=== PATIENT | male | born 1970 | race Caucasian/White ===

== ENCOUNTER 2020-05-10 18:21 | Outpatient (REF) | payer MEDICAID, SELFPAY ==
--- NOTE | 2020-05-10 | XR_ITS ---
EXAMINATION: XR KNEE, LEFT CLINICAL INFORMATION: Contusion of knee COMPARISON: None TECHNIQUE: Four views of the left knee. FINDINGS: No fracture or subluxation. Moderate medial compartment joint space narrowing. Tricompartmental marginal osteophytes are noted. Bipartite patella. No joint effusion. Prominent anterior soft tissue swelling. IMPRESSION: Prominent soft tissue swelling anteriorly. No acute osseous abnormality. Degenerative changes which are greatest at the medial compartment.
== END 2020-05-10 18:22 | disposition home or self-care (01) ==
LOC: HO.XRAY 18:21
PROVIDERS: PCP Internal Medicine; Visit Provider Emergency Medicine
DX: S80.02XA Contusion of left knee, initial encounter (principal)
CPT/HCPCS: 73564

== ENCOUNTER 2020-06-01 13:04 | Outpatient (REF) | payer MEDICAID, SELFPAY ==
--- NOTE | 2020-06-01 13:10 | XR_ITS ---
EXAMINATION: XR KNEE AP STANDING CLINICAL INFORMATION: Left knee pain COMPARISON: None TECHNIQUE: AP bilateral standing view of the knees was obtained. FINDINGS: Medial and lateral joint space compartments of the right knee are maintained with some mild marginal spurring about the medial joint space compartment. There is moderate narrowing of the medial joint space compartment of the left knee with marginal sclerosis and spurring. There is a bipartite patella present. No fracture or destructive bony lesion identified. XR/XR knee standing BI IMPRESSION: 1. No significant abnormality AP right knee. 2. Medial joint space compartment narrowing left knee. 3. Bipartite left patella.
== END 2020-06-01 13:05 | disposition home or self-care (01) ==
LOC: HO.HOSX 13:04
PROVIDERS: PCP Internal Medicine; Referring Provider Internal Medicine; Visit Provider Orthopaedic Surgery
DX: M17.12 Unilateral primary osteoarthritis, left knee (principal); M54.16 Radiculopathy, lumbar region
CPT/HCPCS: 20610; 73565; 99202; J1100

== ENCOUNTER 2020-07-14 08:24 | Outpatient (REF) | payer MEDICAID, SELFPAY | END 2020-07-14 08:25 | disposition home or self-care (01) | LOC: HO.LAB 08:24 | PROVIDERS: Visit Provider Internal Medicine | DX: Z20.828 Contact with and (suspected) exposure to other viral communicable diseases (principal) | CPT/HCPCS: C9803; U0003 ==

== ENCOUNTER → 2020-08-10 15:06 | Outpatient (BNVA) | payer MEDICAID, SELFPAY | PROVIDERS: PCP Internal Medicine; Visit Provider Anesthesiology | DX: M47.817 Spondylosis without myelopathy or radiculopathy, lumbosacral region (principal); M46.1 Sacroiliitis, not elsewhere classified; E66.01 Morbid (severe) obesity due to excess calories | CPT/HCPCS: 99202 ==

== ENCOUNTER 2020-08-29 07:38 | Outpatient (REF) | payer MEDICAID, SELFPAY ==
--- NOTE | 2020-08-29 07:59 | FL_ITS ---
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 TECHNIQUE: Fluoroscopy time: 0.6 minutes DAP: 12.9 Gycm2 Images: 6 Multiple intraoperative fluoroscopic images are submitted during multilevel injections of the lumbar spine. Correlation with operative report. Evaluation is limited secondary to fluoroscopic technique. IMPRESSION: Intra-operative fluoroscopic imaging provided by radiology multilevel injections of the lumbar spine. Please refer to operative note for further information.
== END 2020-08-29 07:39 | disposition home or self-care (01) ==
LOC: HO.RADIR 07:38
PROVIDERS: Visit Provider Anesthesiology
DX: M47.817 Spondylosis without myelopathy or radiculopathy, lumbosacral region (principal); M46.1 Sacroiliitis, not elsewhere classified; E66.01 Morbid (severe) obesity due to excess calories; E78.00 Pure hypercholesterolemia, unspecified
CPT/HCPCS: 64493; 64494; Q9967

== ENCOUNTER → 2020-09-04 09:20 | Outpatient (BNVA) | payer MEDICAID, SELFPAY | PROVIDERS: PCP Internal Medicine; Visit Provider Anesthesiology ==

== ENCOUNTER 2020-09-06 11:00 | Outpatient (RCR) | payer MEDICAID, SELFPAY | END 2020-10-26 12:23 | disposition other institution (70) | LOC: HO.PT 11:00 | PROVIDERS: PCP Internal Medicine; Visit Provider Internal Medicine | DX: M54.5 Low back pain (principal) | CPT/HCPCS: 97110; 97140; 97162; 97530 ==

== ENCOUNTER 2020-10-23 10:11 | Outpatient (REF) | payer MEDICAID, SELFPAY | END 2020-10-23 10:12 | disposition home or self-care (01) | LOC: HO.LAB 10:11 | PROVIDERS: Visit Provider Internal Medicine | DX: Z20.822 Contact with and (suspected) exposure to COVID-19 (principal) | CPT/HCPCS: 36415; C9803; U0003; U0005 ==

== ENCOUNTER 2020-12-04 15:36 | Outpatient (REF) | payer MEDICAID, SELFPAY | END 2020-12-04 15:37 | disposition home or self-care (01) | LOC: HO.LAB 15:36 | PROVIDERS: Visit Provider Internal Medicine | DX: Z20.822 Contact with and (suspected) exposure to COVID-19 (principal) | CPT/HCPCS: C9803; U0003; U0005 ==

== ENCOUNTER 2020-12-08 08:38 | Outpatient (REF) | payer MEDICAID, SELFPAY | END 2020-12-08 08:39 | disposition home or self-care (01) | LOC: HO.LAB 08:38 | PROVIDERS: Visit Provider Internal Medicine | DX: Z20.822 Contact with and (suspected) exposure to COVID-19 (principal) | CPT/HCPCS: C9803; U0003; U0005 ==

== ENCOUNTER → 2021-01-05 12:59 | Outpatient (BNVA) | payer MEDICAID, SELFPAY | PROVIDERS: PCP Internal Medicine; Referring Provider Internal Medicine; Visit Provider Nurse Practitioner Family | DX: Z01.818 Encounter for other preprocedural examination (principal); K59.00 Constipation, unspecified; K62.5 Hemorrhage of anus and rectum; K64.9 Unspecified hemorrhoids | CPT/HCPCS: 99202 ==

== ENCOUNTER → 2021-01-31 14:45 | Outpatient (BNVA) | payer MEDICAID, SELFPAY | PROVIDERS: Visit Provider Nurse Practitioner Family ==

== ENCOUNTER → 2021-02-22 08:47 | Outpatient (BNVA) | payer MEDICAID, SELFPAY | PROVIDERS: PCP Internal Medicine; Referring Provider Internal Medicine; Visit Provider Internal Medicine Cardiovascular Disease | DX: R06.01 Orthopnea (principal); R07.9 Chest pain, unspecified; R00.2 Palpitations; I42.9 Cardiomyopathy, unspecified; E11.9 Type 2 diabetes mellitus without complications; I10 Essential (primary) hypertension; E78.00 Pure hypercholesterolemia, unspecified; E66.01 Morbid (severe) obesity due to excess calories; Z68.36 Body mass index [BMI] 36.0-36.9, adult; Z79.899 Other long term (current) drug therapy | CPT/HCPCS: 93005; 99202 ==

== ENCOUNTER → 2021-03-29 10:08 | Outpatient (BNVA) | payer MEDICAID, SELFPAY | PROVIDERS: PCP Internal Medicine; Visit Provider Internal Medicine Pulmonary Disease | DX: G47.33 Obstructive sleep apnea (adult) (pediatric) (principal) | CPT/HCPCS: 99202 ==

== ENCOUNTER → 2021-04-05 08:36 | Outpatient (REF) | payer MEDICAID, SELFPAY ==
--- NOTE | 2021-04-05 08:42 | CA_ITS ---
Transthoracic Echocardiogram Patient (Last, First, Middle): Cole Hahn M Gender: Male Date of : 1970 Age: 50 Procedure Date: 04/05/2021 Procedure Type: Transthoracic Echocardiogram Location: OP Height: 182.88 cm Weight: 122.93 kg BSA: 2.42 m2 Heart Rate: bpm BP: 122 / 78 mmHg Spoke Maker: [email or web address] Referring MD: Drew Lindsey MD Symptoms: I42.9 - Cardiomyopathy, unspecified Conclusions: - Normal left ventricular size and systolic function. - Diastolic function is normal for age. - Normal right ventricular cavity size and systolic function. - No significant valvular or pericardial pathology. Findings Left Ventricle Normal left ventricular size and systolic function. There is moderately increased left ventricular wall thickness. The visually estimated ejection fraction is between 55-60%. There is no evidence of regional wall motion abnormalities. Diastolic function is normal for age. Right Ventricle Normal right ventricular cavity size and systolic function. Atria Both atria are normal in size. Aortic Valve Normal aortic valve structure and function. There is no aortic valve stenosis. There is no aortic valve regurgitation. Mitral Valve Normal mitral valve structure and function. There is no mitral valve regurgitation. There is no mitral valve stenosis. Pulmonic Valve The pulmonic valve is likely normal. Tricuspid Valve Normal tricuspid valve structure and function. There is trace tricuspid valve regurgitation. Normal right atrial pressure. There is no evidence of pulmonary hypertension. Great Vessels There is mild dilatation of the ascending aorta. The visualized portions of the pulmonary artery and branches are normal. Venous The inferior vena cava is normal in size and collapses greater than 50% with inspiration. Pericardium/Pleural There is no evidence of pericardial effusion. Prior Study Comparison No prior study available for comparison. Measurements 2D Linear Measurements IVSd: 1.35 0.6-0.9/0.6-1.0 cm LVIDd: 5.17 3.9-5.3/4.2-5.9 cm LVIDd Index: 2.14 2.4-3.2/2.2-3.1 cm/m2 LVIDs: 3.39 2.0-3.6 cm LVPWd: 1.41 0.7-1.1 cm Ao Root: 3.50 2.1-3.5 cm LA Diam: 3.90 2.7-3.8/3.0-4.0 cm LAIDs Index: 1.61 1.5-2.3 cm/m2 LV Mass: 374.91 67-162/88-224 g LV Mass Index: 154.92 43-95/49-115 g/m2 LVOT Diam: 2.40 3.0+(-)1.3 cm 2D Systolic Function EF 4C: 59.00 >55% EF 2C: 65.60 >55% EF BiP: 64.00 >55% Mitral Valve MV Pk E: 0.47 MV PK A: 0.62 MV Decel Time: 107.00 E/A: 0.80 E'Lateral: 6.85 E'Medial: 5.11 E/E' Med: 9.20 E/E' Lat: 6.90 PHT: 31.00 MVA PHT: 7.10 Decel Williamson: 4.42 Aortic Valve AoV Pk Eliazar: 1.49 AoV Pk Grad: 9.00 LVOT LVOT Pk Eliazar: 0.81 LVOT Mn Eliazar: 0.53 LVOT VTI: 0.15 LVOT Pk Grad: 3.00 LVOT Mn Grad: 1.00 LVOT Diam: 2.40 LVOT Area: 4.52 Diastolic Function MV Pk E: 0.47 MV Pk A: 0.62 E/A: 0.80 E'Medial: 5.11 E/E' Med: 9.20 E' Laterial: 6.85 E/E' Lat: 6.90 Right Ventricle TAPSE (mm): 2.14 Tricuspid Valve TR Pk Eliazar: 2.01 TR Pk Grad: 16.00 RA Press: 3.00 RVSP: 19.00 Great Vessels Aorta Ao Root-2D: 3.50 2.0-3.7 cm Ao Asc: 3.60 2.1-3.4 cm Updated in Other Vendor System with Status of Final Drew Lindsey MD electronically signed on 04/06/2021 8:40:11 PM with status of Final
--- NOTE | 2021-04-05 08:42 | CA_ITS ---
Acquisition Time: 2021-04-05 09:31:15 Total Exercise Time: 00:04:17 Test Indications: Dyspnea Medications: AMLODIPINE CITALOPRAM JARDIANCE LISINOPRIL METFORMIN Protocol: JULISSA Max HR: 153 BPM 90% of Pred: 170 BPM Max BP: 142/080 mmHG Max Work Load: 6.1 METS Exercise stress test with exercise 4 min 17 sec of Julissa protocol achieving 90% MPHR, and request to stop, with moderate shortness of breath and fatigue, no chest discomfort, with isolated PVC, with normotensive response to exercise, without EKG changes meeting criteria for ischemia. In recovery his breathing returned to baseline normal. Test reviewed with Dr Murcia. Referred By: Drew Lindsey Overread By: TALISHA FRITZ
== END ==
LOC: HO.CARD 08:36
PROVIDERS: Visit Provider Internal Medicine Cardiovascular Disease
DX: R07.9 Chest pain, unspecified (principal); I42.9 Cardiomyopathy, unspecified; R06.01 Orthopnea
CPT/HCPCS: 93017; 93306

== ENCOUNTER → 2021-04-18 12:01 | Outpatient (BNVA) | payer MEDICAID, SELFPAY | PROVIDERS: PCP Internal Medicine; Visit Provider Internal Medicine Cardiovascular Disease | DX: Z01.810 Encounter for preprocedural cardiovascular examination (principal); E66.01 Morbid (severe) obesity due to excess calories; I10 Essential (primary) hypertension; R07.9 Chest pain, unspecified | CPT/HCPCS: 99212 ==

== ENCOUNTER → 2021-05-02 09:46 | Outpatient (REF) | payer MEDICAID, SELFPAY ==
--- NOTE | ~2021-05-02 | US_ITS ---
EXAMINATION: US ABDOMEN COMPLETE CLINICAL INFORMATION: Abnormal LFTs. COMPARISON: None TECHNIQUE: Real-time imaging of the abdominal viscera. FINDINGS: PANCREAS: Normal. The visualized pancreatic head and body are normal in appearance. The remainder of the pancreas is obscured from visualization by the overlying bowel gas. ABDOMINAL AORTA: The proximal, mid, and distal segments are normal in caliber. INFERIOR VENA CAVA: Largely obscured by overlapping bowel gas. LIVER: The liver is normal in size. The liver contour is normal. There is diffuse increased liver parenchymal echotexture. Within the anterior segment of the right hepatic lobe, a 2.5 x 1.5 x 1.9 cm hypoechoic, partially obscured circumscribed mass is seen. This shows slight associated color Doppler flow. There is no intrahepatic biliary duct dilatation seen. GALLBLADDER: Normal. The gallbladder is physiologically distended without evidence of stones, sludge, polyps, wall thickening or pericholecystic fluid. COMMON BILE DUCT: Normal in caliber measuring 0.2 cm in diameter. RIGHT KIDNEY: Normal. No hydronephrosis. No renal calculi or focal parenchymal lesions. The kidney measures 12.6 cm in maximum dimension. LEFT KIDNEY: Normal. No hydronephrosis. No renal calculi or focal parenchymal lesions. The kidney measures 11.5 cm in maximum dimension. SPLEEN: Normal. The spleen measures 11.9 cm in maximum dimension. FREE FLUID: None. US/US abdomen complete IMPRESSION: 1. There is generalized increase in hepatic echotexture, consistent with fatty infiltration or hepatocellular disease. Please correlate clinically. No intrahepatic biliary dilatation is seen. 2. A 2.5 cm in maximal diameter hypoechoic mass is seen within the anterior segment of the right hepatic lobe. This is an indeterminate finding, and the possibility of neoplasm cannot be excluded with certainty on the basis of this ultrasound appearance. Recommend further evaluation with contrast-enhanced CT or MRI (liver mass protocol). 3. Technically limited ultrasound examination of the pancreatic tail and inferior vena cava. A preliminary report was provided by the [facility] on 05/03/2021.
== END ==
LOC: HO.SL 09:46
PROVIDERS: PCP Internal Medicine; Visit Provider Hospitalist
DX: G47.33 Obstructive sleep apnea (adult) (pediatric) (principal); R94.5 Abnormal results of liver function studies
CPT/HCPCS: 76700; 95806

== ENCOUNTER → 2021-05-17 11:31 | Outpatient (BNVA) | payer MEDICAID, SELFPAY | PROVIDERS: PCP Internal Medicine; Visit Provider Internal Medicine Pulmonary Disease | DX: Z01.811 Encounter for preprocedural respiratory examination (principal); G47.33 Obstructive sleep apnea (adult) (pediatric) | CPT/HCPCS: 99212 ==

== ENCOUNTER 2021-05-17 11:59 | Outpatient (REF) | payer MEDICAID, SELFPAY | END 2021-05-17 12:00 | disposition home or self-care (01) | LOC: HO.LAB 11:59 | PROVIDERS: PCP Internal Medicine; Visit Provider Internal Medicine | DX: Z20.822 Contact with and (suspected) exposure to COVID-19 (principal) | CPT/HCPCS: C9803; U0003; U0005 ==

== ENCOUNTER → 2021-06-01 09:20 | Outpatient (BNVA) | payer MEDICAID, SELFPAY | PROVIDERS: PCP Internal Medicine; Visit Provider Orthopaedic Surgery | DX: M17.12 Unilateral primary osteoarthritis, left knee (principal) | CPT/HCPCS: 20610; 99212; J1020 ==

== ENCOUNTER 2021-06-22 08:53 | Outpatient (REF) | payer MEDICAID, SELFPAY ==
--- NOTE | ~2021-06-22 | CT_ITS ---
EXAMINATION: CT CHEST WITHOUT CONTRAST CT ABDOMEN AND PELVIS WITHOUT AND WITH CONTRAST. CLINICAL INFORMATION: SOB and hypoxia. Hepatomegaly. COMPARISON: Chest x-ray 06/22/2021 TECHNIQUE: 5 mm thin axial and reformatted 3 mm thin sagittal and coronal images of chest were obtained. Subsequently axial 5 mm thin 85 mL nonionic contrast. DLP 397 mGy/cm. FINDINGS: Chest: There is moderate dense opacities seen in both upper lobes, lower lobes, right middle lobe and to a lesser extent in the lingula consistent with multilobar infiltrates. No large mass or nodule visualized. The thyroid lobes are symmetrical and normal. The central trachea and bronchi are widely patent. Heart size and the great vessels are normal caliber. No pericardial effusion seen. There are small shotty para-aortic lymph nodes. There is no pleural effusion, calcified plaques or thickening. Small shotty lymph nodes seen in the axilla. There is moderate ventral spondylosis mid and lower dorsal spine. No lytic or sclerotic process seen. Abdomen and pelvis: There are liver is normal size, contour and density. Liver measures 15 cm in craniocaudad length on sagittal image 116/7 No focal enhancing lesion or intrahepatic ductal dilatation seen. No bowel stones or wall thickening. Visualized spleen, pancreas and bilateral adrenal glands are unremarkable. Both kidneys are normal size, shape and position. There is no radiopaque renal calculi or hydronephrosis. There is no enhancing renal mass or cyst. No perinephric stranding seen. The abdominal aorta is normal caliber. There are small shotty lymph nodes in the celiac axis with the largest 1.2 cm lymph node noted on axial image 57/5. There is oral contrast opacifying small bowel loops and colon without any distention or mural thickening. No free air or free fluid. Imaging through the pelvis reveals unremarkable bladder. There is mild to moderate stool in the rectum and sigmoid colon. No free fluid or free air. No abnormal pelvic or inguinal lymph nodes. Bone windows reveal degenerative disc changes with vacuum disc phenomena L4-L5 and L5/S1 disc levels with ventral spondylosis. CT/CT abdomen pelvis wo/w con IMPRESSION: Multilobar infiltrates without pleural effusion. Reactive lymph nodes in the mediastinum. Borderline normal liver with no focal lesion seen. Small shotty lymph nodes in the celiac axis. Mild constipation.
[2021-06-22] MEDS: iohexoL 350 MG/ML 100 ML INFUS..BTL IV (09:54)
== END 2021-06-22 08:54 | disposition home or self-care (01) ==
LOC: HO.CT 08:53
PROVIDERS: PCP Internal Medicine; Visit Provider Internal Medicine
DX: R16.0 Hepatomegaly, not elsewhere classified (principal); R06.02 Shortness of breath; R09.02 Hypoxemia
CPT/HCPCS: 74178; Q9967

== ENCOUNTER 2021-06-22 09:59 | Inpatient (IN) | payer MEDICAID, SELFPAY ==
[2021-06-22] VITALS (9 sets, daily range): BP systolic 97–108; BP diastolic 51–67; PULSE 77–117; RESP 15–22; TEMP 37.1–38.2; O2SAT 86–96; BMI 30.8
--- NOTE | ~2021-06-22 | CT_ITS ---
EXAMINATION: CT CHEST WITHOUT CONTRAST CT ABDOMEN AND PELVIS WITHOUT AND WITH CONTRAST. CLINICAL INFORMATION: SOB and hypoxia. Hepatomegaly. COMPARISON: Chest x-ray 06/22/2021 TECHNIQUE: 5 mm thin axial and reformatted 3 mm thin sagittal and coronal images of chest were obtained. Subsequently axial 5 mm thin 85 mL nonionic contrast. DLP 397 mGy/cm. FINDINGS: Chest: There is moderate dense opacities seen in both upper lobes, lower lobes, right middle lobe and to a lesser extent in the lingula consistent with multilobar infiltrates. No large mass or nodule visualized. The thyroid lobes are symmetrical and normal. The central trachea and bronchi are widely patent. Heart size and the great vessels are normal caliber. No pericardial effusion seen. There are small shotty para-aortic lymph nodes. There is no pleural effusion, calcified plaques or thickening. Small shotty lymph nodes seen in the axilla. There is moderate ventral spondylosis mid and lower dorsal spine. No lytic or sclerotic process seen. Abdomen and pelvis: There are liver is normal size, contour and density. Liver measures 15 cm in craniocaudad length on sagittal image 116/7 No focal enhancing lesion or intrahepatic ductal dilatation seen. No bowel stones or wall thickening. Visualized spleen, pancreas and bilateral adrenal glands are unremarkable. Both kidneys are normal size, shape and position. There is no radiopaque renal calculi or hydronephrosis. There is no enhancing renal mass or cyst. No perinephric stranding seen. The abdominal aorta is normal caliber. There are small shotty lymph nodes in the celiac axis with the largest 1.2 cm lymph node noted on axial image 57/5. There is oral contrast opacifying small bowel loops and colon without any distention or mural thickening. No free air or free fluid. Imaging through the pelvis reveals unremarkable bladder. There is mild to moderate stool in the rectum and sigmoid colon. No free fluid or free air. No abnormal pelvic or inguinal lymph nodes. Bone windows reveal degenerative disc changes with vacuum disc phenomena L4-L5 and L5/S1 disc levels with ventral spondylosis. CT/CT chest wo con IMPRESSION: Multilobar infiltrates without pleural effusion. Reactive lymph nodes in the mediastinum. Borderline normal liver with no focal lesion seen. Small shotty lymph nodes in the celiac axis. Mild constipation.
--- NOTE | ~2021-06-22 | XR_ITS ---
EXAMINATION: XR CHEST CLINICAL INFORMATION: Abnormal LFTs. Subcapsular lesion right hepatic lobe on ultrasound 2.5 cm. COMPARISON: Ultrasound abdomen 05/02/2021. TECHNIQUE: Portable upright AP view of the chest was obtained. FINDINGS: There are small ill-defined airspace opacities periphery left upper zone and mid right base. There is a vague rounded opacity right suprahilar region measuring 2.6 cm in diameter. The heart is normal in size. The vascularity is normal. There is no effusion. The hilar and mediastinal contours are normal. There are degenerative changes thoracic spine. XR/XR chest 1V IMPRESSION: 1. Ill-defined airspace opacities left upper zone and right mid base. 2. Rounded opacity 2.6 cm right suprahilar region. 3. No effusion.
--- NOTE | 2021-06-22 10:01 | ED.URI ---
HPI - URI/Sore Throat General Chief Complaint: Upper Respiratory Symptoms Stated Complaint: flu like Time Seen by Provider: 06/22/21 10:01 Source: patient Mode of arrival: ambulatory Limitations: no limitations History of Present Illness HPI Narrative: 51 yo male past medical history significant for obesity, hypertension, diabetes, sleep apnea, chronic back pain presents to the ED with complaints of malaise, cough, body aches times 1 week. Patient tells me that the symptoms have been progressively worsening, he says his cough is generally dry but at times he has some sputum production, he tells me there is thick sputum. He states that when he walks he feels as though his entire body hurts, and at times become short of breath. Patient is not vaccinated against COVID-19. He denies recent sick contacts. He denies chest pain, headaches, dizziness, fevers, chills, nausea, vomiting, rhinorrhea, sinus pain. MD elicited complaint: cough Pertinent past history: other (LIANE) Onset (ago): week(s) (1) Consistency: constant Severity: severe Description of mucous: other (thick) Able to tolerate fluids by mouth: Yes Exacerbating factors: nothing Relieving factors: nothing Associated symptoms: myalgias, cough and shortness of breath Treatments prior to arrival: none Related Data Home Medications Medication Instructions Recorded Confirmed empagliflozin 10 mg tablet 10 mg PO DAILY 08/29/20 06/07/21 (Jardiance) lisinopril 30 mg tablet 30 mg PO DAILY 08/29/20 06/07/21 melatonin 5 mg tablet 10 mg PO BEDTIME PRN 08/29/20 06/07/21 citalopram 10 mg/5 mL oral solution 10 mg PO DAILY 01/31/21 04/18/21 Previous Rx's Medication Instructions Recorded docusate sodium 100 mg capsule 100 mg PO BEDTIME #30 cap 01/05/21 hydrocortisone 2.5 % topical cream 1 appl TN BID-QID PRN #30 g 01/05/21 with perineal applicator (Anusol-HC) amlodipine 10 mg tablet 10 mg PO DAILY #60 tab 02/22/21 bisacodyl 5 mg tablet,delayed 10 mg PO ONCE 1 Days #2 tab 05/29/21 release (Dulcolax (bisacodyl)) lorazepam 2 mg capsule,extended 2 mg PO ONCE #5 cap 06/07/21 release 24 hr Allergies Allergy/AdvReac Type Severity Reaction Status Date / Time No Known Allergies Allergy Verified 06/07/21 13:24 Review of Systems Review of Systems: Constitutional : No Weight loss, No Fever, No Chills, No Fatigue, + Malaise ENT/Mouth : No sore throat, No Rhinorrhea Eyes: No Eye Pain, No Swelling, No Redness Cardiovascular : No Chest Pain, No SOB, No Dyspnea on Exertion, No Orthopnea, No Edema, No Palpitations Respiratory : + Cough, + Sputum, No Wheezing Gastrointestinal : No Nausea, No Vomiting, No Diarrhea, No Constipation, No abdominal Pain, No Hematochezia, No Melena Genitourinary : No Dysuria, No Urinary Frequency, No Hematuria, Musculoskeletal : No joint pain, + Myalgias, No Joint Swelling Skin : No Skin Lesions, No rash Neuro : No Weakness, No Numbness, No Dizziness, No Headache All other systems reviewed and are negative Yes all other systems are reviewed and are negative [facility] Past Medical History Attestation statement: The following information was validated with the patient. Source: old records reviewed and nursing notes reviewed Medical History (Updated 06/22/21 @ 14:11 by Ye Manley MD) Arthritis Blind left eye Chronic back pain Diabetes High cholesterol HTN (hypertension) Left knee pain Lumbar back pain with radiculopathy affecting lower extremity Morbid obesity Osteoarthritis of left knee Sacroiliitis Sleep apnea Spondylosis of lumbosacral spine without myelopathy Surgical History History of hernia surgery History of testicular surgery S/P nasal surgery Family History Family History (Updated 06/07/21 @ 13:27 by Tamiko Alberto RN) Mother Intestinal cancer Brother Narcolepsy Social History Social History Alcohol intake: current Alcohol intake frequency: a few times a week Alcohol type: beer and hard liquor Patient Tobacco Use Status: Never used Tobacco Use of substances other than those prescribed or required for medical reasons: No Advance Directives: No Advance Directives Information Provided: No Current occupational status: unemployed Current occupation: left handed Physical Exam Vital Signs: Vital Signs: Last Vital Signs Temp 100.2 F 06/22/21 12:19 Pulse 90 06/22/21 13:02 Resp 20 06/22/21 13:02 BP 106/67 06/22/21 13:02 Pulse Ox 93 06/22/21 13:02 Body Mass Index 30.8 Patients vitals significant for fever and tachycardia. Appearance: Alert.? Oriented X3.? No acute distress.? Head: Normocephalic, atraumatic, no step-offs or deformities Eyes: Pupils equal, round and reactive to light.? ENT: Pharynx normal.? Neck: Normal inspection.? Neck supple.? CVS: Rapid heart rate and normal rhythm.? Pulses normal.? Respiratory: No respiratory distress.?+ diminished breath sounds bilaterally Abdomen: Soft and nontender.? Skin: Skin warm and dry.? Normal skin color.? Normal skin turgor.? Extremities: No lower extremity edema.? No calf ttp. 5/5 strength to bilateral upper and lower extremities Back: No midline tenderness, no C-spine tenderness, full range of motion, no CVA tenderness bilaterally Neuro: Oriented X 3.? No motor deficit.? No sensory deficit. Course Reevaluation(s) Reevaluation #1: No leukocytosis, a normocytic anemia is noted, lactic acid 1.4, no acute electrolyte abnormalities, transaminases noted to be elevated they were also elevated on , Trop 10.6 second trop ordered for 2:30. BNP WNL. D-dimer pending Time: 12:00 Reevaluation #2: D-dimer negative. No need to do a CTA at this time, perc score of 1 due to age. Unlikely that this is a pulmonary embolism. Patient is febrile, Tylenol will be given. He remains hypoxic saturating 90% on room air, now havign slightly labored breathing. He will be placed on 2 L via nasal cannula. An ambulatory O2 will also be done. Patient will likely be admitted due to hypoxia. Time: 12:42 Reevaluation #3: CXR-shows an ill-defined airspace opacities in the left upper zone and right middle base. Also shows a rounded opacity 2.6 cm in the right suprahilar region. No effusions noted or consolidations. Time: 12:53 Additional Reevaluation(s): Dry chest CT orderd Naima KELLY will be admitting this patient [facility] - URI/Sore Throat MDM Narrative Medical decision making narrative: 1001 51 yo male pmhx significant for obesity, HTN, DM, sleep apnea, chronic back pain presents to the ED w/ complaints of productive cough, SOB, malaise X1 week. Not vaccinated. No sick contacts Upon physical examination patient appears well, no acute distress. Vital signs significant for tachycardia and hypoxia, patient 91% on room air. No labored breathing no use of accessory muscles for breathing. S1-S2 appreciated with a rapid regular rhythm. Lung sounds diminished bilaterally. Abdomen soft nontender nondistended. 5/5 strength upper and lower extremities. Pupils equal round and reactive to light. No focal neuro deficits. Plan at this time is to obtain a COVID swab, and chest x-ray to rule out pneumonia. Medical Records Attestation: I reviewed the patient's medical records. Lab Data Attestation: I reviewed the patient's lab results. Result diagrams: 06/22/21 11:33 06/22/21 11:33 Labs: Lab Results 06/22/21 06/22/21 06/22/21 Range/Units 11:14 11:33 11:33 WBC 6.4 (4.8-10.8) X10*3/uL RBC 4.35 L (4.60-5.80) X10*6/uL Hgb 13.9 L (14.0-18.0) g/dl Hct 41.1 L (42.0-52.0) % MCV 94.5 (80.0-98.0) fL MCH 32.0 (27.0-33.0) pg MCHC 33.8 (31.0-36.0) g/dl RDW 12.0 (11.0-16.0) % Plt Count 200 (160-400) X10*3/uL MPV 11.3 (9.4-12.4) fL Immature Gran % (Auto) 0.5 H (0.0-0.4) % Neut % (Auto) 77.2 H (45-73) % Lymph % (Auto) 11.1 L (20-40) % [place] % (Auto) 11.0 (2-11) % Eos % (Auto) 0.0 (0-4) % Baso % (Auto) 0.2 (0-2) % Lymph # (Auto) 0.7 L (1.2-4.9) X10*3/uL [place] # (Auto) 0.7 (0.1-1.2) X10*3/uL Eos # (Auto) 0.0 (0.0-0.4) X10*3/uL Baso # (Auto) 0.0 (0.0-0.2) X10*3/uL Abs Immat Gran (auto) 0.03 (0.00-0.03) X10*3/uL Absolute Neuts (auto) 4.9 (2.0-8.3) x10*3/uL Absolute Nucleated RBC 0.000 (0.0-0.012) X10*3/uL Nucleated RBC % (auto) 0.0 (0.0-0.2) /100WBC D-Dimer High Sensitivty 161 NG/ML Sodium (135-145) mmol/L Potassium (3.3-5.1) mmol/L Chloride (96-108) mmol/L Carbon Dioxide (22-29) mmol/L Anion Gap (12-20) BUN (9-16) mg/dL Creatinine (0.5-1.4) mg/dL Estim Creat Clear Calc Estimated GFR Random Glucose (60-115) mg/dL Lactic Acid (0.5-2.0) mmol/L Calcium (8.4-10.2) mg/dL Magnesium (1.6-2.6) mg/dL Total Bilirubin (0.0-1.0) mg/dL AST (5-37) U/L ALT (0-40) U/L Alkaline Phosphatase (39-117) U/L Troponin I High Sens (<3.5-35.0) ng/L B-Natriuretic Peptide (<100) pg/mL Total Protein (6.5-8.0) g/dL Albumin (3.5-5.0) g/dL COVID-19 (ALLEN) Positive A (Negative) COVID-19 Clin Com See Note 06/22/21 06/22/21 06/22/21 Range/Units 11:33 11:33 11:35 WBC (4.8-10.8) X10*3/uL RBC (4.60-5.80) X10*6/uL Hgb (14.0-18.0) g/dl Hct (42.0-52.0) % MCV (80.0-98.0) fL MCH (27.0-33.0) pg MCHC (31.0-36.0) g/dl RDW (11.0-16.0) % Plt Count (160-400) X10*3/uL MPV (9.4-12.4) fL Immature Gran % (Auto) (0.0-0.4) % Neut % (Auto) (45-73) % Lymph % (Auto) (20-40) % [place] % (Auto) (2-11) % Eos % (Auto) (0-4) % Baso % (Auto) (0-2) % Lymph # (Auto) (1.2-4.9) X10*3/uL [place] # (Auto) (0.1-1.2) X10*3/uL Eos # (Auto) (0.0-0.4) X10*3/uL Baso # (Auto) (0.0-0.2) X10*3/uL Abs Immat Gran (auto) (0.00-0.03) X10*3/uL Absolute Neuts (auto) (2.0-8.3) x10*3/uL Absolute Nucleated RBC (0.0-0.012) X10*3/uL Nucleated RBC % (auto) (0.0-0.2) /100WBC D-Dimer High Sensitivty NG/ML Sodium 133 L (135-145) mmol/L Potassium 4.3 (3.3-5.1) mmol/L Chloride 98 (96-108) mmol/L Carbon Dioxide 22 (22-29) mmol/L Anion Gap 17 (12-20) BUN 13 (9-16) mg/dL Creatinine 1.16 (0.5-1.4) mg/dL Estim Creat Clear Calc 98.9 Estimated GFR > 60 Random Glucose 193 H (60-115) mg/dL Lactic Acid 1.4 (0.5-2.0) mmol/L Calcium 8.8 (8.4-10.2) mg/dL Magnesium 2.5 (1.6-2.6) mg/dL Total Bilirubin 0.7 (0.0-1.0) mg/dL AST 115 H (5-37) U/L ALT 72 H (0-40) U/L Alkaline Phosphatase 84 D (39-117) U/L Troponin I High Sens 10.6 (<3.5-35.0) ng/L B-Natriuretic Peptide 13 (<100) pg/mL Total Protein 7.5 (6.5-8.0) g/dL Albumin 4.0 (3.5-5.0) g/dL COVID-19 (ALLEN) (Negative) COVID-19 Clin Com Imaging Data Chest x-ray: Attestation: I personally reviewed and interpreted this imaging study as follows: Radiologist's impression: XR/XR chest 1V IMPRESSION: ? 1. Ill-defined airspace opacities left upper zone and right mid base. 2. Rounded opacity 2.6 cm right suprahilar region. 3. No effusion. ECG Data Attestation: I personally reviewed and interpreted this ECG as follows: ECG interpretation date: 06/22/21 ECG interpretation time: 11:10 Prior ECG tracings: available for review Interpretation: Ventricular rate of 104, TN normal, QRS normal, QT/QTC normal. EKG shows sinus tachycardia with right bundle branch block. No ST elevations or inversions. No acute ischemia. No previous EKGs to compare with. Critical Care Time Critical Care Time Critical Care Time: No Discharge Plan Discharge Clinical Impression: Hypoxia, COVID Patient Disposition: Admitted As Inpatient
--- NOTE | 2021-06-22 10:35 | ECG_ITS ---
Test Reason : FLU LIKE SYMP Blood Pressure : / mmHG Vent. Rate : 104 BPM Atrial Rate : 104 BPM P-R Int : 166 ms QRS Dur : 128 ms QT Int : 360 ms P-R-T Axes : 048 000 031 degrees QTc Int : 473 ms Sinus tachycardia Right bundle branch block Abnormal ECG No previous ECGs available Referred By: Ugo Dimas Electronically Signed By:KAMRAN CHI MD
[2021-06-22 11:45] LABS: MANUAL DIFF FLAG NO
[2021-06-22 11:48] LABS: Basophils Percent Auto 0.2 % (0-2); Hematocrit 41.1 % (42.0-52.0); Hemoglobin 13.9 g/dl (14.0-18.0); Imm Gran Abs Auto 0.03 X10*3/uL (0.00-0.03); Imm Gran Pct Auto 0.5 % (0.0-0.4); Lymphocytes Absolute Auto 0.7 X10*3/uL (1.2-4.9); Lymphocytes Percent Auto 11.1 % (20-40); Mean Corpuscular HGB Conc 33.8 g/dl (31.0-36.0); Mean Corpuscular Volume 94.5 fL (80.0-98.0); Mean Platelet Volume 11.3 fL (9.4-12.4); Monocytes Absolute Auto 0.7 X10*3/uL (0.1-1.2); Neutrophils Absolute Auto 4.9 x10*3/uL (2.0-8.3); Neutrophils Percent Auto 77.2 % (45-73); Platelet Count 200 X10*3/uL (160-400); Red Blood Count 4.35 X10*6/uL (4.60-5.80); White Blood Count 6.4 X10*3/uL (4.8-10.8)
[2021-06-22 11:58] LABS: COVID-19 Test Positive (Negative); IDNOW Serial# 9DD0AD1C
[2021-06-22 12:01] LABS: Lactic Acid 1.4 mmol/L (0.5-2.0)
[2021-06-22 12:05] LABS: D Dimer High Sensitivity 161 NG/ML
[2021-06-22 12:08] LABS: Alanine Aminotransferase 72 U/L (0-40); Alkaline Phosphatase 84 U/L (39-117); Anion Gap 17 (12-20); Aspartate Amino Transferase 115 U/L (5-37); Bilirubin Total 0.7 mg/dL (0.0-1.0); Blood Urea Nitrogen 13 mg/dL (9-16); Calcium 8.8 mg/dL (8.4-10.2); Carbon Dioxide 22 mmol/L (22-29); Chloride 98 mmol/L (96-108); Creatinine Clr Calc Pharmacy 98.9; Estimated Glomerular Filt Rate > 60; Glucose Random 193 mg/dL (60-115); Magnesium 2.5 mg/dL (1.6-2.6); Potassium 4.3 mmol/L (3.3-5.1); Sodium 133 mmol/L (135-145); Total Protein 7.5 g/dL (6.5-8.0)
[2021-06-22 12:09] LABS: B Type Natriuretic Peptide 13 pg/mL (<100); Troponin-I High Sensitivity 10.6 ng/L (<3.5-35.0)
[2021-06-22] MEDS: 0.9 % Sodium Chloride 1,000 ML 999 ML IV (12:14)
[2021-06-22] MEDS: Acetaminophen 325 MG TABLET 650 MG PO (12:59)
--- NOTE | 2021-06-22 13:01 | PC.NURSE ---
ambulatory sats maintained at 92% around the room, but hr increased to 107
--- NOTE | 2021-06-22 14:37 | P.HPHOSP_ITS ---
History of Present Illness Date of Service: 06/22/21 Chief Complaint: Shortness of breath 51-year-old male presented with shortness of breath. Patient states with left past 5 days he has been feeling unwell, he has been having shortness of breath, worse on exertion, associated with dry cough and loss of taste. He denies any sick contacts. He notes some chills and subjective fevers. He has not been vaccinated against COVID. In ED patient found to be hypoxic, 86% on room air, COVID positive. Review of Systems Review of Systems: Constitutional: fever, Chills Eyes: denies blurry vision ENT: denies sore throat CVS:chest pain with cough Respiratory: dyspnea GI: no abdominal pain : denies dysuria MSK: denies neck pain Skin: denies rash Neuro: denies specific motor weakness Psych: denies suicidal ideation Endocrine: denies heat/cold intolerance Hematologic: denies easy bleeding Allergy: denies hives [facility] Medical History (Updated 06/22/21 @ 14:40 by Ye Manley MD) Arthritis Blind left eye Chronic back pain Diabetes High cholesterol HTN (hypertension) Left knee pain Lumbar back pain with radiculopathy affecting lower extremity Morbid obesity Osteoarthritis of left knee Sacroiliitis Sleep apnea Family History Mother Intestinal cancer Brother Narcolepsy Surgical History History of hernia surgery History of testicular surgery S/P nasal surgery Social History Alcohol intake: current Alcohol intake frequency: a few times a week Alcohol type: beer and hard liquor Patient Tobacco Use Status: Never used Tobacco Use of substances other than those prescribed or required for medical reasons: No Advance Directives: No Advance Directives Information Provided: No Current occupational status: unemployed Current occupation: left handed Meds Allergies Allergy/AdvReac Type Severity Reaction Status Date / Time No Known Allergies Allergy Verified 06/07/21 13:24 Active Medications: Current Medications Pharmacy Consult (Consult Rx Perform Med Rec) 1 each MISCELLANE ONCE PRN PRN Reason: Consult order Home Medications Medication Instructions Recorded Confirmed Last Taken Type empagliflozin 10 mg tablet 10 mg PO DAILY 08/29/20 06/07/21 Unknown History (Jardiance) lisinopril 30 mg tablet 30 mg PO DAILY 08/29/20 06/07/21 Unknown History melatonin 5 mg tablet 10 mg PO BEDTIME PRN 08/29/20 06/07/21 Unknown History citalopram 10 mg/5 mL oral solution 10 mg PO DAILY 01/31/21 04/18/21 Unknown History Physical Exam Vital Signs and Narrative: Vital Signs: Last Vital Signs Temp 99.1 F 06/22/21 14:32 Pulse 88 06/22/21 14:32 Resp 20 06/22/21 14:32 BP 97/60 06/22/21 14:32 Pulse Ox 96 06/22/21 14:34 Body Mass Index 30.8 General: Fatigued-appearing, able to talk in short sentences HEENT: atraumatic Neck: normal to visual inspection CVS: S1, S2, RRR Resp: diminished, mild use of accessory muscles Chest: non tender GI: soft, non tender, non distended : no CVA tenderness Skin: no rashes Extremities: no edema Neuro: Oriented X3, grossly intact Psych: cooperative Results Labs CBC and Chem 7: 06/22/21 11:33 06/22/21 11:33 Labs: Laboratory Results - last 24 hr 06/22/21 06/22/21 06/22/21 11:14 11:33 11:33 MCV 94.5 MCH 32.0 MCHC 33.8 RDW 12.0 Plt Count 200 MPV 11.3 Immature Gran % (Auto) 0.5 H Neut % (Auto) 77.2 H Lymph % (Auto) 11.1 L [place] % (Auto) 11.0 Eos % (Auto) 0.0 Baso % (Auto) 0.2 Lymph # (Auto) 0.7 L [place] # (Auto) 0.7 Eos # (Auto) 0.0 Baso # (Auto) 0.0 Abs Immat Gran (auto) 0.03 Absolute Neuts (auto) 4.9 Absolute Nucleated RBC 0.000 Nucleated RBC % (auto) 0.0 D-Dimer High Sensitivty 161 Anion Gap Estim Creat Clear Calc Estimated GFR Random Glucose Lactic Acid Calcium Magnesium Total Bilirubin AST ALT Alkaline Phosphatase Troponin I High Sens B-Natriuretic Peptide Total Protein Albumin COVID-19 (ALLEN) Positive A COVID-19 Clin Com See Note 06/22/21 06/22/21 06/22/21 11:33 11:33 11:35 MCV MCH MCHC RDW Plt Count MPV Immature Gran % (Auto) Neut % (Auto) Lymph % (Auto) [place] % (Auto) Eos % (Auto) Baso % (Auto) Lymph # (Auto) [place] # (Auto) Eos # (Auto) Baso # (Auto) Abs Immat Gran (auto) Absolute Neuts (auto) Absolute Nucleated RBC Nucleated RBC % (auto) D-Dimer High Sensitivty Anion Gap 17 Estim Creat Clear Calc 98.9 Estimated GFR > 60 Random Glucose 193 H Lactic Acid 1.4 Calcium 8.8 Magnesium 2.5 Total Bilirubin 0.7 AST 115 H ALT 72 H Alkaline Phosphatase 84 D Troponin I High Sens 10.6 B-Natriuretic Peptide 13 Total Protein 7.5 Albumin 4.0 COVID-19 (ALLEN) COVID-19 Clin Com Imaging Radiologist's Impressions: Impressions Chest X-Ray 06/22/21 10:16 IMPRESSION: 1. Ill-defined airspace opacities left upper zone and right mid base. 2. Rounded opacity 2.6 cm right suprahilar region. 3. No effusion. Assessment and Plan (1) Acute respiratory failure with hypoxia: Status: Acute (2) COVID: Status: Acute 51-year-old male presented with shortness of breath, found to be hypoxic and positive COVID acute hypoxic respiratory failure secondary to COVID pneumonia in a high risk patient given morbid obesity, fatty liver, diabetes, sleep apnea, non vaccinated wean O2 as tolerated, goal saturation 90-93% Decadron diabetes insulin, follow-up point of cares fatty liver likely alcoholic and nonalcoholic fatty liver weight loss, encourage not use alcohol liver mass outpatient follow-up 2.6 cm right suprahilar rounded opacity outpatient follow-up LIANE/ morbid obesity patient does not use any devices hypertension amlodipine and lisinopril hypertriglyceridemia will start fenofibrate DVT prophylaxis -lovenox Quality Stroke Does the patient have a stroke diagnosis?: No VTE Prior VTE?: No VTE Risk Level:: Medical - moderate - high VTE Device Contraindication: Treatment Not Indicated VTE Drug Contraindication: N/A - Med Ordered
[2021-06-22 15:01] LABS: Troponin-I High Sensitivity 8.4 ng/L (<3.5-35.0)
--- NOTE | 2021-06-22 15:05 | PHA.MEDREC ---
MED REC COMPLETE, MEDS REVIEWED WITH [employer] Pharmacy Consult ? Medication Reconciliation Pharmacy has completed the medication reconciliation.
[2021-06-22] MEDS: dexAMETHasone sod phosphate 4 MG/ML VIAL 6 MG IVPUSH (15:41)
[2021-06-22] MEDS: 0.9 % Sodium Chloride Flush 3 ML SYRINGE IVFLUSH (15:42)
[2021-06-22] MEDS: Enoxaparin Sodium 40 MG/0.4 ML SYRINGE SUBCUT (15:42)
[2021-06-22 18:02] LABS: Glucose, Whole Blood 135 mg/dL (60-115)
[2021-06-22 20:57] LABS: Glucose, Whole Blood 215 mg/dL (60-115)
[2021-06-22] MEDS: Insulin Lispro 100 UNIT/ML 3 ML VIAL SUBCUT (21:42)
[2021-06-22] MEDS: Fenofibrate 160 MG TABLET PO (21:42)
[2021-06-23] VITALS (7 sets, daily range): BP systolic 104–138; BP diastolic 63–84; PULSE 71–101; RESP 18–20; TEMP 36.3–36.8; O2SAT 93–99; BMI 30.5
[2021-06-23 05:40] LABS: Hematocrit 41.5 % (42.0-52.0); Mean Corpuscular HGB Conc 33.7 g/dl (31.0-36.0); Mean Corpuscular Hemoglobin 32.1 pg (27.0-33.0); Mean Corpuscular Volume 95.2 fL (80.0-98.0); Platelet Count 179 X10*3/uL (160-400); Red Blood Count 4.36 X10*6/uL (4.60-5.80); Red Cell Distribution Width 11.9 % (11.0-16.0); White Blood Count 2.9 X10*3/uL (4.8-10.8)
[2021-06-23 05:53] LABS: Anion Gap 14 (12-20); Blood Urea Nitrogen 11 mg/dL (9-16); Calcium 8.6 mg/dL (8.4-10.2); Carbon Dioxide 25 mmol/L (22-29); Chloride 102 mmol/L (96-108); Creatinine Clr Calc Pharmacy 141.1; Estimated Glomerular Filt Rate > 60; Glucose Fasting 141 mg/dL (60-99); Lactate Dehydrogenase 220 U/L (118-273); Potassium 4.5 mmol/L (3.3-5.1); Sodium 136 mmol/L (135-145)
[2021-06-23 07:54] LABS: Glucose, Whole Blood 145 mg/dL (60-115)
[2021-06-23] MEDS: Escitalopram Oxalate 20 MG TABLET PO (08:27)
[2021-06-23] MEDS: dexAMETHasone sod phosphate 4 MG/ML VIAL 6 MG IVPUSH (08:27)
[2021-06-23] MEDS: 0.9 % Sodium Chloride Flush 3 ML SYRINGE IVFLUSH ×3 (08:28→20:32)
--- NOTE | 2021-06-23 10:45 | P.PNIM_ITS ---
Subjective Subjective Date of Service: 06/23/21 Interval History: cc: sob interval history: Cardiovascular Cardiovascular: Reports no additional cardiovascular complaints Respiratory Respiratory: Reports no additional respiratory complaints Physical Exam Vital Signs: Vital Signs: Last Vital Signs Temp 98.2 F 06/23/21 07:30 Pulse 71 06/23/21 07:30 Resp 18 06/23/21 07:30 BP 104/63 06/23/21 07:30 Pulse Ox 93 06/23/21 07:30 Body Mass Index 30.5 General: AO X 3, no acute distress Resp: diminished, no accessory muscles used CVS: S1,S2,RRR GI: soft, non tender, non distended Neuro: motor grossly intact, alert Psych: appropriate affect, appropriate insight Objective Data Active Medications Acetaminophen (Acetaminophen 325 Mg Tablet) 650 mg PO Q6H PRN PRN Reason: Pain, Mild (Pain Scale 1-3) Amlodipine Besylate (Amlodipine Besylate 10 Mg Tablet) 10 mg PO DAILY [facility]; Protocol Last Admin: 06/23/21 09:59 Dose: Not Given Documented by: DARLIN Non-Admin Reason: Decreased Blood Pressure Dexamethasone Sodium Phosphate (Dexamethasone Sod Phosphate 4 Mg/Ml Vial) 6 mg IVPUSH DAILY [facility] Last Admin: 06/23/21 08:27 Dose: 6 mg Documented by: DARLIN Dextrose (Dextrose 50 % 25 Gm/50 Ml Vial) 25 gm IVPUSH Q15M PRN; Protocol PRN Reason: per Hypoglycemia Standing Ord. Enoxaparin Sodium (Enoxaparin Sodium 40 Mg/0.4 Ml Syringe) 40 mg SUBCUT Q24H [facility] Last Admin: 06/22/21 15:42 Dose: 40 mg Documented by: SHAYY Escitalopram Oxalate (Escitalopram Oxalate 20 Mg Tablet) 20 mg PO DAILY [facility] Last Admin: 06/23/21 08:27 Dose: 20 mg Documented by: DARLIN Fenofibrate (Fenofibrate 160 Mg Tablet) 160 mg PO BEDTIME [facility] Last Admin: 06/22/21 21:42 Dose: 160 mg Documented by: HOLLY Glucose (Glucose Gel 15 Gm Gel..Gram.) 15 gm PO Q15M PRN; Protocol PRN Reason: per Hypoglycemia Standing Ord. Insulin Human Lispro (Insulin Lispro 100 Unit/Ml 3 Ml Vial) 0 unit SUBCUT QIDACHS [facility]; Protocol Last Admin: 06/23/21 08:31 Dose: Not Given Documented by: DARLIN Non-Admin Reason: No Insulin Coverage Lisinopril (Lisinopril 10 Mg Tablet) 30 mg PO DAILY [facility]; Protocol Last Admin: 06/23/21 09:59 Dose: Not Given Documented by: DARLIN Non-Admin Reason: Decreased Blood Pressure Pharmacy Consult (Consult Rx Perform Med Rec) 1 each MISCELLANE ONCE PRN PRN Reason: Consult order Sodium Chloride (0.9 % Sodium Chloride Flush 3 Ml Syringe) 3 ml IVFLUSH QSHIFT [facility] Last Admin: 06/23/21 08:28 Dose: 3 ml Documented by: DARLIN Labs CBC & Chem 7: 06/23/21 05:18 06/23/21 05:18 Labs: Laboratory Results - last 24 hr 06/22/21 06/22/21 06/22/21 11:14 11:33 11:33 MCV 94.5 MCH 32.0 MCHC 33.8 RDW 12.0 Plt Count 200 MPV 11.3 Immature Gran % (Auto) 0.5 H Neut % (Auto) 77.2 H Lymph % (Auto) 11.1 L [place] % (Auto) 11.0 Eos % (Auto) 0.0 Baso % (Auto) 0.2 Lymph # (Auto) 0.7 L [place] # (Auto) 0.7 Eos # (Auto) 0.0 Baso # (Auto) 0.0 Abs Immat Gran (auto) 0.03 Absolute Neuts (auto) 4.9 Absolute Nucleated RBC 0.000 Nucleated RBC % (auto) 0.0 D-Dimer High Sensitivty 161 Anion Gap Estim Creat Clear Calc Estimated GFR POC Glucose Random Glucose Fasting Glucose Lactic Acid Calcium Magnesium Total Bilirubin AST ALT Alkaline Phosphatase Lactate Dehydrogenase Troponin I High Sens C-Reactive Protein B-Natriuretic Peptide Total Protein Albumin COVID-19 (ALLEN) Positive A COVID-19 Clin Com See Note 06/22/21 06/22/21 06/22/21 11:33 11:33 11:35 MCV MCH MCHC RDW Plt Count MPV Immature Gran % (Auto) Neut % (Auto) Lymph % (Auto) [place] % (Auto) Eos % (Auto) Baso % (Auto) Lymph # (Auto) [place] # (Auto) Eos # (Auto) Baso # (Auto) Abs Immat Gran (auto) Absolute Neuts (auto) Absolute Nucleated RBC Nucleated RBC % (auto) D-Dimer High Sensitivty Anion Gap 17 Estim Creat Clear Calc 98.9 Estimated GFR > 60 POC Glucose Random Glucose 193 H Fasting Glucose Lactic Acid 1.4 Calcium 8.8 Magnesium 2.5 Total Bilirubin 0.7 AST 115 H ALT 72 H Alkaline Phosphatase 84 D Lactate Dehydrogenase Troponin I High Sens 10.6 C-Reactive Protein B-Natriuretic Peptide 13 Total Protein 7.5 Albumin 4.0 COVID-19 (ALELN) COVID-19 Clin Com 06/22/21 06/22/21 06/22/21 14:29 17:57 20:52 MCV MCH MCHC RDW Plt Count MPV Immature Gran % (Auto) Neut % (Auto) Lymph % (Auto) [place] % (Auto) Eos % (Auto) Baso % (Auto) Lymph # (Auto) [place] # (Auto) Eos # (Auto) Baso # (Auto) Abs Immat Gran (auto) Absolute Neuts (auto) Absolute Nucleated RBC Nucleated RBC % (auto) D-Dimer High Sensitivty Anion Gap Estim Creat Clear Calc Estimated GFR POC Glucose 135 H 215 H Random Glucose Fasting Glucose Lactic Acid Calcium Magnesium Total Bilirubin AST ALT Alkaline Phosphatase Lactate Dehydrogenase Troponin I High Sens 8.4 C-Reactive Protein B-Natriuretic Peptide Total Protein Albumin COVID-19 (ALLEN) COVID-19 [employer] Com 06/23/21 06/23/21 06/23/21 05:18 05:18 07:34 MCV 95.2 MCH 32.1 MCHC 33.7 RDW 11.9 Plt Count 179 MPV 11.0 Immature Gran % (Auto) Neut % (Auto) Lymph % (Auto) [place] % (Auto) Eos % (Auto) Baso % (Auto) Lymph # (Auto) [place] # (Auto) Eos # (Auto) Baso # (Auto) Abs Immat Gran (auto) Absolute Neuts (auto) Absolute Nucleated RBC 0.000 Nucleated RBC % (auto) 0.0 D-Dimer High Sensitivty Anion Gap 14 Estim Creat Clear Calc 141.1 Estimated GFR > 60 POC Glucose 145 H Random Glucose Fasting Glucose 141 H Lactic Acid Calcium 8.6 Magnesium Total Bilirubin AST ALT Alkaline Phosphatase Lactate Dehydrogenase 220 Troponin I High Sens C-Reactive Protein 3.50 H B-Natriuretic Peptide Total Protein Albumin COVID-19 (ALLEN) COVID-19 Clin Com Assessment and Plan (1) Acute respiratory failure with hypoxia: Status: Acute (2) COVID: Status: Acute Assessment and Plan: 51-year-old male presented with shortness of breath, found to be hypoxic and positive COVID ?acute hypoxic respiratory failure secondary to COVID pneumonia in a high risk patient given morbid obesity, fatty liver, diabetes, sleep apnea, non vaccinated ?wean O2 as tolerated, goal saturation? 90-93% ?Decadron day 2 ?diabetes ?insulin, follow-up point of cares ?fatty liver ?likely alcoholic and nonalcoholic fatty liver ?weight loss, encourage not use alcohol ?liver mass ?outpatient follow-up ?2.6 cm right suprahilar rounded opacity on cxr ?no suspicious mass seen on CT chest ?LIANE/?morbid obesity ?patient does not use any devices ?hypertension ?amlodipine and lisinopril ?hypertriglyceridemia ?started fenofibrate ?DVT prophylaxis -lovenox Quality Stroke Does the patient have a stroke diagnosis?: No VTE Prior VTE?: No VTE Risk Level:: Medical - moderate - high VTE Device Contraindication: Treatment Not Indicated VTE Drug Contraindication: N/A - Med Ordered
[2021-06-23 11:32] LABS: Glucose, Whole Blood 221 mg/dL (60-115)
[2021-06-23] MEDS: Insulin Lispro 100 UNIT/ML 3 ML VIAL SUBCUT ×3 (12:11→20:31)
[2021-06-23] MEDS: Enoxaparin Sodium 40 MG/0.4 ML SYRINGE SUBCUT (14:12)
--- NOTE | 2021-06-23 16:08 | MHC.CM.PN ---
Patient on enhanced precautions r/t Covid-19 infection. Interviewed patient over telephone using [employer]. Lives with his daughter, independent, and no services at home. Assisted patient in completing HCP, he chose his daughter, Amanda as HCP. Gave patient original and copies and placed a copy in the chart. Anticipate no needs on dc. Daughter to drive.
[2021-06-23 16:20] LABS: Glucose, Whole Blood 193 mg/dL (60-115)
[2021-06-23 19:45] LABS: Glucose, Whole Blood 225 mg/dL (60-115)
[2021-06-23] MEDS: Fenofibrate 160 MG TABLET PO (20:31)
[2021-06-23] MEDS: Insulin Glargine,Hum.rec.anlog 100 UNIT/ML 10 ML VIAL 22 UNIT SUBCUT (20:32)
--- NOTE | 2021-06-23 23:45 | PC.NURSE ---
Pt noted to have a 9 beat vtach, pt assessed and stable, asymptomatic. Will continue to monitor.
[2021-06-24 03:25] VITALS: BP 112/74; PULSE 64; RESP 20; TEMP 36.1; O2SAT 93
[2021-06-24 07:00] LABS: Hematocrit 43.8 % (42.0-52.0); Hemoglobin 14.6 g/dl (14.0-18.0); Mean Corpuscular HGB Conc 33.3 g/dl (31.0-36.0); Mean Corpuscular Hemoglobin 31.3 pg (27.0-33.0); Mean Platelet Volume 11.4 fL (9.4-12.4); Platelet Count 224 X10*3/uL (160-400); Red Blood Count 4.66 X10*6/uL (4.60-5.80); Red Cell Distribution Width 11.9 % (11.0-16.0); White Blood Count 6.5 X10*3/uL (4.8-10.8)
[2021-06-24 07:31] LABS: Anion Gap 15 (12-20); Blood Urea Nitrogen 11 mg/dL (9-16); C Reactive Protein 1.14 mg/dL (< or = 0.50); Carbon Dioxide 24 mmol/L (22-29); Chloride 101 mmol/L (96-108); Creatinine Clr Calc Pharmacy 152.4; Estimated Glomerular Filt Rate > 60; Glucose Fasting 193 mg/dL (60-99); Potassium 4.2 mmol/L (3.3-5.1); Sodium 136 mmol/L (135-145)
[2021-06-24 07:39] VITALS: BP 111/73; PULSE 63; RESP 20; TEMP 36.8; O2SAT 95
[2021-06-24 07:57] LABS: Glucose, Whole Blood 206 mg/dL (60-115)
[2021-06-24] MEDS: lisinopriL 10 MG TABLET 30 MG PO (08:32)
[2021-06-24] MEDS: Escitalopram Oxalate 20 MG TABLET PO (08:32)
[2021-06-24] MEDS: amLODIPine Besylate 10 MG TABLET PO (08:32)
[2021-06-24] MEDS: Atorvastatin Calcium 40 MG TABLET PO (08:33)
[2021-06-24] MEDS: dexAMETHasone sod phosphate 4 MG/ML VIAL 6 MG IVPUSH (08:33)
[2021-06-24] MEDS: Insulin Lispro 100 UNIT/ML 3 ML VIAL SUBCUT ×4 (08:33→21:49)
[2021-06-24] MEDS: 0.9 % Sodium Chloride Flush 3 ML SYRINGE IVFLUSH ×3 (08:33→21:50)
[2021-06-24] MEDS: Furosemide 20 MG TABLET PO (08:33)
--- NOTE | 2021-06-24 09:36 | HO.PM.IMPN ---
Subjective Subjective Date of Service: 06/24/21 Interval History: cc: sob interval history: some improvement Cardiovascular Cardiovascular: Reports no additional cardiovascular complaints Genitourinary Genitourinary: Reports no additional male genitourinary complaints Physical Exam Vital Signs: Vital Signs: Last Vital Signs Temp 98.3 F 06/24/21 07:39 Pulse 63 06/24/21 07:39 Resp 20 06/24/21 07:39 BP 111/73 06/24/21 07:39 Pulse Ox 95 06/24/21 07:39 Body Mass Index 30.5 General: AO X 3, no acute distress Resp:? diminished, no accessory muscles used CVS: S1,S2,RRR GI: soft, non tender, non distended Neuro:? motor grossly intact, alert Psych: appropriate affect, appropriate insight? Objective Data Active Medications Acetaminophen (Acetaminophen 325 Mg Tablet) 650 mg PO Q6H PRN PRN Reason: Pain, Mild (Pain Scale 1-3) Amlodipine Besylate (Amlodipine Besylate 10 Mg Tablet) 10 mg PO DAILY [facility]; Protocol Last Admin: 06/24/21 08:32 Dose: 10 mg Documented by: ENEDELIA Atorvastatin Calcium (Atorvastatin Calcium 40 Mg Tablet) 40 mg PO DAILY [facility] Last Admin: 06/24/21 08:33 Dose: 40 mg Documented by: ENEDELIA Dexamethasone Sodium Phosphate (Dexamethasone Sod Phosphate 4 Mg/Ml Vial) 6 mg IVPUSH DAILY [facility] Last Admin: 06/24/21 08:33 Dose: 6 mg Documented by: ENEDELIA Dextrose (Dextrose 50 % 25 Gm/50 Ml Vial) 25 gm IVPUSH Q15M PRN; Protocol PRN Reason: per Hypoglycemia Standing Ord. Enoxaparin Sodium (Enoxaparin Sodium 40 Mg/0.4 Ml Syringe) 40 mg SUBCUT Q24H [facility] Last Admin: 06/23/21 14:12 Dose: 40 mg Documented by: DARLIN Escitalopram Oxalate (Escitalopram Oxalate 20 Mg Tablet) 20 mg PO DAILY [facility] Last Admin: 06/24/21 08:32 Dose: 20 mg Documented by: ENEDELIA Fenofibrate (Fenofibrate 160 Mg Tablet) 160 mg PO BEDTIME [facility] Last Admin: 06/23/21 20:31 Dose: 160 mg Documented by: JL Furosemide (Furosemide 20 Mg Tablet) 20 mg PO DAILY [facility]; Protocol Last Admin: 06/24/21 08:33 Dose: 20 mg Documented by: ENEDELIA Glucose (Glucose Gel 15 Gm Gel..Gram.) 15 gm PO Q15M PRN; Protocol PRN Reason: per Hypoglycemia Standing Ord. Insulin Glargine (Insulin Glargine,Hum.Rec.Anlog 100 Unit/Ml 10 Ml Vial) 22 unit SUBCUT BEDTIME [facility] Last Admin: 06/23/21 20:32 Dose: 22 unit Documented by: JL Insulin Human Lispro (Insulin Lispro 100 Unit/Ml 3 Ml Vial) 0 unit SUBCUT QIDACHS [facility]; Protocol Last Admin: 06/24/21 08:33 Dose: 6 unit Documented by: ENEDELIA Lisinopril (Lisinopril 10 Mg Tablet) 30 mg PO DAILY [facility]; Protocol Last Admin: 06/24/21 08:32 Dose: 30 mg Documented by: ENEDELIA Pharmacy Consult (Consult Rx Perform Med Rec) 1 each MISCELLANE ONCE PRN PRN Reason: Consult order Sodium Chloride (0.9 % Sodium Chloride Flush 3 Ml Syringe) 3 ml IVFLUSH QSHIFT [facility] Last Admin: 06/24/21 08:33 Dose: 3 ml Documented by: ENEDELIA Labs CBC & Chem 7: 06/24/21 06:32 06/24/21 06:32 Labs: Laboratory Results - last 24 hr 06/23/21 06/23/21 06/23/21 11:12 16:12 19:39 MCV MCH MCHC RDW Plt Count MPV Absolute Nucleated RBC Nucleated RBC % (auto) Anion Gap Estim Creat Clear Calc Estimated GFR POC Glucose 221 H 193 H 225 H Fasting Glucose Calcium C-Reactive Protein 06/24/21 06/24/21 06/24/21 06:32 06:32 07:38 MCV 94.0 MCH 31.3 MCHC 33.3 RDW 11.9 Plt Count 224 D MPV 11.4 Absolute Nucleated RBC 0.000 Nucleated RBC % (auto) 0.0 Anion Gap 15 Estim Creat Clear Calc 152.4 Estimated GFR > 60 POC Glucose 206 H Fasting Glucose 193 H D Calcium 9.0 C-Reactive Protein 1.14 H Microbiology Microbiology Results: Microbiology 06/22/21 12:13 Blood Culture - Preliminary Blood - Venous No growth after 24 hours. 11/26/21 11:37 Blood Culture - Preliminary Blood - Venous No growth after 24 hours. Assessment and Plan (1) Acute respiratory failure with hypoxia: Status: Acute (2) COVID: Status: Acute Assessment and Plan: 51-year-old male presented with shortness of breath, found to be hypoxic and positive COVID ?acute hypoxic respiratory failure secondary to COVID pneumonia in a high risk patient given morbid obesity, fatty liver, diabetes, sleep apnea, non vaccinated ?wean O2 as tolerated, goal saturation? 90-93% ?Decadron day 3 monitor inflammatory markers, so far improving ?diabetes ?insulin, follow-up point of cares ?fatty liver ?likely alcoholic and nonalcoholic fatty liver ?weight loss, encourage not use alcohol ?liver mass ?outpatient follow-up ?2.6 cm right suprahilar rounded opacity on cxr ?no suspicious mass seen on CT chest ?LIANE/?morbid obesity ?patient does not use any devices ?hypertension ?amlodipine and lisinopril ?hypertriglyceridemia ?started fenofibrate ?DVT prophylaxis -lovenox Quality Stroke Does the patient have a stroke diagnosis?: No VTE Prior VTE?: No VTE Risk Level:: Medical - moderate - high VTE Device Contraindication: Treatment Not Indicated VTE Drug Contraindication: N/A - Med Ordered
[2021-06-24 11:33] VITALS: BP 104/67; PULSE 69; RESP 18; TEMP 36.6; O2SAT 94
[2021-06-24 11:52] LABS: Glucose, Whole Blood 244 mg/dL (60-115)
[2021-06-24 16:00] VITALS: BP 115/71; PULSE 66; RESP 19; TEMP 36.6; O2SAT 96
[2021-06-24 16:39] LABS: Glucose, Whole Blood 214 mg/dL (60-115)
[2021-06-24] MEDS: Enoxaparin Sodium 40 MG/0.4 ML SYRINGE SUBCUT (17:23)
[2021-06-24 19:33] VITALS: BP 107/80; PULSE 64; RESP 16; TEMP 36.6; O2SAT 96
[2021-06-24 20:37] LABS: Glucose, Whole Blood 236 mg/dL (60-115)
[2021-06-24] MEDS: Insulin Glargine,Hum.rec.anlog 100 UNIT/ML 10 ML VIAL 22 UNIT SUBCUT (21:48)
[2021-06-24] MEDS: Fenofibrate 160 MG TABLET PO (21:48)
[2021-06-25] VITALS: BP 106/70; PULSE 65; RESP 18; TEMP 36.4; O2SAT 96
[2021-06-25 03:24] VITALS: BP 118/74; PULSE 56; RESP 17; TEMP 36.4; O2SAT 94
[2021-06-25 06:08] LABS: Hematocrit 45.8 % (42.0-52.0); Hemoglobin 14.8 g/dl (14.0-18.0); Mean Corpuscular HGB Conc 32.3 g/dl (31.0-36.0); Mean Corpuscular Hemoglobin 30.3 pg (27.0-33.0); Mean Corpuscular Volume 93.7 fL (80.0-98.0); Mean Platelet Volume 11.3 fL (9.4-12.4); Platelet Count 243 X10*3/uL (160-400); Red Blood Count 4.89 X10*6/uL (4.60-5.80); Red Cell Distribution Width 11.7 % (11.0-16.0); White Blood Count 6.3 X10*3/uL (4.8-10.8)
[2021-06-25 06:19] LABS: D Dimer High Sensitivity < 150 NG/ML
[2021-06-25 06:39] LABS: Anion Gap 13 (12-20); Blood Urea Nitrogen 14 mg/dL (9-16); C Reactive Protein 0.48 mg/dL (< or = 0.50); Calcium 8.9 mg/dL (8.4-10.2); Carbon Dioxide 26 mmol/L (22-29); Chloride 101 mmol/L (96-108); Creatinine Clr Calc Pharmacy 152.4; Estimated Glomerular Filt Rate > 60; Glucose Fasting 146 mg/dL (60-99); Lactate Dehydrogenase 217 U/L (118-273); Potassium 4.1 mmol/L (3.3-5.1); Sodium 136 mmol/L (135-145)
[2021-06-25 07:29] VITALS: BP 125/72; PULSE 55; RESP 18; TEMP 36.9; O2SAT 95
[2021-06-25 07:56] LABS: Glucose, Whole Blood 140 mg/dL (60-115)
--- NOTE | 2021-06-25 10:06 | PM.DS ---
DS: Providers Provider Date of Service: 06/25/21 Date of admission: 06/22/21 14:35 Primary care physician: Karyn Myers MD DS: Diagnosis Discharge Diagnosis (1) Acute respiratory failure with hypoxia: Status: Acute (2) COVID: Status: Acute DS: Summary Hospital Course Hospital Course: Patient was admitted for acute hypoxic respiratory failure secondary to COVID. He was treated with dexamethasone and had noted improvement over the next few days with decrease in inflammatory markers and being able to be weaned off of oxygen. He was noted to have hypertriglyceridemia and was started on fenofibrate. He will continue dexamethasone for 7 more days as outpatient. He was noted to have a 2.6 cm right suprahilar rounded opacity on chest x-ray, however on CT chest this was not seen. He does have a known liver mass which is under investigation. Patient is feeling much better will be discharged home. He is instructed to keep isolation until at least 10 days from symptom onset and 24 hours fever free. Time Spent with Patient Time attestation: Total time spent providing and/or coordinating discharge services: Discharge coordination time: Greater than 30 minutes Quality: Stroke Does the patient have a stroke diagnosis?: No Physical Exam Vital Signs: Vital Signs: Last Vital Signs Temp 98.5 F 06/25/21 07:29 Pulse 55 06/25/21 07:29 Resp 18 06/25/21 07:29 BP 125/72 06/25/21 07:29 Pulse Ox 95 06/25/21 07:29 Body Mass Index 30.5 General: AO X 3, no acute distress Resp: CTA bilateral, no accessory muscles used CVS: S1,S2,RRR GI: soft, non tender, non distended Neuro: motor grossly intact, alert Psych: appropriate affect, appropriate insight DS: Data Data Completed and Pending Labs on day of discharge: Laboratory Results - last 24 hr 06/24/21 06/24/21 06/24/21 11:32 16:24 20:29 WBC RBC Hgb Hct MCV MCH MCHC RDW Plt Count MPV Absolute Nucleated RBC Nucleated RBC % (auto) D-Dimer High Sensitivty Sodium Potassium Chloride Carbon Dioxide Anion Gap BUN Creatinine Estim Creat Clear Calc Estimated GFR POC Glucose 244 H 214 H 236 H Fasting Glucose Calcium Lactate Dehydrogenase C-Reactive Protein 06/25/21 06/25/21 06/25/21 05:46 05:46 05:46 WBC 6.3 RBC 4.89 Hgb 14.8 Hct 45.8 MCV 93.7 MCH 30.3 MCHC 32.3 RDW 11.7 Plt Count 243 MPV 11.3 Absolute Nucleated RBC 0.000 Nucleated RBC % (auto) 0.0 D-Dimer High Sensitivty < 150 Sodium 136 Potassium 4.1 Chloride 101 Carbon Dioxide 26 Anion Gap 13 BUN 14 Creatinine 0.75 Estim Creat Clear Calc 152.4 Estimated GFR > 60 POC Glucose Fasting Glucose 146 H Calcium 8.9 Lactate Dehydrogenase 217 C-Reactive Protein 0.48 06/25/21 07:29 WBC RBC Hgb Hct MCV MCH MCHC RDW Plt Count MPV Absolute Nucleated RBC Nucleated RBC % (auto) D-Dimer High Sensitivty Sodium Potassium Chloride Carbon Dioxide Anion Gap BUN Creatinine Estim Creat Clear Calc Estimated GFR POC Glucose 140 H Fasting Glucose Calcium Lactate Dehydrogenase C-Reactive Protein Preliminary micro results at discharge 06/22/21 12:13 Blood Culture - Preliminary Blood - Venous No growth after 48 hours. 06/22/21 11:37 Blood Culture - Preliminary Blood - Venous No growth after 48 hours. Discharge Plan Discharge Patient Disposition: Home, Self-Care Discharge Diagnosis: covid Referrals: Karyn Myers MD [Primary Care Provider] - 1 Week Discharge Medications: New fenofibrate 160 mg Tablet 160 mg PO BEDTIME Qty: 30 RF: 0 dexamethasone 6 mg tablet 6 mg PO DAILY Qty: 7 RF: 0 Continued lorazepam 1 mg Tablet 1 mg PO BID PRN (Reason: Anxiety) RF: 0 escitalopram oxalate 20 mg Tablet 20 mg PO DAILY RF: 0 atorvastatin 40 mg Tablet 40 mg PO DAILY RF: 0 furosemide 20 mg Tablet 20 mg PO DAILY RF: 0 glipizide 5 mg Tablet 5 mg PO BIDAC RF: 0 Lantus Solostar U-100 Insulin 100 unit/mL (3 mL) Insulin Pen 22 unit SUBCUT BEDTIME RF: 0 psyllium husk [Reguloid (psyllium husk)] 0.4 gram Capsule 0.4 g PO DAILY RF: 0 lisinopril 30 mg tablet 30 mg PO DAILY RF: 0 melatonin 5 mg tablet 10 mg PO BEDTIME PRN (Reason: Insomnia) RF: 0 Jardiance 10 mg tablet 10 mg PO DAILY RF: 0 amlodipine 10 mg tablet 10 mg PO DAILY Qty: 60 RF: 3 Diet: advance to usual diet Activity on Discharge: As tolerated Stand Alone Forms: Patient Portal Discharge page Care Plan Goals: reocvery Health Concerns: covid Plan of Treatment: keep isolated atleast 10 days from symptom onset and 24hrs fever free Assessment: see above
[2021-06-25] MEDS: dexAMETHasone sod phosphate 4 MG/ML VIAL 6 MG IVPUSH (10:45)
[2021-06-25 10:46] VITALS: BP 125/72; PULSE 66
[2021-06-25] MEDS: 0.9 % Sodium Chloride Flush 3 ML SYRINGE IVFLUSH (10:46)
[2021-06-25] MEDS: amLODIPine Besylate 10 MG TABLET PO (10:46)
[2021-06-25] MEDS: Escitalopram Oxalate 20 MG TABLET PO (10:46)
[2021-06-25] MEDS: lisinopriL 10 MG TABLET 30 MG PO (10:46)
[2021-06-25] MEDS: Atorvastatin Calcium 40 MG TABLET PO (10:46)
[2021-06-25] MEDS: Furosemide 20 MG TABLET PO (10:47)
[2021-06-25 10:55] VITALS: O2SAT 91
[2021-06-25 10:59] VITALS: BP 129/77; PULSE 61; RESP 18; TEMP 36.4; O2SAT 93
[2021-06-25 11:20] LABS: Glucose, Whole Blood 239 mg/dL (60-115)
--- NOTE | 2021-06-25 11:27 | MHC.CM.PN ---
Patient has been medically cleared for dc to home today, no services.
[2021-06-25] MEDS: Insulin Lispro 100 UNIT/ML 3 ML VIAL SUBCUT (12:00)
== END 2021-06-25 16:55 | disposition home or self-care (01) | DRG 137 ==
LOC: HO.ED 13:04 → HO.EDOVER 14:56 → HO.IMC 22:54
PROVIDERS: Physician Assistant; Admitting Provider Internal Medicine; Emergency Provider Emergency Medicine; PCP Internal Medicine; Visit Provider Internal Medicine
DX: U07.1 COVID-19 (principal); J96.01 Acute respiratory failure with hypoxia; Z68.30 Body mass index [BMI] 30.0-30.9, adult; E66.01 Morbid (severe) obesity due to excess calories; E78.1 Pure hyperglyceridemia; K76.0 Fatty (change of) liver, not elsewhere classified; G47.33 Obstructive sleep apnea (adult) (pediatric); R91.1 Solitary pulmonary nodule; K76.9 Liver disease, unspecified; I10 Essential (primary) hypertension; E11.9 Type 2 diabetes mellitus without complications; G89.29 Other chronic pain; M54.9 Dorsalgia, unspecified; Z79.4 Long term (current) use of insulin; Z79.899 Other long term (current) drug therapy
CPT/HCPCS: 36415; 71045; 71250; 80048; 80053; 82947; 83605; 83615; 83735; 83880; 84484; 85025; 85027; 85379; 86140; 87040; 87635; 93005; 99285; J1100; J1650

== ENCOUNTER 2021-07-02 10:47 | Outpatient (REF) | payer MEDICAID, SELFPAY ==
[2021-07-02 11:56] LABS: COVID-19 Test Negative (Negative)
== END 2021-07-02 10:48 | disposition home or self-care (01) ==
LOC: HO.LAB 10:47
PROVIDERS: Visit Provider Internal Medicine
DX: Z20.822 Contact with and (suspected) exposure to COVID-19 (principal)
CPT/HCPCS: 36415; 87635; C9803

== ENCOUNTER 2021-07-25 09:53 | Outpatient (REF) | payer MEDICAID, SELFPAY ==
[2021-07-25 10:44] LABS: Hematocrit 44.9 % (42.0-52.0); Hemoglobin 14.9 g/dl (14.0-18.0); Mean Corpuscular HGB Conc 33.2 g/dl (31.0-36.0); Mean Corpuscular Hemoglobin 30.9 pg (27.0-33.0); Mean Corpuscular Volume 93.2 fL (80.0-98.0); Mean Platelet Volume 11.7 fL (9.4-12.4); Platelet Count 178 X10*3/uL (160-400); Red Blood Count 4.82 X10*6/uL (4.60-5.80); White Blood Count 6.1 X10*3/uL (4.8-10.8)
[2021-07-25 11:12] LABS: Alanine Aminotransferase 43 U/L (0-40); Albumin Level 4.2 g/dL (3.5-5.0); Alkaline Phosphatase 70 U/L (39-117); Anion Gap 11 (12-20); Aspartate Amino Transferase 39 U/L (5-37); Bilirubin Total 0.9 mg/dL (0.0-1.0); Blood Urea Nitrogen 8 mg/dL (9-16); Calcium 9.4 mg/dL (8.4-10.2); Carbon Dioxide 28 mmol/L (22-29); Chloride 102 mmol/L (96-108); Estimated Glomerular Filt Rate > 60; Glucose Random 176 mg/dL (60-115); Potassium 4.2 mmol/L (3.3-5.1); Sodium 137 mmol/L (135-145); Total Protein 7.4 g/dL (6.5-8.0)
== END 2021-07-25 09:54 | disposition home or self-care (01) ==
LOC: HO.LAB 09:53
PROVIDERS: PCP Internal Medicine; Visit Provider Nurse Practitioner Family
DX: Z12.11 Encounter for screening for malignant neoplasm of colon (principal)
CPT/HCPCS: 36415; 80053; 85027

== ENCOUNTER → 2021-07-26 10:46 | Day surgery (SDC) | payer MEDICAID, SELFPAY ==
--- NOTE | 2021-07-25 09:18 | HO.ANESPROP2 ---
HPI - Anesthesia Eval Consult details Narrative: 51yo M for Bilateral L3-L4-L5 Medial Branch Radiofrequency AB PMFSH Active Problems Active Problems: All Active Problems (Updated 06/22/21 @ 14:40 by Ye Manley MD) Acute respiratory failure with hypoxia (Acute) Diabetes (Acute) Liver mass (Acute) COVID (Acute) Essential hypertension (Acute) LIANE (obstructive sleep apnea) (Acute) Morbid obesity (Acute) Past Medical History Medical History Arthritis Blind left eye Chronic back pain Diabetes High cholesterol HTN (hypertension) Left knee pain Lumbar back pain with radiculopathy affecting lower extremity Morbid obesity Osteoarthritis of left knee Sacroiliitis Sleep apnea Family History Family History Mother Intestinal cancer Brother Narcolepsy Surgical History Surgical History History of hernia surgery History of testicular surgery S/P nasal surgery Social History Social History Household Members: Children Housing: Apartment Do you presently have visiting nurse or other home services: No Alcohol intake: current Alcohol intake frequency: a few times a week Alcohol type: beer and hard liquor Patient Tobacco Use Status: Never used Tobacco e-Cigarette/Vaping Use: Never Used Second Hand Smoke Exposure: No service: No Current occupational status: unemployed Current occupation: left handed Meds Allergies Allergy/AdvReac Type Severity Reaction Status Date / Time No Known Allergies Allergy Verified 06/07/21 13:24 Home Medications Medication Instructions Recorded Confirmed Last Taken Type empagliflozin 10 mg tablet 10 mg PO DAILY 08/29/20 06/22/21 Unknown History (Jardiance) lisinopril 30 mg tablet 30 mg PO DAILY 08/29/20 06/22/21 Unknown History melatonin 5 mg tablet 10 mg PO BEDTIME PRN 08/29/20 06/22/21 Unknown History atorvastatin 40 mg tablet 40 mg PO DAILY 06/22/21 06/22/21 Unknown History escitalopram oxalate 20 mg tablet 20 mg PO DAILY 06/22/21 06/22/21 06/22/21 History furosemide 20 mg tablet 20 mg PO DAILY 06/22/21 06/22/21 Unknown History glipizide 5 mg tablet 5 mg PO BIDAC 06/22/21 06/22/21 Unknown History insulin glargine 100 unit/mL (3 22 unit SUBCUT BEDTIME 06/22/21 06/22/21 06/21/21 History mL) subcutaneous pen (Lantus Solostar U-100 Insulin) lorazepam 1 mg tablet 1 mg PO BID PRN 06/22/21 06/22/21 Unknown History psyllium husk 0.4 gram capsule 0.4 g PO DAILY 06/22/21 06/22/21 Unknown History (Reguloid (psyllium husk)) Exam Exam Date and Time: July 25, 2021 0918 Pertinent Lab Results Pertinent Lab Results: Laboratory Tests 06/25/21 06/25/21 05:46 05:46 WBC 6.3 Hgb 14.8 Hct 45.8 Plt Count 243 Sodium 136 Potassium 4.1 Chloride 101 Carbon Dioxide 26 BUN 14 Creatinine 0.75 Assessment and Plan Assessment Anesthesia Assessment: Chart Reviewed
--- NOTE | 2021-07-26 11:54 | MHC.SHP ---
Pre-Procedural Eval Section A Date of Service: 07/26/21 The patient is an INPATIENT: No Changes since office visit: Yes Patient answered all questions The History & Physical has been completed within 30 days and I have reviewed it.: No Section B Chief Complaint: Spondylosis of Lumbosacral spine w/o myopathy Details of Present Illness: spondylosis lumbar spine without myelopathy and / or radiculopathy Relevant Family History (Specify if Yes): No Relevant Social History: None Present Medications: see Short Stay Collaborative assessment Medical History: No relevant PMH History of Previous Operations: No relevant previous surgery Allergies: Allergies Allergy/AdvReac Type Severity Reaction Status Date / Time No Known Allergies Allergy Verified 07/25/21 09:28 Review of Systems Sugical H&P ROS: Negative: Constitution, Cardiovascular, Respiratory, Neurological, Psychiatric, Hem-Onc, Allergic/Immunologic, Gastrointestinal, Genitourinary, Musculoskeletal, Integumentary, Endocrine and Eyes/Ears/Nose/Throat Exam Surgical H&P Exam: Normal: HEENT, Normal: Heart, Normal: Lungs, Normal: Extremities, Normal: Abdomen, Normal: Skin and Normal: Neurological Plan Diagnosis/Plan: Unchanged I have reviewed the history and physical and performed a pertinent physical examination on my patient. No changes have occurred unless specified.
[2021-07-26 12:06] VITALS: BMI 27.3
[2021-07-26 12:14] LABS: Glucose, Whole Blood 152 mg/dL (60-115)
[2021-07-26 12:29] VITALS: BP 120/78; PULSE 99; RESP 16; TEMP 36.9; O2SAT 96
[2021-07-26] MEDS: Lactated Ringers 1,000 ML 100 ML IVCONT (12:31)
--- NOTE | 2021-07-26 12:50 | MHC.SHP ---
Pre-Procedural Eval Section A Date of Service: 07/26/21 The patient is an INPATIENT: No Changes since office visit: Yes New Medical Problems The History & Physical has been completed within 30 days and I have reviewed it.: No Section B Chief Complaint: Spondylosis of Lumbosacral spine w/o myopathy Details of Present Illness: spondylosis of lumbar sacral spine without myelopathy or radiculopathy, Pararectal abscess Relevant Family History (Specify if Yes): No Relevant Social History: None Present Medications: None Medical History: Significant History ( morbid obesity diabetes) History of Previous Operations: Relevant previous surgery/procedure and date(s) ( after careful conversation with lithographic photographer the patient at tracted it my attention to the presence of para -rectal abscess. He reports that he had a surgery for this abscesses 1 year ago, he reports that from time to time he feels swelling in the projection of the para rectal area. Last sweling ) Allergies: Allergies Allergy/AdvReac Type Severity Reaction Status Date / Time No Known Allergies Allergy Verified 07/26/21 11:59 Review of Systems Sugical H&P ROS: Negative: Cardiovascular, Respiratory, Neurological, Psychiatric, Hem-Onc, Allergic/Immunologic, Genitourinary, Integumentary and Eyes/Ears/Nose/Throat and Yes, Specify: Constitution ( Morbid obesity), Gastrointestinal ( chronic para rectal abscess), Musculoskeletal ( spondylosis lumbar sacral spine) and Endocrine ( diabetes mellitus) Exam Surgical H&P Exam: Normal: HEENT, Normal: Heart, Normal: Lungs, Normal: Extremities, Normal: Skin and Normal: Neurological and Significant Findings: Abdomen ( on physical exam of para rectal area there is minimalswelling and skin induration.) Plan Diagnosis/Plan: Change ( In the presence of perirectal abscess) in the presence of curtis rectal abscess of unknown status and without input of the surgeon who is affiliated with [facility] I do not think that performing today's procedure is right thing to do for the patient. We discussed situation with the patient. Explained to him that I need information from [facility] about the status of his chronic para rectal abscess. we will reschedule procedure for the other day after information about perirectal abscess will be obtained.
== END ==
PROVIDERS: PCP Internal Medicine; Visit Provider Anesthesiology
DX: M47.817 Spondylosis without myelopathy or radiculopathy, lumbosacral region (principal); Z53.09 Procedure and treatment not carried out because of other contraindication; K60.3 Anal fistula; R21 Rash and other nonspecific skin eruption; E11.9 Type 2 diabetes mellitus without complications
CPT/HCPCS: 82947; J3300; Q9967

== ENCOUNTER 2021-07-31 08:51 | Outpatient (REF) | payer MEDICAID, SELFPAY ==
--- NOTE | ~2021-07-31 | CT_ITS ---
EXAMINATION: CT ABDOMEN AND PELVIS WITH CONTRAST CLINICAL INFORMATION: Liver lesion COMPARISON: Previous CT of the abdomen and pelvis May 2021 and abdominal ultrasound April 2021 TECHNIQUE: Multidetector volumetric images were obtained from the superior aspect of the liver through the pubic symphysis following administration 85 mL of Omnipaque 350 intravenous contrast. Sagittal and coronal reformatted images were obtained on the technologist's workstation. Oral contrast: Yes This CT examination was performed using dose optimization techniques as appropriate, variously including the following: *Automated exposure control *Adjustment of mA and/or kV according to patient size (this includes techniques or standardized protocols for targeted exams where dose is matched to indication/reason for exam; i.e. extremities or head) *Use of iterative reconstruction technique DLP: 857 mGy-cm FINDINGS: LUNG BASES: There is interval decrease in the bilateral lower lobe infiltrates compared to May 2021 exam. LIVER, GALLBLADDER, AND BILIARY TREE: There is a 2 cm enhancing lesion in the peripheral medial segment of the left lobe axial image 33 series 3. This is unchanged from previous exam May 2021. Liver is normal in size and contour. No other focal liver lesion is seen. The gallbladder is normal. There is no biliary duct dilatation. PANCREAS: Unremarkable. SPLEEN: The spleen is slightly enlarged and measures 14 cm in length. ADRENAL GLANDS: Unremarkable. KIDNEYS AND URETERS: The kidneys are normal in size, shape, and attenuation. No hydronephrosis, hydroureter, or calculi seen. No perinephric stranding. BLADDER: Unremarkable. GASTROINTESTINAL TRACT: The small and large bowel are unremarkable. The appendix is unremarkable. ABDOMINAL WALL: There is a small umbilical hernia containing fat. LYMPH NODES: There are small periportal and retroperitoneal lymph nodes. No enlarged lymph nodes are seen. There is no ascites. VASCULAR: Unremarkable. PELVIC VISCERA: Unremarkable. OSSEOUS STRUCTURES: There are degenerative changes of the spine. CT/CT abdomen pelvis w con IMPRESSION: Stable solitary liver lesion. Further characterization with liver MRI recommended. Slightly enlarged spleen. Interval decrease in bibasilar pulmonary infiltrates from May 2021 exam. Fleischner guidelines were followed.
[2021-07-31] MEDS: iohexoL 350 MG/ML 100 ML INFUS..BTL IV (11:22)
== END 2021-07-31 08:52 | disposition home or self-care (01) ==
LOC: HO.CT 08:51
PROVIDERS: Visit Provider Internal Medicine
DX: R16.0 Hepatomegaly, not elsewhere classified (principal)
CPT/HCPCS: 74177; Q9967

== ENCOUNTER → 2021-08-08 11:21 | Outpatient (BNVA) | payer MEDICAID, SELFPAY | PROVIDERS: PCP Internal Medicine; Visit Provider Internal Medicine Pulmonary Disease | DX: G47.33 Obstructive sleep apnea (adult) (pediatric) (principal); G47.34 Idiopathic sleep related nonobstructive alveolar hypoventilation | CPT/HCPCS: 99212 ==

== ENCOUNTER → 2021-08-20 15:59 | Outpatient (BNVA) | payer MEDICAID, SELFPAY | PROVIDERS: PCP Internal Medicine; Visit Provider Anesthesiology | DX: M47.817 Spondylosis without myelopathy or radiculopathy, lumbosacral region (principal); M46.1 Sacroiliitis, not elsewhere classified; E66.01 Morbid (severe) obesity due to excess calories | CPT/HCPCS: 99212 ==

== ENCOUNTER 2021-08-23 09:26 | Outpatient (REF) | payer MEDICAID, SELFPAY ==
[2021-08-23 11:36] LABS: Hemoglobin 14.8 g/dl (14.0-18.0); Mean Corpuscular HGB Conc 32.9 g/dl (31.0-36.0); Mean Corpuscular Volume 91.3 fL (80.0-98.0); Mean Platelet Volume 12.3 fL (9.4-12.4); Platelet Count 197 X10*3/uL (160-400); Red Blood Count 4.93 X10*6/uL (4.60-5.80); Red Cell Distribution Width 13.3 % (11.0-16.0); White Blood Count 5.8 X10*3/uL (4.8-10.8)
[2021-08-23 11:42] LABS: INTERNATIONAL NORM RATIO 1.1 (0.9-1.1); Prothrombin Time 12.2 SEC (9.9-13.0)
[2021-08-23 11:57] LABS: Anion Gap 16 (12-20); Blood Urea Nitrogen 13 mg/dL (9-16); Calcium 9.6 mg/dL (8.4-10.2); Carbon Dioxide 24 mmol/L (22-29); Chloride 102 mmol/L (96-108); Estimated Glomerular Filt Rate > 60; Glucose Random 200 mg/dL (60-115); Potassium 4.8 mmol/L (3.3-5.1); Sodium 137 mmol/L (135-145)
[2021-08-23 12:24] LABS: TSH reflex Free T4 1.52 uIU/mL (0.32-4.0)
== END 2021-08-23 09:27 | disposition home or self-care (01) ==
LOC: HO.LAB 09:26
PROVIDERS: PCP Internal Medicine; Referring Provider Internal Medicine; Visit Provider Internal Medicine Cardiovascular Disease
DX: R07.9 Chest pain, unspecified (principal); R00.0 Tachycardia, unspecified; I10 Essential (primary) hypertension; R94.39 Abnormal result of other cardiovascular function study
CPT/HCPCS: 36415; 80048; 84443; 85027; 85610; 93005; 99212

== ENCOUNTER 2021-08-28 09:02 | Day surgery (SDC) | payer MEDICAID, SELFPAY ==
--- NOTE | 2021-08-27 11:57 | P.CONAN_ITS ---
Documented by User: Hanny Kyle NP 08/27/21 12:07 HPI - Anesthesia Eval Consult details Narrative: 51yo M for Upper Endoscopy and Colonoscopy Recent Cardiology f/u after testing: He was sent for echocardiography which was unremarkable.? He also underwent stress testing where he developed shortness of breath and stopped after exercising for 4 minutes and 17 seconds achieving 6.1 metabolic equivalents on treadmill.? No ischemic changes were noticed.? His breathing improved in recovery. Pt being sent for diagnostic cath. Per T/C with NASRIN Garcia to proceed with GI tests prior to cath. [facility] Active Problems Active Problems: All Active Problems (Updated 08/23/21 @ 10:17 by Drew Lindsey MD) Sinus tachycardia (Acute) Equivocal stress test (Acute) Chest pain (Acute) Nocturnal hypoxemia (Acute) Acute respiratory failure with hypoxia (Acute) Diabetes (Acute) Liver mass (Acute) COVID (Acute) Essential hypertension (Acute) LIANE (obstructive sleep apnea) (Acute) Morbid obesity (Acute) Past Medical History Medical History Arthritis Blind left eye Chronic back pain Diabetes High cholesterol HTN (hypertension) Left knee pain Lumbar back pain with radiculopathy affecting lower extremity Morbid obesity Osteoarthritis of left knee Sacroiliitis Sleep apnea Family History Family History Mother Intestinal cancer Brother Narcolepsy Surgical History Surgical History History of hernia surgery History of testicular surgery S/P nasal surgery Social History Social History Household Members: Children Housing: Apartment Do you presently have visiting nurse or other home services: No Alcohol intake: current Alcohol intake frequency: a few times a month Alcohol type: beer and hard liquor Patient Tobacco Use Status: Never used Tobacco e-Cigarette/Vaping Use: Never Used Second Hand Smoke Exposure: No service: No Current occupational status: unemployed Current occupation: left handed Meds Allergies Allergy/AdvReac Type Severity Reaction Status Date / Time No Known Allergies Allergy Verified 08/23/21 09:51 Home Medications Medication Instructions Recorded Confirmed Last Taken Type lisinopril 30 30 mg PO DAILY 08/29/20 08/23/21 Unknown History mg tablet melatonin 5 mg 10 mg PO 08/29/20 08/23/21 Unknown History tablet BEDTIME PRN atorvastatin 40 40 mg PO DAILY 06/22/21 08/23/21 Unknown History mg tablet escitalopram 20 mg PO DAILY 06/22/21 08/23/21 06/22/21 History oxalate 20 mg tablet furosemide 20 20 mg PO DAILY 06/22/21 08/23/21 Unknown History mg tablet glipizide 5 mg 5 mg PO BIDAC 06/22/21 08/23/21 Unknown History tablet insulin 22 unit SUBCUT 06/22/21 08/23/21 07/25/21 20:00 History glargine 100 BEDTIME unit/mL (3 mL) 22 units subcutaneous pen (Lantus Solostar U-100 Insulin) lorazepam 1 mg 1 mg PO BID PRN 06/22/21 08/23/21 Unknown History tablet psyllium husk 0.4 g PO DAILY 06/22/21 08/23/21 Unknown History 0.4 gram capsule (Reguloid (psyllium husk)) empagliflozin 25 mg PO QAM 08/23/21 08/23/21 08/28/21 History 25 mg tablet (Jardiance) Exam Exam Date and Time: August 27, 2021 1157 Pertinent Lab Results Pertinent Lab Results: Laboratory Tests 08/23/21 08/23/21 10:52 10:52 WBC 5.8 Hgb 14.8 Hct 45.0 Plt Count 197 Sodium 137 Potassium 4.8 Chloride 102 Carbon Dioxide 24 BUN 13 D Creatinine 0.87 Narrative Narrative: EKG 07/2021 Sinus tachycardia 105 beats per minute, right bundle-branch block, normal axis, QT interval 481 milliseconds. ECHO 03/2021 Conclusions: - Normal left ventricular size and systolic function.? - Diastolic function is normal for age.? - Normal right ventricular cavity size and systolic function.? ? - No significant valvular or pericardial pathology.? ?? Exercise Stress 03/2021 Protocol: TEE ? Max HR: 153 BPM? 90% of? Pred: 170 BPM Max BP: 142/080 mmHG Max Work Load: 6.1 METS ? Exercise stress test with exercise 4 min 17 sec of Tee protocol? achieving 90% ?MPHR, and request to stop, with moderate shortness of breath and fatigue, no ?chest discomfort, with isolated PVC, with normotensive response to exercise, ?without EKG changes meeting criteria for ischemia. In recovery his breathing ?returned to baseline normal. Test reviewed with Dr Murcia. Assessment and Plan Assessment Anesthesia Assessment: Chart Reviewed Documented by User: Leroy Tarango MD 08/28/21 14:31 [facility] Past Medical History Medical History Arthritis Blind left eye Chronic back pain Diabetes High cholesterol HTN (hypertension) Left knee pain Lumbar back pain with radiculopathy affecting lower extremity Morbid obesity Osteoarthritis of left knee Sacroiliitis Sleep apnea Family History Family History Mother Intestinal cancer Brother Narcolepsy Family history of problems with anesthesia: No Surgical History Surgical History History of hernia surgery History of testicular surgery S/P nasal surgery History of Problems with Anesthesia: No Social History Social History Household Members: Children Housing: Apartment Do you presently have visiting nurse or other home services: No Alcohol intake: current Alcohol intake frequency: a few times a month Alcohol type: beer and hard liquor Patient Tobacco Use Status: Never used Tobacco e-Cigarette/Vaping Use: Never Used Second Hand Smoke Exposure: No service: No Current occupational status: unemployed Current occupation: left handed Meds Allergies Allergy/AdvReac Type Severity Reaction Status Date / Time No Known Allergies Allergy Verified 08/23/21 09:51 Home Medications Medication Instructions Recorded Confirmed Last Taken Type lisinopril 30 30 mg PO DAILY 08/29/20 08/23/21 Unknown History mg tablet melatonin 5 mg 10 mg PO 08/29/20 08/23/21 Unknown History tablet BEDTIME PRN atorvastatin 40 40 mg PO DAILY 06/22/21 08/23/21 Unknown History mg tablet escitalopram 20 mg PO DAILY 06/22/21 08/23/21 06/22/21 History oxalate 20 mg tablet furosemide 20 20 mg PO DAILY 06/22/21 08/23/21 Unknown History mg tablet glipizide 5 mg 5 mg PO BIDAC 06/22/21 08/23/21 Unknown History tablet insulin 22 unit SUBCUT 06/22/21 08/23/21 07/25/21 20:00 History glargine 100 BEDTIME unit/mL (3 mL) 22 units subcutaneous pen (Lantus Solostar U-100 Insulin) lorazepam 1 mg 1 mg PO BID PRN 06/22/21 08/23/21 Unknown History tablet psyllium husk 0.4 g PO DAILY 06/22/21 08/23/21 Unknown History 0.4 gram capsule (Reguloid (psyllium husk)) empagliflozin 25 mg PO QAM 08/23/21 08/23/21 08/28/21 History 25 mg tablet (Jardiance) Exam Airway Mallampati Class: III TM Dist: >3cm Neck ROM: Full Loose/Missing/Broken Teeth: Yes Assessment and Plan Assessment Anesthesia Assessment: Anesthesia Plan Discussed Final Anesthetic Review Family History of Problems with Anesthesia: No History of Problems with Anesthesia: No NPO: Yes ASA Class: III Final Preanesthetic Review: No Changes in Pt Med Stat, Meds/Allgs Chart Reviewed, Consent Obtained/Reviewed and Anes Risks/Benef Reviewed Patient Risk: Intermediate Procedure Risk: Low Anesthetic Plan Anesthetic Plan: MAC: Disposition: Standard PACU
[2021-08-28 09:52] VITALS: BP 138/89; PULSE 108; RESP 18; TEMP 36.1; O2SAT 98; BMI 36.6
[2021-08-28 09:56] LABS: Glucose, Whole Blood 151 mg/dL (60-115)
[2021-08-28] MEDS: Lactated Ringers 1,000 ML 100 ML IVCONT (10:08)
--- NOTE | 2021-08-28 10:38 | MHC.SHP ---
Pre-Procedural Eval Section A Date of Service: 08/28/21 Section B Chief Complaint: screening,rectal bleeding Details of Present Illness: hx of acid reflux Relevant Family History (Specify if Yes): No Relevant Social History: None Present Medications: see Short Stay Collaborative assessment Medical History: Significant History (Arthritis Blind left eye Chronic back pain Diabetes High cholesterol HTN (hypertension) Left knee pain Lumbar back pain with radiculopathy affecting lower extremity Morbid obesity Osteoarthritis of left knee Sacroiliitis Sleep apnea) History of Previous Operations: Relevant previous surgery/procedure and date(s) (History of hernia surgery History of testicular surgery S/P nasal surgery) Allergies: Allergies Allergy/AdvReac Type Severity Reaction Status Date / Time No Known Allergies Allergy Verified 08/23/21 09:51 Review of Systems Sugical H&P ROS: Negative: Constitution, Cardiovascular, Respiratory, Neurological, Psychiatric, Hem-Onc, Allergic/Immunologic, Gastrointestinal, Genitourinary, Musculoskeletal, Integumentary, Endocrine and Eyes/Ears/Nose/Throat Exam Surgical H&P Exam: Normal: HEENT, Normal: Heart, Normal: Lungs, Normal: Extremities, Normal: Abdomen, Normal: Skin and Normal: Neurological Plan Diagnosis/Plan: Unchanged I have reviewed the history and physical and performed a pertinent physical examination on my patient. No changes have occurred unless specified.
--- NOTE | 2021-08-28 10:41 | PM.OP ---
Brief Operative Note Date of Service: 08/28/21 Pre-op diagnosis: colon screening, acid reflux Post-op diagnosis: same Procedure: see op note Surgeon: Quentin Thurston MD Anesthesia: MAC Was an Photographic Hand Developer used for this Procedure?: No Estimated blood loss (mL): 0 Condition: stable Disposition: PACU
--- NOTE | 2021-08-28 10:41 | W.PM.OPN ---
Operative Note Operative Note Date of Service: 08/28/21 Narrative: Operative Information Procedure Description: EGD, Colonoscopy FLEXIBLE TRANSORAL UPPER GASTROINTESTINAL ENDOSCOPY AND COLONOSCOPY PROCEDURE NOTE UPPER ENDOSCOPY Consent: Indications for the procedure and potential complications of bleeding, perforation, reaction to medications and missed diagnosis were discussed with the patient and informed consent was obtained. Instrument: Olympus GIF H 190 J mid size upper endoscope Monitoring: Vital signs and clinical assessment, continuous EKG monitoring, Pulse oximetry, Carbon Dioxide monitoring and blood pressure monitoring were done throughout the procedure. Procedure: The patient was placed in the left lateral decubitis position and pre-procedure medications were administered and a bite block was placed. The endoscope was inserted into the mouth and advanced under direct vision to the third part of duodenum. A careful inspection was made as the upper endoscope was withdrawn including a retroflexed examination of the proximal stomach; Findings and interventions are described below. Findings: Larynx:normal Esophagus: GE junction at 44 cm, diaphragm hiatus at 44 cm, normal mucosa Stomach: PAtchy erythema and scarring of mucosa with erosion noted. Biopsies were obtained. Grade 2 flap valve on retroflexed examination of the cardia. Duodenum: Patchy erythema -bx taken Intervention: Biopsies as noted above COLONOSCOPY Instrument: Olympus variable stiffness adult scope 190L Colonoscopy Monitoring: Vital signs and clinical assessment, continuous EKG monitoring, Pulse oximetry, Carbon Dioxide monitoring and blood pressure monitoring were done throughout the procedure. Colon withdrawal time was 8 minutes. Procedure: The patient was placed in the left lateral decubitis position and pre-procedure medications were administered. After a digital rectal examination of the ano-rectum, the video colonoscope was inserted into the rectum and advanced through the colon to the cecum/TI. The colonoscope was slowly withdrawn in a retrograde panoramic fashion and the colon mucosa was carefully examined including a retroflexed view of the rectum. Findings and interventions are described below. Procedure Difficulty: easy Findings: Terminal Ileum-normal Cecum:normal Ascending Colon: normal Transverse Colon - mild diverticulosis Descending Colon:mild diverticulosis Sigmoid Colon: moderate diverticulosis with many small diverticula seen Rectum: Retroflexion with moderate sized internal hemorrhoids, grade II Anorectum - internal hemorrhoids seen at anal verge, midly inflammed Colon preparation: [place] Bowel Preparation Scale Right colon; 2 Transverse colon: 2 Left colon; 2 (0 = Unprepared colon segment with mucosa not seen due to solid stool that cannot be cleared. 1 = Portion of mucosa of the colon segment seen, but other areas of the colon segment not well seen due to staining, residual stool and/or opaque liquid. 2 = Minor amount of residual staining, small fragments of stool and/or opaque liquid, but mucosa of colon segment seen well. 3 = Entire mucosa of colon segment seen well with no residual staining, small fragments of stool or opaque liquid) Impression and Post Procedure Diagnosis: Endoscopy Findings: gastritis duodenitis Colonoscopy Findings: internal hemorrhoids diverticular disease Plan: Await Pathology results Repeat Colonoscopy in 10 years or earlier if clinically indicated High fiber diet leaflet avoid straining at stool, epsom salts and sitz bath, anusol supps or cream if h pylori pos then treat Above findings were reviewed with the patient and relevant handouts were provided if indicated.
[2021-08-28 11:24] VITALS: BP 93/50; PULSE 112; RESP 20; TEMP 36.4; O2SAT 95
[2021-08-28 11:40] VITALS: BP 115/75; PULSE 107; RESP 18; TEMP 36.2; O2SAT 94
== END 2021-08-28 12:19 ==
LOC: HO.SSS 09:03
PROVIDERS: PCP Internal Medicine; Visit Provider Internal Medicine Gastroenterology
PROC: (CPT 45378; principal; 2021-08-28 10:50)
DX: Z12.11 Encounter for screening for malignant neoplasm of colon (principal); Z80.0 Family history of malignant neoplasm of digestive organs; K57.30 Diverticulosis of large intestine without perforation or abscess without bleeding; K64.1 Second degree hemorrhoids; K59.00 Constipation, unspecified; K25.9 Gastric ulcer, unspecified as acute or chronic, without hemorrhage or perforation; K44.9 Diaphragmatic hernia without obstruction or gangrene; K21.9 Gastro-esophageal reflux disease without esophagitis; K29.50 Unspecified chronic gastritis without bleeding; B96.81 Helicobacter pylori [H. pylori] as the cause of diseases classified elsewhere; K29.80 Duodenitis without bleeding; I10 Essential (primary) hypertension; E11.9 Type 2 diabetes mellitus without complications; E78.00 Pure hypercholesterolemia, unspecified; H54.62 Unqualified visual loss, left eye, normal vision right eye; E66.01 Morbid (severe) obesity due to excess calories; Z68.36 Body mass index [BMI] 36.0-36.9, adult; Z82.49 Family history of ischemic heart disease and other diseases of the circulatory system
CPT/HCPCS: 45378; 43239; 82947; 88305; 88342; J2250

== ENCOUNTER → 2021-09-11 08:58 | Outpatient (BNVA) | payer MEDICAID, SELFPAY | PROVIDERS: PCP Internal Medicine; Referring Provider Internal Medicine; Visit Provider Nurse Practitioner Family | DX: K59.00 Constipation, unspecified (principal); K57.90 Diverticulosis of intestine, part unspecified, without perforation or abscess without bleeding; K64.8 Other hemorrhoids; A04.8 Other specified bacterial intestinal infections; Z98.890 Other specified postprocedural states | CPT/HCPCS: 99212 ==

== ENCOUNTER → 2021-09-13 09:48 | Outpatient (BNVA) | payer MEDICAID, SELFPAY | PROVIDERS: PCP Internal Medicine; Visit Provider Orthopaedic Surgery | DX: M17.12 Unilateral primary osteoarthritis, left knee (principal); M25.362 Other instability, left knee; E11.9 Type 2 diabetes mellitus without complications | CPT/HCPCS: 99212 ==

== ENCOUNTER 2021-10-05 11:22 | Day surgery (SDC) | payer MEDICAID, SELFPAY ==
[2021-10-01 11:00] VITALS: BMI 36.6
--- NOTE | ~2021-10-05 | FL_ITS ---
EXAMINATION: XR FLUOROSCOPY WITH IMAGES CLINICAL INFORMATION: Medial branch RFA lumbar, bilateral COMPARISON: CT abdomen 07/31/2021 TECHNIQUE: Fluoroscopy performed by Dr. Holger Downing. Fluoroscopy time: 0.8 minutes DAP: 17.2 Gycm2 Images: 3 FINDINGS: There are spinal needles/electrodes overlying the bilateral outer L3, L4, and L5 neural foramen. There are degenerative changes lower lumbar spine with disc narrowing and vertebral spurring L4-L5 and L5-S1. FL/FL guidance in OR IMPRESSION: Fluoroscopy for pain management procedures.
[2021-10-05 12:02] VITALS: BP 137/75; PULSE 93; RESP 18; TEMP 36.6; O2SAT 95
--- NOTE | 2021-10-05 12:18 | P.CONAN_ITS ---
HPI - Anesthesia Eval Consult details Narrative: Chronic Back Pain COUNT INCLUDES THE [facility] Active Problems Active Problems: All Active Problems (Updated 09/25/21 @ 13:11 by Maria Esther Smith MD) Essential hypertension (Acute) LIANE (obstructive sleep apnea) (Acute) Liver mass (Acute) COVID (Acute) Acute respiratory failure with hypoxia (Acute) Nocturnal hypoxemia (Acute) Chest pain (Acute) Equivocal stress test (Acute) Sinus tachycardia (Acute) Other instability, left knee (Acute) Diverticulosis (Acute) Osteoarthritis of left knee (Acute) Diabetes (Acute) Morbid obesity (Acute) Past Medical History Medical History Arthritis Blind left eye Chronic back pain Diabetes Diverticulosis High cholesterol HTN (hypertension) Left knee pain Lumbar back pain with radiculopathy affecting lower extremity Morbid obesity Osteoarthritis of left knee Sacroiliitis Sleep apnea Family History Family History Mother Intestinal cancer Brother Narcolepsy Family history of problems with anesthesia: No Surgical History Surgical History History of esophagogastroduodenoscopy (EGD) History of hernia surgery History of testicular surgery Hx of colonoscopy S/P nasal surgery History of Problems with Anesthesia: No Social History Social History Household Members: Children Housing: Apartment Do you presently have visiting nurse or other home services: No Alcohol intake: current Alcohol intake frequency: a few times a month Alcohol type: beer and hard liquor Patient Tobacco Use Status: Never used Tobacco e-Cigarette/Vaping Use: Never Used Second Hand Smoke Exposure: No Are you DNR?: No Advance Directives: No Advance Directives Information Provided: Yes Recently lost weight without trying: No service: No Current occupational status: unemployed Current occupation: left handed Meds Allergies Allergy/AdvReac Type Severity Reaction Status Date / Time No Known Allergies Allergy Verified 09/11/21 09:23 Active Medications: Current Medications Lactated Ringer's (Lr) 1,000 mls @ 50 mls/hr IVCONT .Q20H [facility] Home Medications Medication Instructions Recorded Confirmed Last Taken Type lisinopril 30 mg tablet 30 mg PO DAILY 08/29/20 10/01/21 Unknown History melatonin 5 mg tablet 10 mg PO BEDTIME PRN 08/29/20 10/01/21 Unknown History atorvastatin 40 mg tablet 40 mg PO DAILY 06/22/21 10/01/21 Unknown History escitalopram oxalate 20 mg tablet 20 mg PO DAILY 06/22/21 10/01/21 06/22/21 History furosemide 20 mg tablet 20 mg PO DAILY 06/22/21 10/01/21 Unknown History glipizide 5 mg tablet 5 mg PO BIDAC 06/22/21 10/01/21 Unknown History insulin glargine 100 unit/mL (3 22 unit SUBCUT BEDTIME 06/22/21 10/01/21 07/25/21 20:00 History mL) subcutaneous pen (Lantus 22 units Solostar U-100 Insulin) lorazepam 1 mg tablet 1 mg PO BID PRN 06/22/21 10/01/21 Unknown History empagliflozin 25 mg tablet 25 mg PO QAM 08/23/21 10/01/21 08/28/21 History (Jardiance) tizanidine 4 mg tablet 4 mg PO Q8H PRN 09/11/21 09/25/21 Unknown History Exam Exam Date and Time: October 05, 2021 1218 Height,Weight and Vital Signs: Height 6 ft Weight 122.47 kg Last Vital Signs Temp 97.9 F 10/05/21 12:02 Pulse 93 10/05/21 12:02 Resp 18 10/05/21 12:02 BP 137/75 10/05/21 12:02 Pulse Ox 95 10/05/21 12:02 Airway Mallampati Class: III TM Dist: >3cm Neck ROM: Full Loose/Missing/Broken Teeth: Yes (few back teeth loose) Heart: rrr+[id number] Lungs: cta b/l Assessment and Plan Assessment Anesthesia Assessment: Anesthesia Plan Discussed and Chart Reviewed Final Anesthetic Review Family History of Problems with Anesthesia: No History of Problems with Anesthesia: No NPO: Yes ASA Class: III Final Preanesthetic Review: No Changes in Pt Med Stat, Meds/Allgs Chart Reviewe d, Consent Obtained/Reviewed and Anes Risks/Benef Reviewed Patient Risk: Intermediate Procedure Risk: Low Assessment/Block/Sedation in SS: Assess/Block/Sedation-SS Anesthetic Plan Anesthetic Plan: MAC: and Agree w/ Assess. and Plan Disposition: Standard PACU
[2021-10-05] MEDS: Lactated Ringers 1,000 ML 50 ML IVCONT (12:19)
[2021-10-05 12:31] LABS: Glucose, Whole Blood 215 mg/dL (60-115)
--- NOTE | 2021-10-05 12:53 | MHC.SHP ---
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 Details of Present Illness: as above Relevant Family History (Specify if Yes): No Relevant Social History: None Present Medications: see Short Stay Collaborative assessment Medical History: No relevant PMH History of Previous Operations: No relevant previous surgery Allergies: Allergies Allergy/AdvReac Type Severity Reaction Status Date / Time No Known Allergies Allergy Verified 10/05/21 12:29 Review of Systems Sugical H&P ROS: Negative: Cardiovascular, Respiratory, Neurological, Psychiatric, Hem-Onc, Allergic/Immunologic, Gastrointestinal, Genitourinary, Musculoskeletal, Integumentary, Endocrine and Eyes/Ears/Nose/Throat and Yes, Specify: Constitution (morbid obesity) Exam Surgical H&P Exam: Normal: HEENT, Normal: Heart, Normal: Lungs, Normal: Extremities, Normal: Abdomen, Normal: Skin and Normal: Neurological Plan Diagnosis/Plan: Unchanged I have reviewed the history and physical and performed a pertinent physical examination on my patient. No changes have occurred unless specified.
--- NOTE | 2021-10-05 12:55 | P.BOP_ITS ---
Brief Operative Note Date of Service: 10/05/21 Pre-op diagnosis: spondylosis lumbar spine Post-op diagnosis: same Procedure: RFA L3- L4- DRL5 bilateal medial branches Implants: none Surgeon: Holger Downing MD Anesthesia: MAC Was an [facility] used for this Procedure?: No Estimated blood loss (mL): 3 Pathology: none sent Condition: stable Disposition: PACU
--- NOTE | 2021-10-05 12:55 | W.PM.OPN ---
Operative Note Operative Note Date of Service: 10/05/21 Narrative: Informed consent was explained to the patient. All questions were explained and answered. The patient was taken inside the operating room where he was positioned prone on the operating table. [employer] monitors were applied. Patient was deeply sedated. Time-out was performed delineating correct site, side, the nature of the procedure, patient's allergy, preoperative antibiotic if needed. All operating room staff was participating in OR time-out procedure. The lower back was prepped with ChloraPrep and draped with sterile towels. Sterilely draped C-arm was brought over the operating field and sq picture of L4-and L5 vertebra and S1 AREA were delineated on the screen. Point of interest were delineated as connection of superior articular process of L4 and L5 vertebra bilaterally with corresponding transverse processes as well as connection of the sacral alae bilaterally with superior articular process of S1. The projection of the point of interest to the skin were injected with the small amount of local anesthetic lidocaine 2% 1-1.5 cc. After that 22 gauge 100 mm RFA canulas were driven to the point of interest in oblique fashion. After needles gently contacted the bone the motor tests were performed and no motor response was detected in the patients feet lower legs or thighs. After that at the point of interests thecanulas was injected with small amount of bupivacaine 0.5%-1cc mixed with very small trace amount of Kenalog. 90 seconds after the injection the energy application was performed at 89 degrees Centigrade for 90 second. After first energy application the canullas were rotated 180 degress and energy application was repeated at the same setting. Upon completion of the injections canylas were removed and sterile dressings were applied, The patient was awaken and taken outside of the operating room to recovery room where he recovered uneventfully.
[2021-10-05 13:50] VITALS: BP 127/60; PULSE 108; RESP 12; TEMP 36.5; O2SAT 96
[2021-10-05 14:05] VITALS: BP 150/88; PULSE 109; RESP 18; TEMP 36.4; O2SAT 96
== END 2021-10-05 14:46 | disposition home or self-care (01) ==
PROVIDERS: PCP Internal Medicine; Visit Provider Anesthesiology
PROC: (CPT 64635; principal; 2021-10-05 12:40)
DX: M47.817 Spondylosis without myelopathy or radiculopathy, lumbosacral region (principal); M46.1 Sacroiliitis, not elsewhere classified; E66.01 Morbid (severe) obesity due to excess calories; M17.12 Unilateral primary osteoarthritis, left knee; G47.33 Obstructive sleep apnea (adult) (pediatric); I10 Essential (primary) hypertension; E10.9 Type 1 diabetes mellitus without complications; Z79.4 Long term (current) use of insulin; Z79.899 Other long term (current) drug therapy
CPT/HCPCS: 64635; 64636 ×2; 82947; J2250; J2370; J3010; J3300

== ENCOUNTER → 2021-10-24 11:08 | Outpatient (BNVA) | payer MEDICAID, SELFPAY | PROVIDERS: PCP Internal Medicine; Referring Provider Internal Medicine; Visit Provider Nurse Practitioner Family | DX: K21.9 Gastro-esophageal reflux disease without esophagitis (principal); K59.01 Slow transit constipation; K64.8 Other hemorrhoids | CPT/HCPCS: 99212 ==

== ENCOUNTER → 2021-10-29 08:52 | Outpatient (BNVA) | payer MEDICAID, SELFPAY | PROVIDERS: PCP Internal Medicine; Visit Provider Orthopaedic Surgery | DX: M17.12 Unilateral primary osteoarthritis, left knee (principal); E11.9 Type 2 diabetes mellitus without complications | CPT/HCPCS: 20610; 99212; J1100 ==

== ENCOUNTER 2021-11-02 09:04 | Inpatient (IN) | payer MEDICAID, SELFPAY ==
--- NOTE | ~2021-11-02 | US_ITS ---
EXAMINATION: US ABDOMEN LIMITED CLINICAL INFORMATION: Upper abdominal pain. COMPARISON: Prior ultrasound April 2021 TECHNIQUE: Real-time imaging of the right upper quadrant abdominal viscera. FINDINGS: PANCREAS: The visualized portion of the pancreas head and body are normal, portion of the pancreatic body and tail, not visualized are obscured by bowel gas. LIVER: Redemonstration of ill-defined hypodense structure in the liver 2.4 x 1.8 x 2.5 cm has not significantly changed from prior exam. Macro steatosis GALLBLADDER: Normal. The gallbladder is physiologically distended without evidence of stones, sludge, polyps, wall thickening or pericholecystic fluid. COMMON BILE DUCT: Normal in caliber measuring 0.4 cm in diameter. RIGHT KIDNEY: Normal. No hydronephrosis. No renal calculi or focal parenchymal lesions. The kidney measures 12.2 cm in maximum dimension. FREE FLUID: None. US/US abdomen limited IMPRESSION: *Redemonstration of hypodense focal lesion in the liver right lobe 2.4 cm unchanged from prior ultrasound of April 2021, this is indeterminant, consider correlation with follow-up MRI liver protocol for further investigation to rule out neoplasm. *Increased echogenicity of the liver parenchyma, this can be seen in the setting of hepatic steatosis or liver parenchymal disease. *No ultrasound explanation for patient's pain symptoms, no evidence of gallbladder disease or gallstones.
--- NOTE | ~2021-11-02 | CT_ITS ---
EXAMINATION: CT ABDOMEN AND PELVIS WITH CONTRAST CLINICAL INFORMATION: Epigastric pain, elevated lipase COMPARISON: CT abdomen pelvis 07/31/2021, 08/22/2020 TECHNIQUE: Multidetector volumetric images were obtained from the superior aspect of the liver through the pubic symphysis following administration 85 mL of Omnipaque 350 intravenous contrast. Sagittal and coronal reformatted images were obtained on the technologist's workstation. Oral contrast: No This CT examination was performed using dose optimization techniques as appropriate, variously including the following: *Automated exposure control *Adjustment of mA and/or kV according to patient size (this includes techniques or standardized protocols for targeted exams where dose is matched to indication/reason for exam; i.e. extremities or head) *Use of iterative reconstruction technique DLP: Thousand 21 mGy-cm FINDINGS: LUNG BASES: Unremarkable. ABDOMINAL AND PELVIC WALL: Unremarkable. LIVER AND BILIARY TREE: Hypoattenuating hepatic parenchyma suggesting hepatic steatosis. A 1.9 cm in indeterminate hypervascular liver lesion in hepatic segment 4B, similar to prior previously 2.1 cm. GALLBLADDER: Unremarkable. PANCREAS: There is peripancreatic inflammatory changes surrounding the pancreatic head. Pancreas is relatively atrophic. Pancreas is homogeneously enhancing. No organized fluid collection. SPLEEN: Unremarkable. ADRENAL GLANDS: Unremarkable. KIDNEYS AND URETERS: Unremarkable. GASTROINTESTINAL TRACT: Unremarkable. Normal appendix. VASCULAR: Unremarkable. LYMPH NODES/PERITONEUM: Few small peripancreatic nodes likely reactive. FREE FLUID: None. BLADDER: Unremarkable. PELVIC VISCERA: Unremarkable. OSSEOUS STRUCTURES: Unremarkable. CT/CT abdomen pelvis w con IMPRESSION: Peripancreatic inflammatory fat stranding concerning the pancreatic head compatible with interstitial pancreatitis. Increase is homogeneously enhancing without evidence of necrosis. No organized fluid collection. A 1.9 cm indeterminate hypervascular liver lesion in hepatic segment 4B similar to prior. Again recommend definitive characterization with MR abdomen liver protocol with contrast if one has not already been obtained. Hepatic steatosis.
--- NOTE | ~2021-11-02 | XR_ITS ---
EXAMINATION: XR CHEST CLINICAL INFORMATION: Chest pain. COMPARISON: 06/22/2021 chest radiograph. TECHNIQUE: 2 views of the chest were obtained. FINDINGS: The lungs are clear. There are no pleural effusions. The heart and mediastinal structures are unremarkable. XR/XR chest 2V IMPRESSION: No acute cardiopulmonary process. Interval improvement in previously seen nodular infiltrates favoring a previous infectious/inflammatory process.
[2021-11-02 09:10] VITALS: BP 159/100; PULSE 128; RESP 16; TEMP 35.8; O2SAT 97; BMI 36.7
--- NOTE | 2021-11-02 09:14 | ECG_ITS ---
Test Reason : cp Blood Pressure : / mmHG Vent. 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
[2021-11-02 09:27] LABS: MANUAL DIFF FLAG NO
[2021-11-02 09:29] LABS: Basophils Absolute Auto 0.1 X10*3/uL (0.0-0.2); Basophils Percent Auto 0.8 % (0-2); Eosinophils Absolute Auto 0.2 X10*3/uL (0.0-0.4); Eosinophils Percent Auto 1.5 % (0-4); Hematocrit 47.2 % (42.0-52.0); Hemoglobin 16.5 g/dl (14.0-18.0); Imm Gran Abs Auto 0.03 X10*3/uL (0.00-0.03); Imm Gran Pct Auto 0.3 % (0.0-0.4); Lymphocytes Absolute Auto 2.8 X10*3/uL (1.2-4.9); Lymphocytes Percent Auto 28.2 % (20-40); Mean Corpuscular Volume 88.6 fL (80.0-98.0); Mean Platelet Volume 10.7 fL (9.4-12.4); Monocytes Absolute Auto 0.9 X10*3/uL (0.1-1.2); Monocytes Percent Auto 9.3 % (2-11); Neutrophils Percent Auto 59.9 % (45-73); Platelet Count 221 X10*3/uL (160-400); Red Blood Count 5.33 X10*6/uL (4.60-5.80); Red Cell Distribution Width 13.1 % (11.0-16.0); White Blood Count 10.1 X10*3/uL (4.8-10.8)
[2021-11-02 09:53] LABS: Anion Gap 19 (12-20); Blood Urea Nitrogen 15 mg/dL (9-16); Calcium 9.2 mg/dL (8.4-10.2); Carbon Dioxide 24 mmol/L (22-29); Chloride 92 mmol/L (96-108); Creatinine Clr Calc Pharmacy 119.5; Estimated Glomerular Filt Rate > 60; Glucose Random 221 mg/dL (60-115); Potassium 3.6 mmol/L (3.3-5.1); Sodium 131 mmol/L (135-145)
[2021-11-02 12:46] VITALS: BP 130/93; PULSE 127; RESP 18; O2SAT 99
--- NOTE | 2021-11-02 12:48 | ED.ABDPAIN ---
HPI - Abdominal Pain General Chief Complaint: Abdominal Pain Stated Complaint: abd pain, chest pain Time Seen by Provider: 11/02/21 12:44 Source: patient and secondary school principal Mode of arrival: ambulatory Limitations: language barrier History of Present Illness HPI narrative: 51 yo male with history of arthritis, diabetes, high cholesterol, hypertension, H pylori status post treatment, fatty liver, h/o liver mass with reportedly negative biopsy with reports of upper abdominal pain since Friday. However, on review of chart patient complained of this pain during GI visit 10/24 and was treated for additional five days for h.pylori d/t previous noncompliance. Patient reports associated nausea with no vomiting. No urinary symptoms, diarrhea, constipation. Patient tells me that he does feel some pressure and bloating in his upper abdomen but denies any chest pain, shortness of breath, diaphoresis Related Data Home Medications Medication Instructions Recorded Confirmed melatonin 5 mg tablet 10 mg PO BEDTIME PRN 08/29/20 11/02/21 atorvastatin 40 mg tablet 40 mg PO DAILY 06/22/21 11/02/21 escitalopram oxalate 20 mg tablet 20 mg PO DAILY 06/22/21 11/02/21 glipizide 5 mg tablet 5 mg PO BIDAC 06/22/21 11/02/21 insulin glargine 100 unit/mL (3 22 unit SUBCUT BEDTIME 06/22/21 11/02/21 mL) subcutaneous pen (Lantus Solostar U-100 Insulin) empagliflozin 25 mg tablet 25 mg PO DAILY 08/23/21 11/02/21 (Jardiance) multivitamin 1 tab PO DAILY 10/24/21 11/02/21 buspirone 5 mg tablet 5 mg PO DAILY 11/02/21 11/02/21 docusate sodium 100 mg capsule 100 mg PO DAILY PRN 11/02/21 11/02/21 lisinopril 30 mg tablet 1 tab PO DAILY 11/02/21 11/02/21 lorazepam 2 mg tablet 2 mg PO BID PRN 11/02/21 11/02/21 metronidazole 500 mg tablet 500 mg PO BID 11/02/21 11/02/21 omeprazole 20 mg capsule,delayed 20 mg PO BID 11/02/21 11/02/21 release tetracycline 500 mg capsule 500 mg PO Q12H 11/02/21 11/02/21 Previous Rx's Medication Instructions Recorded amlodipine 10 mg tablet 10 mg PO DAILY #60 tab 02/22/21 baclofen 20 mg tablet 20 mg PO TID 30 Days #90 tab 08/20/21 metoprolol succinate 25 mg 25 mg PO DAILY #60 tab 08/23/21 tablet,extended release 24 hr ibuprofen 600 mg tablet 600 mg PO Q8H PRN #90 tab 10/29/21 Allergies Allergy/AdvReac Type Severity Reaction Status Date / Time No Known Allergies Allergy Verified 10/24/21 11:12 Review of Systems Review of Systems Yes all other systems are reviewed and are negative Constitutional: Reports no additional constitutional complaints, Denies body ache(s), Denies chills, Denies fever(s), Denies headache(s) and Denies weakness Eyes: Reports no additional eye complaints and Denies change in vision Reports system reviewed and no additional complaints, except as documented, Denies dizziness, Denies headache(s), Denies nasal congestion, Denies nasal discharge and Denies neck pain Cardiovascular: Reports no additional cardiovascular complaints, Denies chest pain, Denies leg edema and Denies dyspnea Respiratory: Reports no additional respiratory complaints, Denies cough and Denies dyspnea Gastrointestinal: Reports no additional gastrointestinal complaints, Reports abdominal pain, Denies melena, Denies hematochezia, Denies constipation, Denies diarrhea, Reports nausea and Denies vomiting Genitourinary: Denies urinary incontinence Musculoskeletal: Reports no additional musculoskeletal complaints, Denies back pain, Denies arthralgias, Denies joint swelling, Denies neck pain, Denies numbness and Denies tingling Skin/Breast: Reports system reviewed and no additional complaints, except as docu and Denies rash Reports system reviewed and no additional complaints, except as documented, Denies dizziness, Denies headache(s), Denies numbness, Denies tingling and Denies weakness [facility], [facility] Past Medical History Attestation statement: The following information was validated with the patient. Source: old records reviewed and nursing notes reviewed Medical History Arthritis Blind left eye Chronic back pain Diabetes Diverticulosis High cholesterol HTN (hypertension) Left knee pain Lumbar back pain with radiculopathy affecting lower extremity Morbid obesity Osteoarthritis of left knee Sacroiliitis Sleep apnea Surgical History History of esophagogastroduodenoscopy (EGD) History of hernia surgery History of testicular surgery Hx of colonoscopy S/P nasal surgery Family History Family History Mother Intestinal cancer Brother Narcolepsy Social History Social History Household Members: Children Housing: Apartment Do you presently have visiting nurse or other home services: No Alcohol intake: current Alcohol intake frequency: a few times a month Alcohol type: beer and hard liquor Patient Tobacco Use Status: Never used Tobacco e-Cigarette/Vaping Use: Never Used Second Hand Smoke Exposure: No Advance Directives: No Advance Directives Information Provided: No service: No Current occupational status: unemployed Current occupation: left handed Physical Exam ED Vital Signs: Vital Signs - 24 hr 11/02/21 09:10 11/02/21 12:46 11/02/21 14:30 Temperature 96.4 F L Pulse Rate 128 H 127 H 110 H Respiratory Rate 16 18 18 Blood Pressure 159/100 H 130/93 H 146/86 H Pulse Oximetry 97 99 96 11/02/21 15:09 11/02/21 18:35 Temperature 97.9 F Pulse Rate 104 H 100 Respiratory Rate 18 18 Blood Pressure 133/85 136/93 H Pulse Oximetry 96 99 BMI result Body Mass Index 36.7 Const General: cooperative, healthy appearing and comfortable Orientation/consciousness: patient oriented x3 Limitations: no limitations HENMT Head: Yes normal to inspection Ears: hearing grossly normal bilaterally and TM's normal bilaterally General nose exam: Normal external nose present Face and sinus: Yes normal facial exam Mouth: Normal oral and palatal mucosa present Teeth and gingiva: dentition normal Throat: Yes posterior oropharynx normal, Yes tonsils normal and Yes uvula midline Eyes General: appearance normal, both eyes and all related structures Pupils: Equal, round and reactive pupils present Neck Neck: Yes normal visual inspection, Yes full ROM, Yes no lymphadenopathy and Yes no meningeal signs Chest Chest palpation & inspection: normal inspection of the chest Resp Effort & Inspection: normal respiratory effort Cardio Rate: tachycardic Rhythm: regular rhythm Peripheral pulses: Peripheral pulses 2+ throughout GI Inspection: Yes normal to inspection Palpation (GI): Soft to palpation and Tenderness to palpation present (GI) (Epigastric, right upper and left upper quadrant) General: Yes no CVA tenderness Back/Spine/Pelvis Back: no CVA tenderness Thoracic/Lumbar Spine: thoracic and lumbar spine normal to inspection Skin General skin exam: no rashes or lesions noted Neuro General: patient oriented x3, moves all extremities and no meningeal signs Cranial nerves: Yes Equal, round and reactive pupils present Cognition (Neuro): normal cognition Gait exam (Neuro): Normal gait present Motor exam (neuro): 5/5 motor strength present throughout Sensory Exam: Normal double simultaneous stimulation for sensation Extrem General: Yes normal to inspection, Yes no pedal edema and Yes no calf tenderness Course Course Course Narrative: 1245-This is rapid medical exam. 51 yo male here with abdominal pain x several days worsened last night with nausea. TTP upper abdomen. Will check labs,EKG, CXR, abdominal US. Deferred additional HPI, ROS and PE to primary provider. _drinks alcohol 4-5 x weekly (3 vodkas) Reevaluation(s) Reevaluation #1: How labs show elevated LFTs and elevated lipase. Abdominal ultrasound shows a liver lesion which is unchanged from previous ultrasound. Due to continued epigastric pain will check CT to rule out pancreatitis. Time: 15:30 Reevaluation #2: CT shows acute pancreatitis. Patient has required multiple rounds of IV pain medication for pain control. Will admit to medicine Time: 19:00 MDM - Abdominal Pain MDM Narrative Medical decision making narrative: ACS, pancreatitis, cholecystitis, gastritis, gerd Medical Records Attestation: I reviewed the patient's medical records. Lab Data Attestation: I reviewed the patient's lab results. Result diagrams: 11/02/21 09:22 11/02/21 09:22 Labs: Lab Results 11/02/21 11/02/21 11/02/21 Range/Units 09:22 09:22 09:22 WBC 10.1 (4.8-10.8) X10*3/uL RBC 5.33 (4.60-5.80) X10*6/uL Hgb 16.5 (14.0-18.0) g/dl Hct 47.2 (42.0-52.0) % MCV 88.6 (80.0-98.0) fL MCH 31.0 (27.0-33.0) pg MCHC 35.0 (31.0-36.0) g/dl RDW 13.1 (11.0-16.0) % Plt Count 221 (160-400) X10*3/uL MPV 10.7 (9.4-12.4) fL Immature Gran % (Auto) 0.3 (0.0-0.4) % Neut % (Auto) 59.9 (45-73) % Lymph % (Auto) 28.2 (20-40) % [place] % (Auto) 9.3 (2-11) % Eos % (Auto) 1.5 (0-4) % Baso % (Auto) 0.8 (0-2) % Lymph # (Auto) 2.8 (1.2-4.9) X10*3/uL [place] # (Auto) 0.9 (0.1-1.2) X10*3/uL Eos # (Auto) 0.2 (0.0-0.4) X10*3/uL Baso # (Auto) 0.1 (0.0-0.2) X10*3/uL Abs Immat Gran (auto) 0.03 (0.00-0.03) X10*3/uL Absolute Neuts (auto) 6.0 (2.0-8.3) x10*3/uL Absolute Nucleated RBC 0.000 (0.0-0.012) X10*3/uL Nucleated RBC % (auto) 0.0 (0.0-0.2) /100WBC PT (9.9-13.0) SEC INR (0.9-1.1) Sodium 131 L (135-145) mmol/L Potassium 3.6 D (3.3-5.1) mmol/L Chloride 92 L (96-108) mmol/L Carbon Dioxide 24 (22-29) mmol/L Anion Gap 19 (12-20) BUN 15 (9-16) mg/dL Creatinine 0.99 (0.5-1.4) mg/dL Estim Creat Clear Calc 119.5 Estimated GFR > 60 Random Glucose 221 H (60-115) mg/dL Calcium 9.2 (8.4-10.2) mg/dL Magnesium 1.8 (1.6-2.6) mg/dL Total Bilirubin 1.3 H (0.0-1.0) mg/dL Direct Bilirubin 0.6 H (0.0-0.5) mg/dL AST 127 H (5-37) U/L ALT 111 H (0-40) U/L Alkaline Phosphatase 150 H D (39-117) U/L Troponin I High Sens 11.0 (<3.5-35.0) ng/L Total Protein 7.5 (6.5-8.0) g/dL Albumin 4.2 (3.5-5.0) g/dL Triglycerides 704 mg/dL Lipase 116 H (8-78) U/L COVID-19 (ALLEN) (Negative) COVID-19 Clin Com 11/02/21 11/02/21 11/02/21 Range/Units 13:45 13:45 13:45 WBC (4.8-10.8) X10*3/uL RBC (4.60-5.80) X10*6/uL Hgb (14.0-18.0) g/dl Hct (42.0-52.0) % MCV (80.0-98.0) fL MCH (27.0-33.0) pg MCHC (31.0-36.0) g/dl RDW (11.0-16.0) % Plt Count (160-400) X10*3/uL MPV (9.4-12.4) fL Immature Gran % (Auto) (0.0-0.4) % Neut % (Auto) (45-73) % Lymph % (Auto) (20-40) % [place] % (Auto) (2-11) % Eos % (Auto) (0-4) % Baso % (Auto) (0-2) % Lymph # (Auto) (1.2-4.9) X10*3/uL [place] # (Auto) (0.1-1.2) X10*3/uL Eos # (Auto) (0.0-0.4) X10*3/uL Baso # (Auto) (0.0-0.2) X10*3/uL Abs Immat Gran (auto) (0.00-0.03) X10*3/uL Absolute Neuts (auto) (2.0-8.3) x10*3/uL Absolute Nucleated RBC (0.0-0.012) X10*3/uL Nucleated RBC % (auto) (0.0-0.2) /100WBC PT 14.3 H (9.9-13.0) SEC INR 1.3 H (0.9-1.1) Sodium (135-145) mmol/L Potassium (3.3-5.1) mmol/L Chloride (96-108) mmol/L Carbon Dioxide (22-29) mmol/L Anion Gap (12-20) BUN (9-16) mg/dL Creatinine (0.5-1.4) mg/dL Estim Creat Clear Calc Estimated GFR Random Glucose (60-115) mg/dL Calcium (8.4-10.2) mg/dL Magnesium (1.6-2.6) mg/dL Total Bilirubin (0.0-1.0) mg/dL Direct Bilirubin (0.0-0.5) mg/dL AST (5-37) U/L ALT (0-40) U/L Alkaline Phosphatase (39-117) U/L Troponin I High Sens 11.2 (<3.5-35.0) ng/L Total Protein (6.5-8.0) g/dL Albumin (3.5-5.0) g/dL Triglycerides mg/dL Lipase (8-78) U/L COVID-19 (ALLEN) Negative (Negative) COVID-19 Clin Com See Note Imaging Data Chest x-ray: Attestation: I personally reviewed and interpreted this imaging study as follows: Radiologist's impression: EXAMINATION: XR CHEST CLINICAL INFORMATION: Chest pain. COMPARISON: 06/22/2021 chest radiograph. TECHNIQUE: 2 views of the chest were obtained. FINDINGS: The lungs are clear. There are no pleural effusions. The heart and mediastinal structures are unremarkable. XR/XR chest 2V IMPRESSION: No acute cardiopulmonary process. Interval improvement in previously seen nodular infiltrates favoring a previous infectious/inflammatory process. US - abdomen: Attestation: I personally reviewed and interpreted this imaging study as follows: Radiologist's impression: IMPRESSION: *Redemonstration of hypodense focal lesion in the liver right lobe 2.4 cm unchanged from prior ultrasound of April 2021, this is indeterminant, consider correlation with follow-up MRI liver protocol for further investigation to rule out neoplasm. ? *Increased echogenicity of the liver parenchyma, this can be seen in the setting of hepatic steatosis or liver parenchymal disease. ? *No ultrasound explanation for patient's pain symptoms, no evidence of gallbladder disease or gallstones. CT scan - abdomen: Attestation: I personally reviewed and interpreted this imaging study as follows: Radiologist's impression: CT/CT abdomen pelvis w con IMPRESSION: ? Peripancreatic inflammatory fat stranding concerning the pancreatic head compatible with interstitial pancreatitis. Increase is homogeneously enhancing without evidence of necrosis. No organized fluid collection. ? A 1.9 cm indeterminate hypervascular liver lesion in hepatic segment 4B similar to prior. Again recommend definitive characterization with MR abdomen liver protocol with contrast if one has not already been obtained. ? Hepatic steatosis. ECG Data Attestation: I personally reviewed and interpreted this ECG as follows: ECG interpretation date: 11/02/21 ECG interpretation time: 09:10 Interpretation: Sinus tachycardia with a rate of 121, normal [place], normal QRS, normal QT Discharge Plan Discharge Clinical Impression: Pancreatitis, Elevated liver enzymes Patient Disposition: Admitted As Inpatient
[2021-11-02 13:10] LABS: Alanine Aminotransferase 111 U/L (0-40); Albumin Level 4.2 g/dL (3.5-5.0); Alkaline Phosphatase 150 U/L (39-117); Aspartate Amino Transferase 127 U/L (5-37); Bilirubin Direct 0.6 mg/dL (0.0-0.5); Bilirubin Total 1.3 mg/dL (0.0-1.0); Lipase 116 U/L (8-78); Magnesium 1.8 mg/dL (1.6-2.6); Total Protein 7.5 g/dL (6.5-8.0)
[2021-11-02] MEDS: 0.9 % Sodium Chloride 1,000 ML 999 ML IV (13:49)
[2021-11-02] MEDS: ondansetron HCL 4 MG/2 ML VIAL IVPUSH (13:51)
[2021-11-02] MEDS: Morphine Sulfate 4 MG/ML CARTRIDGE IVPUSH ×2 (13:51→20:12)
[2021-11-02 13:57] LABS: INTERNATIONAL NORM RATIO 1.3 (0.9-1.1); Prothrombin Time 14.3 SEC (9.9-13.0)
[2021-11-02 14:05] LABS: COVID-19 Test Negative (Negative)
[2021-11-02 14:15] LABS: Troponin-I High Sensitivity 11.2 ng/L (<3.5-35.0)
--- NOTE | 2021-11-02 14:29 | PHA.MEDREC ---
Pharmacy Consult ? Medication Reconciliation Pharmacy has completed the medication reconciliation. Pt had a black book with list of medications, however there was a discrepancy about which dose of Jardiance he is taking- his personal list said 10mg but most recent pharmacy claim is for 25mg from September. He had prescriptions for tetracycline 500mg BID, metronidazole 500mg BID, and omeprazole 20mg BID on his person, but not in recent claim history. Pt stated he got them from his GI doctor to help get his stomach right. Darby Torres, VanessaD
[2021-11-02 14:30] VITALS: BP 146/86; PULSE 110; RESP 18; O2SAT 96
[2021-11-02 15:09] VITALS: BP 133/85; PULSE 104; RESP 18; TEMP 36.6; O2SAT 96
[2021-11-02] MEDS: iohexoL 350 MG/ML 100 ML INFUS..BTL IV (16:24)
[2021-11-02 18:35] VITALS: BP 136/93; PULSE 100; RESP 18; O2SAT 99
[2021-11-02 19:44] LABS: Triglycerides 704 mg/dL
--- NOTE | 2021-11-02 21:09 | P.HPHOSP_ITS ---
History of Present Illness Date of Service: 11/02/21 Chief Complaint: epigastric pain 51-year-old male with past medical history of diabetes, sleep apnea, hypertension, hyperlipidemia, alcohol abuse, presents the hospital with complaints of epigastric pain. Patient reports the symptoms started about 3 days ago, localized to the epigastric region, radiating to the right upper quadrant as well as to the back, associated with nausea and vomiting and low appetite, no diarrhea constipation, no urinary symptoms and no lower extremity at this time. Patient reports that he drinks about 4 days a week 3-4 glasses of vodka daily. He reports that he has been doing this for over 30 years. He denies having any fever or chills. on arrival to the ED patient found to have temp of 96.4 degrees, heart rate of 128, respiratory rate of 16, stable blood pressure Labs are significant for sodium of 131, total bili of 1.3, AST of 127, ALT of 111, lipase of 116, triglycerides of 700, Abdominal pelvic CT shows peripancreatic inflammatory fat stranding concerning for acute interstitial pancreatitis. no organized fluid collection. Also seen a liver lesion but patient reports that he had a biopsy of this lesion and was benign in the past. Patient will be admitted for management of acute pancreatitis Review of Systems Review of Systems: Yes all other systems are reviewed and are negative [facility]LY [facility] Medical History Arthritis Blind left eye Chronic back pain Diabetes Diverticulosis High cholesterol HTN (hypertension) Left knee pain Lumbar back pain with radiculopathy affecting lower extremity Morbid obesity Osteoarthritis of left knee Sacroiliitis Sleep apnea Family History Mother Intestinal cancer Brother Narcolepsy Surgical History History of esophagogastroduodenoscopy (EGD) History of hernia surgery History of testicular surgery Hx of colonoscopy S/P nasal surgery Social History Household Members: Children Housing: Apartment Do you presently have visiting nurse or other home services: No Alcohol intake: current Alcohol intake frequency: a few times a month Alcohol type: beer and hard liquor Patient Tobacco Use Status: Never used Tobacco e-Cigarette/Vaping Use: Never Used Second Hand Smoke Exposure: No Advance Directives: No Advance Directives Information Provided: No service: No Current occupational status: unemployed Current occupation: left handed Meds Allergies Allergy/AdvReac Type Severity Reaction Status Date / Time No Known Allergies Allergy Verified 10/24/21 11:12 Active Medications: Current Medications Acetaminophen (Acetaminophen 325 Mg Tablet) 650 mg PO Q6H PRN PRN Reason: Pain, Mild (Pain Scale 1-3) Amlodipine Besylate (Amlodipine Besylate 10 Mg Tablet) 10 mg PO DAILY [facility]; Protocol Atorvastatin Calcium (Atorvastatin Calcium 40 Mg Tablet) 40 mg PO DAILY [facility] Baclofen (Baclofen 20 Mg Tablet) 20 mg PO TID [facility] Buspirone HCl (Buspirone Hcl 5 Mg Tablet) 5 mg PO DAILY [facility] Dextrose (Dextrose 50 % 25 Gm/50 Ml Syringe) 25 gm IVPUSH Q15M PRN; Protocol PRN Reason: per Hypoglycemia Standing Ord. Enoxaparin Sodium (Enoxaparin Sodium 40 Mg/0.4 Ml Syringe) 40 mg SUBCUT Q24H [facility] Escitalopram Oxalate (Escitalopram Oxalate 20 Mg Tablet) 20 mg PO DAILY [facility] Glucose (Glucose Gel 15 Gm Gel..Gram.) 15 gm PO Q15M PRN; Protocol PRN Reason: per Hypoglycemia Standing Ord. Lactated Ringer's (Lr) 1,000 mls @ 200 mls/hr IVCONT .Q5H [facility] Insulin Glargine (Insulin Glargine,Hum.Rec.Anlog 100 Unit/Ml 10 Ml Vial) 22 unit SUBCUT BEDTIME [facility] Insulin Human Lispro (Insulin Lispro 100 Unit/Ml 3 Ml Vial) 0 unit SUBCUT QIDACHS [facility]; Protocol Lisinopril (Lisinopril 10 Mg Tablet) 30 mg PO DAILY [facility]; Protocol Lorazepam (Lorazepam 1 Mg Tablet) 2 mg PO BID PRN PRN Reason: Anxiety Metoprolol Succinate (Metoprolol Succinate Er 25 Mg Tab.Er.24h) 25 mg PO DAILY [facility]; Protocol Morphine Sulfate (Morphine Sulfate 4 Mg/Ml Cartridge) 4 mg IVPUSH Q4H PRN; Protocol PRN Reason: Pain, Severe (Pain Scale 7-10) Multivitamins/Vitamin C (Multivitamin Tablet) 1 tab PO DAILY [facility] Non-Formulary Medication (Melatonin) 10 mg PO BEDTIME PRN PRN Reason: Insomnia Omeprazole (Omeprazole 20 Mg Capsule.) 20 mg PO BID [facility] Ondansetron HCl (Ondansetron Hcl 4 Mg/2 Ml Vial) 4 mg IVPUSH Q8H PRN PRN Reason: Nausea and Vomiting Pharmacy Consult (Consult Rx Perform Med Rec) 1 each MISCELLANE ONCE PRN PRN Reason: Consult order Sodium Chloride (0.9 % Sodium Chloride Flush 3 Ml Syringe) 3 ml IVFLUSH QSHIFT [facility] Home Medications Medication Instructions Recorded Confirmed Last Taken Type melatonin 5 mg tablet 10 mg PO BEDTIME PRN 08/29/20 11/02/21 Unknown History atorvastatin 40 mg tablet 40 mg PO DAILY 06/22/21 11/02/21 11/01/21 History escitalopram oxalate 20 mg tablet 20 mg PO DAILY 06/22/21 11/02/21 11/01/21 History glipizide 5 mg tablet 5 mg PO BIDAC 06/22/21 11/02/21 11/01/21 History insulin glargine 100 unit/mL (3 22 unit SUBCUT BEDTIME 06/22/21 11/02/21 11/01/21 History mL) subcutaneous pen (Lantus Solostar U-100 Insulin) empagliflozin 25 mg tablet 25 mg PO DAILY 08/23/21 11/02/21 11/01/21 History (Jardiance) multivitamin 1 tab PO DAILY 10/24/21 11/02/21 11/01/21 History buspirone 5 mg tablet 5 mg PO DAILY 11/02/21 11/02/21 11/01/21 History docusate sodium 100 mg capsule 100 mg PO DAILY PRN 11/02/21 11/02/21 Unknown History lisinopril 30 mg tablet 1 tab PO DAILY 11/02/21 11/02/21 11/01/21 History lorazepam 2 mg tablet 2 mg PO BID PRN 11/02/21 11/02/21 Unknown History metronidazole 500 mg tablet 500 mg PO BID 11/02/21 11/02/21 11/01/21 History omeprazole 20 mg capsule,delayed 20 mg PO BID 11/02/21 11/02/21 11/01/21 History release tetracycline 500 mg capsule 500 mg PO Q12H 11/02/21 11/02/21 11/01/21 History Physical Exam Vital Signs and Narrative: Vital Signs: Last Vital Signs Temp 97.9 F 11/02/21 15:09 Pulse 100 11/02/21 18:35 Resp 18 11/02/21 18:35 BP 136/93 H 11/02/21 18:35 Pulse Ox 99 11/02/21 18:35 BMI result Body Mass Index 36.7 Const: General: cooperative and no acute distress Orientation/consciousness: patient oriented x3 Eyes: General: appearance normal, both eyes and all related structures Pupils: Equal, round and reactive pupils present Resp: Effort & Inspection: normal respiratory effort Auscultation: clear to auscultation bilaterally Cardio: Rate: regular rate Rhythm: regular rhythm GI: Other: tenderness in the epigastric region, no rebound or guarding Palpation (GI): Soft to palpation Auscultation: normal bowel sounds Skin: General skin exam: no rashes or lesions noted Neuro: General: patient oriented x3 Cranial nerves: Yes Equal, round and reactive pupils present Cognition (Neuro): normal cognition Extrem: General: Yes normal to inspection and Yes no pedal edema Results Labs CBC and Chem 7: 11/02/21 09:22 11/02/21 09:22 Labs: Laboratory Results - last 24 hr 11/02/21 11/02/21 11/02/21 09:22 09:22 09:22 MCV 88.6 MCH 31.0 MCHC 35.0 RDW 13.1 Plt Count 221 MPV 10.7 Immature Gran % (Auto) 0.3 Neut % (Auto) 59.9 Lymph % (Auto) 28.2 Band[place] % (Auto) 9.3 Eos % (Auto) 1.5 Baso % (Auto) 0.8 Lymph # (Auto) 2.8 [place] # (Auto) 0.9 Eos # (Auto) 0.2 Baso # (Auto) 0.1 Abs Immat Gran (auto) 0.03 Absolute Neuts (auto) 6.0 Absolute Nucleated RBC 0.000 Nucleated RBC % (auto) 0.0 PT INR Anion Gap 19 Estim Creat Clear Calc 119.5 Estimated GFR > 60 Random Glucose 221 H Calcium 9.2 Magnesium 1.8 Total Bilirubin 1.3 H Direct Bilirubin 0.6 H AST 127 H ALT 111 H Alkaline Phosphatase 150 H D Troponin I High Sens 11.0 Total Protein 7.5 Albumin 4.2 Triglycerides 704 Lipase 116 H COVID-19 ([facility]) COVID-19 Clin Com 11/02/21 11/02/21 11/02/21 13:45 13:45 13:45 MCV MCH MCHC RDW Plt Count MPV Immature Gran % (Auto) Neut % (Auto) Lymph % (Auto) [place] % (Auto) Eos % (Auto) Baso % (Auto) Lymph # (Auto) [place] # (Auto) Eos # (Auto) Baso # (Auto) Abs Immat Gran (auto) Absolute Neuts (auto) Absolute Nucleated RBC Nucleated RBC % (auto) PT 14.3 H INR 1.3 H Anion Gap Estim Creat Clear Calc Estimated GFR Random Glucose Calcium Magnesium Total Bilirubin Direct Bilirubin AST ALT Alkaline Phosphatase Troponin I High Sens 11.2 Total Protein Albumin Triglycerides Lipase COVID-19 ([facility]) Negative COVID-19 Clin Com See Note Imaging Radiologist's Impressions: Impressions Chest X-Ray 11/02/21 13:00 IMPRESSION: No acute cardiopulmonary process. Interval improvement in previously seen nodular infiltrates favoring a previous infectious/inflammatory process. Abdomen Ultrasound 11/02/21 14:00 IMPRESSION: *Redemonstration of hypodense focal lesion in the liver right lobe 2.4 cm unchanged from prior ultrasound of April 2021, this is indeterminant, consider correlation with follow-up MRI liver protocol for further investigation to rule out neoplasm. *Increased echogenicity of the liver parenchyma, this can be seen in the setting of hepatic steatosis or liver parenchymal disease. *No ultrasound explanation for patient's pain symptoms, no evidence of gallbladder disease or gallstones. Abdomen/Pelvis CT 11/02/21 16:25 IMPRESSION: Peripancreatic inflammatory fat stranding concerning the pancreatic head compatible with interstitial pancreatitis. Increase is homogeneously enhancing without evidence of necrosis. No organized fluid collection. A 1.9 cm indeterminate hypervascular liver lesion in hepatic segment 4B similar to prior. Again recommend definitive characterization with MR abdomen liver protocol with contrast if one has not already been obtained. Hepatic steatosis. Assessment and Plan (1) Acute alcoholic pancreatitis: Status: Acute (2) Elevated liver enzymes: Status: Acute Plan 51-year-old male with past medical history of hypertension, diabetes, LIANE not on CPAP, alcohol abuse presents to the hospital with complaints of epigastric pain found to have acute pancreatitis # acute pancreatitis - likely secondary to alcohol abuse - no evidence of cholelithiasis on CT abdomen or ultrasound, triglycerides elevated but less than 1000 - drinks 4 days a week, about 3-4 about, daily - at this time will start him on aggressive IV fluid, NPO - Pain control - counseling done about alcohol abstinence as this will reoccur patient continues to drink # elevated liver enzymes - likely secondary to alcohol abuse - follow LFTs # liver lesion - per patient, chronic - according to patient biopsy done in the past, showed benign findings # diabetes - hold oral antihyperglycemics - continue insulin, will add low-dose sliding scale insulin, diabetic diet # hypertension - stable - continue home antihypertensive # LIANE - waiting for CPAP at home DVT prophylaxis: Lovenox given acute pancreatitis, patient will require a medically necessary to night admission for IV hydration, and monitoring of acute pancreatitis Quality Stroke Does the patient have a stroke diagnosis?: No VTE Prior VTE?: No VTE Risk Level:: Medical - moderate - high VTE Device Contraindication: Treatment Not Indicated VTE Drug Contraindication: N/A - Med Ordered
--- NOTE | 2021-11-02 21:47 | MHC.CM.PN ---
CM met with patient with medical corps officer, as pt is Telugu Speaking. HCP on file. Amanda De Dios, daughter ([phone]). Pt has NOT received any Covid vaccinations or the flu shot. Lives with daughter, has DM testing supplies and no services. D/C plan:Home without services. Pt needs Recovery/CARE services. Family to provide transportation home. CM to follow for d.c needs.
[2021-11-02] MEDS: Enoxaparin Sodium 40 MG/0.4 ML SYRINGE SUBCUT (23:10)
[2021-11-02] MEDS: Insulin Glargine,Hum.rec.anlog 100 UNIT/ML 10 ML VIAL 22 UNIT SUBCUT (23:11)
[2021-11-02] MEDS: Lactated Ringers 1,000 ML 200 ML IVCONT (23:16)
[2021-11-03] VITALS (8 sets, daily range): BP systolic 133–159; BP diastolic 67–94; PULSE 86–112; RESP 16–18; TEMP 36.4–37.1; O2SAT 87–98
[2021-11-03 06:24] LABS: MANUAL DIFF FLAG NO
[2021-11-03 06:28] LABS: Basophils Absolute Auto 0.1 X10*3/uL (0.0-0.2); Basophils Percent Auto 0.4 % (0-2); Eosinophils Absolute Auto 0.1 X10*3/uL (0.0-0.4); Eosinophils Percent Auto 0.6 % (0-4); Hematocrit 45.6 % (42.0-52.0); Hemoglobin 15.6 g/dl (14.0-18.0); Imm Gran Abs Auto 0.05 X10*3/uL (0.00-0.03); Imm Gran Pct Auto 0.4 % (0.0-0.4); Lymphocytes Absolute Auto 2.2 X10*3/uL (1.2-4.9); Lymphocytes Percent Auto 19.5 % (20-40); Mean Corpuscular HGB Conc 34.2 g/dl (31.0-36.0); Mean Corpuscular Hemoglobin 31.1 pg (27.0-33.0); Mean Corpuscular Volume 90.8 fL (80.0-98.0); Mean Platelet Volume 10.9 fL (9.4-12.4); Monocytes Percent Auto 8.9 % (2-11); Neutrophils Absolute Auto 7.9 x10*3/uL (2.0-8.3); Neutrophils Percent Auto 70.2 % (45-73); Platelet Count 197 X10*3/uL (160-400); Red Blood Count 5.02 X10*6/uL (4.60-5.80); Red Cell Distribution Width 13.2 % (11.0-16.0); White Blood Count 11.3 X10*3/uL (4.8-10.8)
[2021-11-03 06:44] LABS: Anion Gap 16 (12-20); Blood Urea Nitrogen 9 mg/dL (9-16); Calcium 9.4 mg/dL (8.4-10.2); Carbon Dioxide 25 mmol/L (22-29); Chloride 94 mmol/L (96-108); Creatinine Clr Calc Pharmacy 134.4; Estimated Glomerular Filt Rate > 60; Glucose Random 240 mg/dL (60-115); Potassium 3.7 mmol/L (3.3-5.1); Sodium 131 mmol/L (135-145)
[2021-11-03] MEDS: Lactated Ringers 1,000 ML 200 ML IVCONT ×4 (07:13→22:58)
[2021-11-03 07:43] LABS: Glucose, Whole Blood 262 mg/dL (60-115)
--- NOTE | 2021-11-03 08:09 | P.PNIM_ITS ---
Subjective Subjective Date of Service: 11/03/21 Interval History: Acute pancreatitis Review of Systems Patient still has significant abdominal pain, cannot tolerate diet , feel nauseated Denies any vomiting, shortness of breath or cough or phlegm. Physical Exam Vital Signs: Vital Signs: Last Vital Signs Temp 97.9 F 11/02/21 15:09 Pulse 86 11/03/21 04:10 Resp 18 11/03/21 04:10 BP 133/67 11/03/21 04:10 Pulse Ox 94 11/03/21 04:10 BMI result Body Mass Index 36.7 Appearance: Alert.? Oriented X3.? not in distress.? Eyes: Pupils equal, round and reactive to light.? Sclera nonicteric.? ENT: Pharynx normal.? Moist mucous membranes. cvs: rrr, [id number] , no murmur res: clear to auscultation ,no rhonchii or wheezing abd: no rebound or guarding, left sided abd pain , bs present. ext pulses present , no cyanosis ,Gait well balanced well coordinated. neuro: axo3 , nonfocal. Objective Data Active Medications Acetaminophen (Acetaminophen 325 Mg Tablet) 650 mg PO Q6H PRN PRN Reason: Pain, Mild (Pain Scale 1-3) Amlodipine Besylate (Amlodipine Besylate 10 Mg Tablet) 10 mg PO DAILY [facility]; Protocol Atorvastatin Calcium (Atorvastatin Calcium 40 Mg Tablet) 40 mg PO DAILY [facility] Baclofen (Baclofen 20 Mg Tablet) 20 mg PO TID [facility] Buspirone HCl (Buspirone Hcl 5 Mg Tablet) 5 mg PO DAILY [facility] Dextrose (Dextrose 50 % 25 Gm/50 Ml Syringe) 25 gm IVPUSH Q15M PRN; Protocol PRN Reason: per Hypoglycemia Standing Ord. Enoxaparin Sodium (Enoxaparin Sodium 40 Mg/0.4 Ml Syringe) 40 mg SUBCUT Q24H [facility] Last Admin: 11/02/21 23:10 Dose: 40 mg Documented by: MUNA Escitalopram Oxalate (Escitalopram Oxalate 20 Mg Tablet) 20 mg PO DAILY [facility] Glucose (Glucose Gel 15 Gm Gel..Gram.) 15 gm PO Q15M PRN; Protocol PRN Reason: per Hypoglycemia Standing Ord. Lactated Ringer's (Lr) 1,000 mls @ 200 mls/hr IVCONT .Q5H [facility] Last Admin: 11/03/21 07:13 Dose: 200 mls/hr Documented by: NARDA Insulin Glargine (Insulin Glargine,Hum.Rec.Anlog 100 Unit/Ml 10 Ml Vial) 22 unit SUBCUT BEDTIME [facility] Last Admin: 11/02/21 23:11 Dose: 22 unit Documented by: MUNA Insulin Human Lispro (Insulin Lispro 100 Unit/Ml 3 Ml Vial) 0 unit SUBCUT QIDACHS [facility]; Protocol Last Admin: 11/03/21 07:30 Dose: Not Given Documented by: JORGE Non-Admin Reason: NPO Lisinopril (Lisinopril 10 Mg Tablet) 30 mg PO DAILY [facility]; Protocol Lorazepam (Lorazepam 1 Mg Tablet) 2 mg PO BID PRN PRN Reason: Anxiety Melatonin (Melatonin 3 Mg Tablet) 9 mg PO BEDTIME PRN PRN Reason: Insomnia Metoprolol Succinate (Metoprolol Succinate Er 25 Mg Tab.Er.24h) 25 mg PO DAILY [facility]; Protocol Morphine Sulfate (Morphine Sulfate 4 Mg/Ml Cartridge) 4 mg IVPUSH Q4H PRN; Protocol PRN Reason: Pain, Severe (Pain Scale 7-10) Multivitamins/Vitamin C (Multivitamin Tablet) 1 tab PO DAILY [facility] Omeprazole (Omeprazole 20 Mg Capsule.Dr) 20 mg PO BID@0630,1630 [facility] Last Admin: 11/03/21 07:31 Dose: Not Given Documented by: JORGE Non-Admin Reason: NPO Ondansetron HCl (Ondansetron Hcl 4 Mg/2 Ml Vial) 4 mg IVPUSH Q8H PRN PRN Reason: Nausea and Vomiting Pharmacy Consult (Consult Rx Perform Med Rec) 1 each MISCELLANE ONCE PRN PRN Reason: Consult order Sodium Chloride (0.9 % Sodium Chloride Flush 3 Ml Syringe) 3 ml IVFLUSH QSHIFT [facility] Last Admin: 11/03/21 07:31 Dose: Not Given Documented by: OJRGE Non-Admin Reason: IV Running Labs CBC & Chem 7: 11/03/21 06:07 11/03/21 06:07 Labs: Laboratory Results - last 24 hr 11/02/21 11/02/21 11/02/21 09:22 09:22 09:22 MCV 88.6 MCH 31.0 MCHC 35.0 RDW 13.1 Plt Count 221 MPV 10.7 Immature Gran % (Auto) 0.3 Neut % (Auto) 59.9 Lymph % (Auto) 28.2 Atkinson % (Auto) 9.3 Eos % (Auto) 1.5 Baso % (Auto) 0.8 Lymph # (Auto) 2.8 Atkinson # (Auto) 0.9 Eos # (Auto) 0.2 Baso # (Auto) 0.1 Abs Immat Gran (auto) 0.03 Absolute Neuts (auto) 6.0 Absolute Nucleated RBC 0.000 Nucleated RBC % (auto) 0.0 PT INR Anion Gap 19 Estim Creat Clear Calc 119.5 Estimated GFR > 60 POC Glucose Random Glucose 221 H Calcium 9.2 Magnesium 1.8 Total Bilirubin 1.3 H Direct Bilirubin 0.6 H AST 127 H ALT 111 H Alkaline Phosphatase 150 H D Troponin I High Sens 11.0 Total Protein 7.5 Albumin 4.2 Triglycerides 704 Lipase 116 H COVID-19 ([facility]) COVID-19 Clin Com 11/02/21 11/02/21 11/02/21 13:45 13:45 13:45 MCV MCH MCHC RDW Plt Count MPV Immature Gran % (Auto) Neut % (Auto) Lymph % (Auto) Atkinson % (Auto) Eos % (Auto) Baso % (Auto) Lymph # (Auto) Atkinson # (Auto) Eos # (Auto) Baso # (Auto) Abs Immat Gran (auto) Absolute Neuts (auto) Absolute Nucleated RBC Nucleated RBC % (auto) PT 14.3 H INR 1.3 H Anion Gap Estim Creat Clear Calc Estimated GFR POC Glucose Random Glucose Calcium Magnesium Total Bilirubin Direct Bilirubin AST ALT Alkaline Phosphatase Troponin I High Sens 11.2 Total Protein Albumin Triglycerides Lipase COVID-19 ([facility]) Negative COVID-19 Clin Com See Note 11/03/21 11/03/21 11/03/21 06:07 06:07 07:29 MCV 90.8 MCH 31.1 MCHC 34.2 RDW 13.2 Plt Count 197 MPV 10.9 Immature Gran % (Auto) 0.4 Neut % (Auto) 70.2 Lymph % (Auto) 19.5 L Atkinson % (Auto) 8.9 Eos % (Auto) 0.6 Baso % (Auto) 0.4 Lymph # (Auto) 2.2 Atkinson # (Auto) 1.0 Eos # (Auto) 0.1 Baso # (Auto) 0.1 Abs Immat Gran (auto) 0.05 H Absolute Neuts (auto) 7.9 Absolute Nucleated RBC 0.000 Nucleated RBC % (auto) 0.0 PT INR Anion Gap 16 Estim Creat Clear Calc 134.4 Estimated GFR > 60 POC Glucose 262 H Random Glucose 240 H Calcium 9.4 Magnesium Total Bilirubin Direct Bilirubin AST ALT Alkaline Phosphatase Troponin I High Sens Total Protein Albumin Triglycerides Lipase COVID-19 ([facility]) COVID-19 Clin Com Assessment and Plan (1) Acute alcoholic pancreatitis: Status: Acute (2) Pancreatitis: Status: Acute Plan 51-year-old male with past medical history of hypertension, diabetes, LIANE not on CPAP, alcohol abuse presents to the hospital with complaints of epigastric pain found to have acute pancreatitis 1.? acute pancreatitis-? likely secondary to alcohol abuse -? no evidence of cholelithiasis on CT abdomen or ultrasound, triglycerides elevated but less than 1000 -? drinks 4 days a week, about 3-4 about, daily -? at this time will start him on aggressive IV fluid, NPO, Pain control - ? counseling done about alcohol abstinence as this will reoccur patient continues to drink ?2.? elevated liver enzymes -? likely secondary to alcohol abuse -? follow LFTs ?3.? liver lesion -? per patient, chronic -? according to patient biopsy done in the past, showed benign findings 4. diabetes - ? hold oral antihyperglycemics -? continue insulin, will add low-dose sliding scale insulin, diabetic diet 5.? hypertension -? stable -? continue home antihypertensive 6. ? LIANE -? waiting for CPAP at home. 7. morbid obesity: advised to loss weight , consider outpatient bariatric appointment. ?DVT prophylaxis: Acturis Stroke Does the patient have a stroke diagnosis?: No VTE Prior VTE?: No VTE Risk Level:: Medical - moderate - high VTE Device Contraindication: Treatment Not Indicated VTE Drug Contraindication: N/A - Med Ordered
[2021-11-03 08:32] LABS: Alanine Aminotransferase 80 U/L (0-40); Alkaline Phosphatase 123 U/L (39-117); Aspartate Amino Transferase 73 U/L (5-37); Bilirubin Direct 0.9 mg/dL (0.0-0.5); Bilirubin Total 2.1 mg/dL (0.0-1.0); Total Protein 7.2 g/dL (6.5-8.0)
[2021-11-03] MEDS: ondansetron HCL 4 MG/2 ML VIAL IVPUSH (10:00)
[2021-11-03] MEDS: Morphine Sulfate 4 MG/ML CARTRIDGE IVPUSH ×2 (10:00→15:47)
--- NOTE | 2021-11-03 10:45 | PC.NURSE ---
pt alert and oriented, vss. pt reports 10/10 pain, prn iv pain med given as documented. pt remains npo.
[2021-11-03 12:42] LABS: Glucose, Whole Blood 255 mg/dL (60-115)
--- NOTE | 2021-11-03 15:25 | PC.NURSE ---
report miguel to TINA Phan. pt will be transported to room 379 by [employer]. vss.
--- NOTE | 2021-11-03 15:48 | PC.NURSE ---
pt reported 8/10 pain, prn iv morphine given prior to pt leaving unit.
[2021-11-03 16:30] LABS: Glucose, Whole Blood 319 mg/dL (60-115)
[2021-11-03] MEDS: Omeprazole 20 MG CAPSULE.DR PO (17:28)
[2021-11-03] MEDS: Insulin Lispro 100 UNIT/ML 3 ML VIAL SUBCUT (17:28)
[2021-11-03 20:00] LABS: Glucose, Whole Blood 205 mg/dL (60-115)
[2021-11-03] MEDS: Enoxaparin Sodium 40 MG/0.4 ML SYRINGE SUBCUT (21:22)
[2021-11-03] MEDS: Baclofen 20 MG TABLET PO (21:22)
[2021-11-03] MEDS: Insulin Glargine,Hum.rec.anlog 100 UNIT/ML 10 ML VIAL 22 UNIT SUBCUT (21:22)
[2021-11-03] MEDS: polyethylene glycoL 3350 17 GM POWD.PACK PO (22:56)
[2021-11-04 00:01] VITALS: PULSE 106
[2021-11-04] MEDS: Lactated Ringers 1,000 ML 200 ML IVCONT ×4 (04:02→20:51)
[2021-11-04] MEDS: Morphine Sulfate 4 MG/ML CARTRIDGE IVPUSH ×4 (04:10→18:12)
[2021-11-04 04:20] LABS: Hematocrit 41.7 % (42.0-52.0); Mean Corpuscular HGB Conc 33.6 g/dl (31.0-36.0); Mean Corpuscular Hemoglobin 30.8 pg (27.0-33.0); Mean Corpuscular Volume 91.9 fL (80.0-98.0); Platelet Count 135 X10*3/uL (160-400); Red Blood Count 4.54 X10*6/uL (4.60-5.80); Red Cell Distribution Width 13.2 % (11.0-16.0); White Blood Count 13.9 X10*3/uL (4.8-10.8)
[2021-11-04 04:56] LABS: Anion Gap 11 (12-20); Blood Urea Nitrogen 4 mg/dL (9-16); Calcium 8.8 mg/dL (8.4-10.2); Carbon Dioxide 30 mmol/L (22-29); Chloride 96 mmol/L (96-108); Creatinine Clr Calc Pharmacy 149.7; Estimated Glomerular Filt Rate > 60; Glucose Random 159 mg/dL (60-115); Potassium 3.8 mmol/L (3.3-5.1); Sodium 133 mmol/L (135-145)
[2021-11-04 06:31] VITALS: BP 150/81; PULSE 101; RESP 18; TEMP 37.1; O2SAT 92
[2021-11-04 07:51] LABS: Glucose, Whole Blood 159 mg/dL (60-115)
[2021-11-04] MEDS: busPIRone HCl 5 MG TABLET PO (08:49)
[2021-11-04] MEDS: Metoprolol Succinate ER 25 MG TAB.ER.24H PO (08:49)
[2021-11-04] MEDS: Baclofen 20 MG TABLET PO ×3 (08:49→20:53)
[2021-11-04] MEDS: Multivitamin TABLET 1 TAB PO (08:49)
[2021-11-04] MEDS: Escitalopram Oxalate 20 MG TABLET PO (08:49)
[2021-11-04] MEDS: amLODIPine Besylate 10 MG TABLET PO (08:49)
[2021-11-04] MEDS: lisinopriL 10 MG TABLET 30 MG PO (08:51)
[2021-11-04] MEDS: Atorvastatin Calcium 40 MG TABLET PO (08:51)
[2021-11-04 11:38] LABS: Glucose, Whole Blood 164 mg/dL (60-115)
--- NOTE | 2021-11-04 13:45 | P.PNIM_ITS ---
Subjective Subjective Date of Service: 11/04/21 Interval History: Acute pancreatitis Review of Systems still has significant abdominal pain, nausea denies any chest pain or shortness of breath or fever chills Physical Exam Vital Signs: Vital Signs: Last Vital Signs Temp 98.7 F 11/04/21 06:31 Pulse 101 H 11/04/21 06:31 Resp 18 11/04/21 06:31 BP 150/81 H 11/04/21 06:31 Pulse Ox 92 11/04/21 06:31 BMI result Body Mass Index 36.7 Appearance: Alert.? Oriented X3.? not in distress.? Eyes: Pupils equal, round and reactive to light.? Sclera nonicteric.? ENT: Pharynx normal.? Moist mucous membranes. cvs: rrr, [id number] , no murmur res: clear to auscultation ,no rhonchii or wheezing abd: no rebound or guarding, left sided abd pain , bs present. ext pulses present , no cyanosis ,Gait well balanced well coordinated. neuro: axo3 , nonfocal. Objective Data Active Medications Acetaminophen (Acetaminophen 325 Mg Tablet) 650 mg PO Q6H PRN PRN Reason: Pain, Mild (Pain Scale 1-3) Amlodipine Besylate (Amlodipine Besylate 10 Mg Tablet) 10 mg PO DAILY [facility]; Protocol Last Admin: 11/04/21 08:49 Dose: 10 mg Documented by: ANGELICA Atorvastatin Calcium (Atorvastatin Calcium 40 Mg Tablet) 40 mg PO DAILY [facility] Last Admin: 11/04/21 08:51 Dose: 40 mg Documented by: ANGELICA Baclofen (Baclofen 20 Mg Tablet) 20 mg PO TID [facility] Last Admin: 11/04/21 08:49 Dose: 20 mg Documented by: ANGELICA Buspirone HCl (Buspirone Hcl 5 Mg Tablet) 5 mg PO DAILY [facility] Last Admin: 11/04/21 08:49 Dose: 5 mg Documented by: ANGELICA Dextrose (Dextrose 50 % 25 Gm/50 Ml Syringe) 25 gm IVPUSH Q15M PRN; Protocol PRN Reason: per Hypoglycemia Standing Ord. Enoxaparin Sodium (Enoxaparin Sodium 40 Mg/0.4 Ml Syringe) 40 mg SUBCUT Q24H [facility] Last Admin: 11/03/21 21:22 Dose: 40 mg Documented by: ESVIN Escitalopram Oxalate (Escitalopram Oxalate 20 Mg Tablet) 20 mg PO DAILY [facility] Last Admin: 11/04/21 08:49 Dose: 20 mg Documented by: ANGELICA Glucose (Glucose Gel 15 Gm Gel..Gram.) 15 gm PO Q15M PRN; Protocol PRN Reason: per Hypoglycemia Standing Ord. Lactated Ringer's (Lr) 1,000 mls @ 200 mls/hr IVCONT .Q5H [facility] Last Admin: 11/04/21 08:54 Dose: 200 mls/hr Documented by: ANGELICA Insulin Glargine (Insulin Glargine,Hum.Rec.Anlog 100 Unit/Ml 10 Ml Vial) 22 unit SUBCUT BEDTIME [facility] Last Admin: 11/03/21 21:22 Dose: 22 unit Documented by: ESVIN Insulin Human Lispro (Insulin Lispro 100 Unit/Ml 3 Ml Vial) 0 unit SUBCUT QIDACHS [facility]; Protocol Last Admin: 11/04/21 11:46 Dose: Not Given Documented by: ANGELICA Non-Admin Reason: NPO Lisinopril (Lisinopril 10 Mg Tablet) 30 mg PO DAILY [facility]; Protocol Last Admin: 11/04/21 08:51 Dose: 30 mg Documented by: ANGELICA Lorazepam (Lorazepam 1 Mg Tablet) 2 mg PO BID PRN PRN Reason: Anxiety Melatonin (Melatonin 3 Mg Tablet) 9 mg PO BEDTIME PRN PRN Reason: Insomnia Metoprolol Succinate (Metoprolol Succinate Er 25 Mg Tab.Er.24h) 25 mg PO DAILY [facility]; Protocol Last Admin: 11/04/21 08:49 Dose: 25 mg Documented by: ANGELICA Morphine Sulfate (Morphine Sulfate 4 Mg/Ml Cartridge) 4 mg IVPUSH Q4H PRN; Protocol PRN Reason: Pain, Severe (Pain Scale 7-10) Last Admin: 11/04/21 08:51 Dose: 4 mg Documented by: ANGELICA Multivitamins/Vitamin C (Multivitamin Tablet) 1 tab PO DAILY [facility] Last Admin: 11/04/21 08:49 Dose: 1 tab Documented by: ANGELICA Omeprazole (Omeprazole 20 Mg Capsule.Dr) 20 mg PO BID@0630,1630 [facility] Last Admin: 11/04/21 06:22 Dose: Not Given Documented by: BRIANNA Non-Admin Reason: Patient Refused Ondansetron HCl (Ondansetron Hcl 4 Mg/2 Ml Vial) 4 mg IVPUSH Q8H PRN PRN Reason: Nausea and Vomiting Last Admin: 11/03/21 10:00 Dose: 4 mg Documented by: JORGE Pharmacy Consult (Consult Rx Perform Med Rec) 1 each MISCELLANE ONCE PRN PRN Reason: Consult order Polyethylene Glycol (Polyethylene Glycol 3350 17 Gm Powd.Pack) 17 gm PO DAILY PRN PRN Reason: constipation Last Admin: 11/03/21 22:56 Dose: 17 gm Documented by: ESVIN Sodium Chloride (0.9 % Sodium Chloride Flush 3 Ml Syringe) 3 ml IVFLUSH QSHIFT [facility] Last Admin: 11/04/21 08:48 Dose: Not Given Documented by: ANGELICA Non-Admin Reason: IV Running Labs CBC & Chem 7: 11/04/21 03:25 11/04/21 03:25 Labs: Laboratory Results - last 24 hr 11/03/21 11/03/21 11/04/21 15:55 19:40 03:25 MCV 91.9 MCH 30.8 MCHC 33.6 RDW 13.2 Plt Count 135 L D MPV 11.0 Absolute Nucleated RBC 0.000 Nucleated RBC % (auto) 0.0 Anion Gap Estim Creat Clear Calc Estimated GFR POC Glucose 319 H 205 H Random Glucose Calcium 11/04/21 11/04/21 11/04/21 03:25 07:46 11:20 MCV MCH MCHC RDW Plt Count MPV Absolute Nucleated RBC Nucleated RBC % (auto) Anion Gap 11 L Estim Creat Clear Calc 149.7 Estimated GFR > 60 POC Glucose 159 H 164 H Random Glucose 159 H Calcium 8.8 D Assessment and Plan (1) Pancreatitis: Status: Acute Plan 51-year-old male with past medical history of hypertension, diabetes, LIANE not on CPAP, alcohol abuse presents to the hospital with complaints of epigastric pain found to have acute pancreatitis 1.? acute pancreatitis-? likely secondary to alcohol abuse -? no evidence of cholelithiasis on CT abdomen or ultrasound, triglycerides elevated but less than 1000 -? drinks 4 days a week, about 3-4 about, daily -? at this time will start him on aggressive IV fluid, NPO, Pain control - ? counseling done about alcohol abstinence as this will reoccur patient continues to drink ?2.? elevated liver enzymes -? likely secondary to alcohol abuse -? follow LFTs ?3.? liver lesion -? per patient, chronic -? according to patient biopsy done in the past, showed benign findings 4. diabetes - ? hold oral antihyperglycemics -? continue insulin, will add low-dose sliding scale insulin, diabetic diet 5.? hypertension -? stable -? continue home antihypertensive 6. ? LIANE -? waiting for CPAP at home. 7. morbid obesity: advised to loss weight-adjust food calories , consider outpatient bariatric appointment. ?DVT prophylaxis: Lovenox In patient need:? Acute pancreatitis, unable to tolerate diet, persistent pain requiring IV pain medications. Quality Stroke Does the patient have a stroke diagnosis?: No VTE Prior VTE?: No VTE Risk Level:: Medical - moderate - high VTE Device Contraindication: Treatment Not Indicated VTE Drug Contraindication: N/A - Med Ordered
[2021-11-04 15:18] VITALS: BP 123/63; PULSE 76; RESP 18; TEMP 37; O2SAT 97
[2021-11-04 16:21] LABS: Glucose, Whole Blood 167 mg/dL (60-115)
[2021-11-04] MEDS: Insulin Lispro 100 UNIT/ML 3 ML VIAL SUBCUT ×2 (16:54→20:52)
[2021-11-04] MEDS: Omeprazole 20 MG CAPSULE.DR PO (16:54)
[2021-11-04 20:42] LABS: Glucose, Whole Blood 183 mg/dL (60-115)
[2021-11-04] MEDS: Enoxaparin Sodium 40 MG/0.4 ML SYRINGE SUBCUT (20:52)
[2021-11-04] MEDS: Insulin Glargine,Hum.rec.anlog 100 UNIT/ML 10 ML VIAL 22 UNIT SUBCUT (20:53)
[2021-11-04] MEDS: Lactated Ringers 1,000 ML 100 ML IVCONT (21:39)
[2021-11-04 23:50] VITALS: BP 134/73; PULSE 92; RESP 14; TEMP 37.5; O2SAT 93
[2021-11-05] MEDS: Omeprazole 20 MG CAPSULE.DR PO ×2 (06:10→17:34)
[2021-11-05] MEDS: Lactated Ringers 1,000 ML 100 ML IVCONT ×2 (06:11→17:41)
[2021-11-05] MEDS: Morphine Sulfate 4 MG/ML CARTRIDGE IVPUSH ×2 (06:14→17:41)
[2021-11-05 06:36] LABS: Anion Gap 10 (12-20); Blood Urea Nitrogen 4 mg/dL (9-16); Calcium 8.6 mg/dL (8.4-10.2); Carbon Dioxide 29 mmol/L (22-29); Chloride 97 mmol/L (96-108); Creatinine Clr Calc Pharmacy 159.9; Estimated Glomerular Filt Rate > 60; Glucose Random 165 mg/dL (60-115); Potassium 3.6 mmol/L (3.3-5.1); Sodium 132 mmol/L (135-145)
[2021-11-05 07:04] VITALS: BP 122/57; PULSE 85; RESP 18; TEMP 36.3; O2SAT 94
[2021-11-05 07:30] LABS: Glucose, Whole Blood 160 mg/dL (60-115)
[2021-11-05] MEDS: Metoprolol Succinate ER 25 MG TAB.ER.24H PO (09:04)
[2021-11-05] MEDS: Atorvastatin Calcium 40 MG TABLET PO (09:04)
[2021-11-05] MEDS: Escitalopram Oxalate 20 MG TABLET PO (09:04)
[2021-11-05] MEDS: Baclofen 20 MG TABLET PO ×3 (09:04→21:29)
[2021-11-05] MEDS: Insulin Lispro 100 UNIT/ML 3 ML VIAL SUBCUT ×4 (09:04→21:31)
[2021-11-05] MEDS: Multivitamin TABLET 1 TAB PO (09:04)
[2021-11-05] MEDS: lisinopriL 10 MG TABLET 30 MG PO (09:05)
[2021-11-05] MEDS: busPIRone HCl 5 MG TABLET PO (09:05)
[2021-11-05] MEDS: amLODIPine Besylate 10 MG TABLET PO (09:05)
[2021-11-05] MEDS: polyethylene glycoL 3350 17 GM POWD.PACK PO (09:06)
--- NOTE | 2021-11-05 11:35 | HO.PM.IMPN ---
Subjective Subjective Date of Service: 11/05/21 Interval History: acute pancreaitis Review of Systems Still has persistent abdominal pain, has nausea denies any chest pain or shortness of breath or fever or chills or cough or phlegm. Physical Exam Vital Signs: Vital Signs: Last Vital Signs Temp 97.4 F 11/05/21 07:04 Pulse 85 11/05/21 07:04 Resp 18 11/05/21 07:04 BP 122/57 L 11/05/21 07:04 Pulse Ox 94 11/05/21 07:04 BMI result Body Mass Index 36.7 Appearance: Alert.? Oriented X3.? not in distress.? Eyes: Pupils equal, round and reactive to light.? Sclera nonicteric.? ENT: Pharynx normal.? Moist mucous membranes. cvs: rrr, [id number] , no murmur res: clear to auscultation ,no rhonchii or wheezing abd: no rebound or guarding, left sided abd pain still significant pain , bs present. ext pulses present , no cyanosis , neuro: axo3 , nonfocal. Objective Data Active Medications Acetaminophen (Acetaminophen 325 Mg Tablet) 650 mg PO Q6H PRN PRN Reason: Pain, Mild (Pain Scale 1-3) Amlodipine Besylate (Amlodipine Besylate 10 Mg Tablet) 10 mg PO DAILY [facility]; Protocol Last Admin: 11/05/21 09:05 Dose: 10 mg Documented by: BENSON Atorvastatin Calcium (Atorvastatin Calcium 40 Mg Tablet) 40 mg PO DAILY [facility] Last Admin: 11/05/21 09:04 Dose: 40 mg Documented by: BENSON Baclofen (Baclofen 20 Mg Tablet) 20 mg PO TID [facility] Last Admin: 11/05/21 09:04 Dose: 20 mg Documented by: BENSON Buspirone HCl (Buspirone Hcl 5 Mg Tablet) 5 mg PO DAILY [facility] Last Admin: 11/05/21 09:05 Dose: 5 mg Documented by: BENSON Dextrose (Dextrose 50 % 25 Gm/50 Ml Syringe) 25 gm IVPUSH Q15M PRN; Protocol PRN Reason: per Hypoglycemia Standing Ord. Enoxaparin Sodium (Enoxaparin Sodium 40 Mg/0.4 Ml Syringe) 40 mg SUBCUT Q24H [facility] Last Admin: 11/04/21 20:52 Dose: 40 mg Documented by: ESVIN Escitalopram Oxalate (Escitalopram Oxalate 20 Mg Tablet) 20 mg PO DAILY [facility] Last Admin: 11/05/21 09:04 Dose: 20 mg Documented by: BENSON Glucose (Glucose Gel 15 Gm Gel..Gram.) 15 gm PO Q15M PRN; Protocol PRN Reason: per Hypoglycemia Standing Ord. Lactated Ringer's (Lr) 1,000 mls @ 100 mls/hr IVCONT .Q10H [facility] Last Admin: 11/05/21 06:11 Dose: 100 mls/hr Documented by: BRIANNA Insulin Glargine (Insulin Glargine,Hum.Rec.Anlog 100 Unit/Ml 10 Ml Vial) 22 unit SUBCUT BEDTIME [facility] Last Admin: 11/04/21 20:53 Dose: 22 unit Documented by: ESVIN Insulin Human Lispro (Insulin Lispro 100 Unit/Ml 3 Ml Vial) 0 unit SUBCUT QIDACHS [facility]; Protocol Last Admin: 11/05/21 09:04 Dose: 2 unit Documented by: BENSON Lisinopril (Lisinopril 10 Mg Tablet) 30 mg PO DAILY [facility]; Protocol Last Admin: 11/05/21 09:05 Dose: 30 mg Documented by: BENSON Lorazepam (Lorazepam 1 Mg Tablet) 2 mg PO BID PRN PRN Reason: Anxiety Melatonin (Melatonin 3 Mg Tablet) 9 mg PO BEDTIME PRN PRN Reason: Insomnia Metoprolol Succinate (Metoprolol Succinate Er 25 Mg Tab.Er.24h) 25 mg PO DAILY [facility]; Protocol Last Admin: 11/05/21 09:04 Dose: 25 mg Documented by: BENSON Morphine Sulfate (Morphine Sulfate 4 Mg/Ml Cartridge) 4 mg IVPUSH Q4H PRN; Protocol PRN Reason: Pain, Severe (Pain Scale 7-10) Last Admin: 11/05/21 06:14 Dose: 4 mg Documented by: BRIANNA Multivitamins/Vitamin C (Multivitamin Tablet) 1 tab PO DAILY [facility] Last Admin: 11/05/21 09:04 Dose: 1 tab Documented by: BENSON Omeprazole (Omeprazole 20 Mg Capsule.) 20 mg PO BID@0630,1630 [facility] Last Admin: 11/05/21 06:10 Dose: 20 mg Documented by: BRIANNA Ondansetron HCl (Ondansetron Hcl 4 Mg/2 Ml Vial) 4 mg IVPUSH Q8H PRN PRN Reason: Nausea and Vomiting Last Admin: 11/03/21 10:00 Dose: 4 mg Documented by: JORGE Pharmacy Consult (Consult Rx Perform Med Rec) 1 each MISCELLANE ONCE PRN PRN Reason: Consult order Polyethylene Glycol (Polyethylene Glycol 3350 17 Gm Powd.Pack) 17 gm PO DAILY PRN PRN Reason: constipation Last Admin: 11/05/21 09:06 Dose: 17 gm Documented by: BENSON Sodium Chloride (0.9 % Sodium Chloride Flush 3 Ml Syringe) 3 ml IVFLUSH QSHIFT [facility]UB[facility] Last Admin: 11/05/21 09:05 Dose: Not Given Documented by: BENSON Non-Admin Reason: IV Running Labs CBC & Chem 7: 11/04/21 03:25 11/05/21 06:03 Labs: Laboratory Results - last 24 hr 11/04/21 11/04/21 11/04/21 11:20 15:21 19:02 Anion Gap Estim Creat Clear Calc Estimated GFR POC Glucose 164 H 167 H 183 H Random Glucose Calcium 11/05/21 11/05/21 06:03 07:08 Anion Gap 10 L Estim Creat Clear Calc 159.9 Estimated GFR > 60 POC Glucose 160 H Random Glucose 165 H Calcium 8.6 Assessment and Plan (1) Acute alcoholic pancreatitis: Status: Acute (2) Pancreatitis: Status: Acute Plan 51-year-old male with past medical history of hypertension, diabetes, LIANE not on CPAP, alcohol abuse presents to the hospital with complaints of epigastric pain found to have acute pancreatitis 1.? acute pancreatitis-? likely secondary to alcohol abuse -? no evidence of cholelithiasis on CT abdomen or ultrasound, triglycerides elevated but less than 1000 -? drinks 4 days a week, about 3-4 about, daily -? at this time will start him on aggressive IV fluid, will try full liquid diet , Pain control - ? counseling done about alcohol abstinence as this will reoccur patient continues to drink if does not improve -may need Gi eval. ?2.? elevated liver enzymes -? likely secondary to alcohol abuse -? follow LFTs ?3.? liver lesion -? per patient, chronic -? according to patient biopsy done in the past, showed benign findings 4. diabetes - ? hold oral antihyperglycemics -? continue insulin, will add low-dose sliding scale insulin, diabetic diet 5.? hypertension -? stable -? continue home antihypertensive 6. ? LIANE -? waiting for CPAP at home. 7. morbid obesity: advised to loss weight-adjust food calories? , consider outpatient bariatric appointment. ?DVT prophylaxis: Lovenox In patient need:? Acute pancreatitis, unable to tolerate diet, persistent pain requiring IV pain medications. Quality Stroke Does the patient have a stroke diagnosis?: No VTE Prior VTE?: No VTE Risk Level:: Medical - moderate - high VTE Device Contraindication: Treatment Not Indicated VTE Drug Contraindication: N/A - Med Ordered
[2021-11-05 11:42] LABS: Glucose, Whole Blood 190 mg/dL (60-115)
[2021-11-05 16:00] VITALS: BP 112/66; PULSE 87; RESP 18; TEMP 36.8; O2SAT 93
[2021-11-05 16:41] LABS: Glucose, Whole Blood 171 mg/dL (60-115)
[2021-11-05 21:23] LABS: Glucose, Whole Blood 183 mg/dL (60-115)
[2021-11-05] MEDS: Enoxaparin Sodium 40 MG/0.4 ML SYRINGE SUBCUT (21:29)
[2021-11-05] MEDS: Insulin Glargine,Hum.rec.anlog 100 UNIT/ML 10 ML VIAL 22 UNIT SUBCUT (21:30)
[2021-11-05 23:35] VITALS: BP 133/77; PULSE 88; RESP 18; TEMP 36.3; O2SAT 94
[2021-11-06] MEDS: 0.9 % Sodium Chloride Flush 3 ML SYRINGE IVFLUSH (00:05)
[2021-11-06] MEDS: Morphine Sulfate 4 MG/ML CARTRIDGE IVPUSH ×2 (00:05→08:39)
[2021-11-06] MEDS: Lactated Ringers 1,000 ML 100 ML IVCONT (03:26)
[2021-11-06] MEDS: Omeprazole 20 MG CAPSULE.DR PO (06:37)
[2021-11-06 07:25] VITALS: BP 127/63; PULSE 84; RESP 18; TEMP 36.6; O2SAT 94
--- NOTE | 2021-11-06 07:34 | HO.PM.IMPN ---
Subjective Subjective Date of Service: 11/06/21 Interval History: acute pancreatitis Physical Exam Vital Signs: Vital Signs: Last Vital Signs Temp 97.9 F 11/06/21 07:25 Pulse 84 11/06/21 07:25 Resp 18 11/06/21 07:25 BP 127/63 11/06/21 07:25 Pulse Ox 94 11/06/21 07:25 BMI result Body Mass Index 36.7 Objective Data Active Medications Acetaminophen (Acetaminophen 325 Mg Tablet) 650 mg PO Q6H PRN PRN Reason: Pain, Mild (Pain Scale 1-3) Amlodipine Besylate (Amlodipine Besylate 10 Mg Tablet) 10 mg PO DAILY [facility]; Protocol Last Admin: 11/05/21 09:05 Dose: 10 mg Documented by: BENSON Atorvastatin Calcium (Atorvastatin Calcium 40 Mg Tablet) 40 mg PO DAILY [facility] Last Admin: 11/05/21 09:04 Dose: 40 mg Documented by: BENSON Baclofen (Baclofen 20 Mg Tablet) 20 mg PO TID [facility] Last Admin: 11/05/21 21:29 Dose: 20 mg Documented by: RUFINO Buspirone HCl (Buspirone Hcl 5 Mg Tablet) 5 mg PO DAILY [facility] Last Admin: 11/05/21 09:05 Dose: 5 mg Documented by: BENSON Dextrose (Dextrose 50 % 25 Gm/50 Ml Syringe) 25 gm IVPUSH Q15M PRN; Protocol PRN Reason: per Hypoglycemia Standing Ord. Enoxaparin Sodium (Enoxaparin Sodium 40 Mg/0.4 Ml Syringe) 40 mg SUBCUT Q24H [facility] Last Admin: 11/05/21 21:29 Dose: 40 mg Documented by: RUFINO Escitalopram Oxalate (Escitalopram Oxalate 20 Mg Tablet) 20 mg PO DAILY [facility] Last Admin: 11/05/21 09:04 Dose: 20 mg Documented by: BENSON Glucose (Glucose Gel 15 Gm Gel..Gram.) 15 gm PO Q15M PRN; Protocol PRN Reason: per Hypoglycemia Standing Ord. Lactated Ringer's (Lr) 1,000 mls @ 100 mls/hr IVCONT .Q10H [facility] Last Admin: 11/06/21 03:26 Dose: 100 mls/hr Documented by: BRIANNA Insulin Glargine (Insulin Glargine,Hum.Rec.Anlog 100 Unit/Ml 10 Ml Vial) 22 unit SUBCUT BEDTIME [facility] Last Admin: 11/05/21 21:30 Dose: 22 unit Documented by: RUFINO Insulin Human Lispro (Insulin Lispro 100 Unit/Ml 3 Ml Vial) 0 unit SUBCUT QIDACHS [facility]; Protocol Last Admin: 11/05/21 21:31 Dose: 2 unit Documented by: RUFINO Lisinopril (Lisinopril 10 Mg Tablet) 30 mg PO DAILY [facility]; Protocol Last Admin: 11/05/21 09:05 Dose: 30 mg Documented by: BENSON Lorazepam (Lorazepam 1 Mg Tablet) 2 mg PO BID PRN PRN Reason: Anxiety Melatonin (Melatonin 3 Mg Tablet) 9 mg PO BEDTIME PRN PRN Reason: Insomnia Metoprolol Succinate (Metoprolol Succinate Er 25 Mg Tab.Er.24h) 25 mg PO DAILY [facility]; Protocol Last Admin: 11/05/21 09:04 Dose: 25 mg Documented by: BENSON Morphine Sulfate (Morphine Sulfate 4 Mg/Ml Cartridge) 4 mg IVPUSH Q4H PRN; Protocol PRN Reason: Pain, Severe (Pain Scale 7-10) Last Admin: 11/06/21 00:05 Dose: 4 mg Documented by: BRIANNA Multivitamins/Vitamin C (Multivitamin Tablet) 1 tab PO DAILY [facility] Last Admin: 11/05/21 09:04 Dose: 1 tab Documented by: BENSON Omeprazole (Omeprazole 20 Mg Capsule.Dr) 20 mg PO BID@0630,1630 [facility] Last Admin: 11/06/21 06:37 Dose: 20 mg Documented by: BRIANNA Ondansetron HCl (Ondansetron Hcl 4 Mg/2 Ml Vial) 4 mg IVPUSH Q8H PRN PRN Reason: Nausea and Vomiting Last Admin: 11/03/21 10:00 Dose: 4 mg Documented by: JORGE Pharmacy Consult (Consult Rx Perform Med Rec) 1 each MISCELLANE ONCE PRN PRN Reason: Consult order Polyethylene Glycol (Polyethylene Glycol 3350 17 Gm Powd.Pack) 17 gm PO DAILY PRN PRN Reason: constipation Last Admin: 11/05/21 09:06 Dose: 17 gm Documented by: BENSON Sodium Chloride (0.9 % Sodium Chloride Flush 3 Ml Syringe) 3 ml IVFLUSH QSHIFT [facility] Last Admin: 11/06/21 00:05 Dose: 3 ml Documented by: BRIANNA Labs CBC & Chem 7: 11/04/21 03:25 11/05/21 06:03 Labs: Laboratory Results - last 24 hr 11/05/21 11/05/21 11/05/21 11:24 16:36 21:19 POC Glucose 190 H 171 H 183 H Assessment and Plan Plan 51-year-old male with past medical history of hypertension, diabetes, LIANE not on CPAP, alcohol abuse presents to the hospital with complaints of epigastric pain found to have acute pancreatitis 1.? acute pancreatitis-? likely secondary to alcohol abuse -? no evidence of cholelithiasis on CT abdomen or ultrasound, triglycerides elevated but less than 1000 -? drinks 4 days a week, about 3-4 about, daily -? at this time will start him on aggressive IV fluid, will try full liquid diet , Pain control - ? counseling done about alcohol abstinence as this will reoccur patient continues to drink if does not improve -may need Gi eval. ?2.? elevated liver enzymes -? likely secondary to alcohol abuse -? follow LFTs ?3.? liver lesion -? per patient, chronic -? according to patient biopsy done in the past, showed benign findings 4. diabetes - ? hold oral antihyperglycemics -? continue insulin, will add low-dose sliding scale insulin, diabetic diet 5.? hypertension -? stable -? continue home antihypertensive 6. ? LIANE -? waiting for CPAP at home. 7. morbid obesity: advised to loss weight-adjust food calories? , consider outpatient bariatric appointment. ?DVT prophylaxis: Lovenox In patient need:? Acute pancreatitis, unable to tolerate diet, persistent pain requiring IV pain medications. Quality Stroke Does the patient have a stroke diagnosis?: No VTE Prior VTE?: No VTE Risk Level:: Medical - moderate - high VTE Device Contraindication: Treatment Not Indicated VTE Drug Contraindication: N/A - Med Ordered
[2021-11-06 08:17] LABS: Glucose, Whole Blood 143 mg/dL (60-115)
[2021-11-06] MEDS: Acetaminophen 325 MG TABLET 650 MG PO (08:45)
[2021-11-06] MEDS: lisinopriL 10 MG TABLET 30 MG PO (10:15)
[2021-11-06] MEDS: Atorvastatin Calcium 40 MG TABLET PO (10:15)
[2021-11-06] MEDS: Metoprolol Succinate ER 25 MG TAB.ER.24H PO (10:16)
[2021-11-06] MEDS: amLODIPine Besylate 10 MG TABLET PO (10:16)
[2021-11-06] MEDS: Multivitamin TABLET 1 TAB PO (10:16)
[2021-11-06] MEDS: Baclofen 20 MG TABLET PO ×2 (10:16→13:11)
[2021-11-06] MEDS: busPIRone HCl 5 MG TABLET PO (10:17)
[2021-11-06] MEDS: Escitalopram Oxalate 20 MG TABLET PO (10:17)
[2021-11-06] MEDS: Insulin Lispro 100 UNIT/ML 3 ML VIAL SUBCUT (12:05)
[2021-11-06 12:08] LABS: Glucose, Whole Blood 280 mg/dL (60-115)
--- NOTE | 2021-11-06 12:14 | PM.DS ---
DS: Providers Provider Date of Service: 11/06/21 Date of admission: 11/02/21 21:02 Primary care physician: Karyn Myers MD DS: Diagnosis Discharge Diagnosis (1) Acute alcoholic pancreatitis: Status: Acute (2) Pancreatitis: Status: Acute DS: Summary Hospital Course Hospital Course: 51-year-old male with past medical history of diabetes, sleep apnea, hypertension, hyperlipidemia, alcohol abuse,? presents the hospital with complaints of epigastric pain.? Patient reports the symptoms started about 3 days ago, localized to the epigastric region, radiating to the right upper quadrant as well as to the back, associated with nausea and vomiting and low appetite, no diarrhea constipation, no urinary symptoms and no lower extremity at this time.? Patient reports that he drinks about 4 days a week 3-4 glasses of vodka daily.? He reports that he has been doing this for over 30 years.? He denies having any fever or chills. on arrival to the ED patient found to have? temp of 96.4 degrees, heart rate of 128, respiratory rate of 16, stable blood pressure Labs are significant for sodium of 131, total bili of 1.3, AST of 127, ALT of 111, lipase of 116,? triglycerides of 700, Abdominal pelvic CT shows? peripancreatic inflammatory fat stranding concerning for acute? interstitial pancreatitis.? no organized fluid collection. ? Also seen a liver lesion but patient reports that he had a biopsy of this lesion and was benign in the past. ? Patient will be admitted for management of acute pancreatitis. Hospital course: patient came to the hospital with acute pancreatitis, treated with IV hydration, pain medication and subsequently- patient seems to be improved, tolerated diet, going home with pain management and advanced diet. Will also give some laxatives. further management outpatient. Above management discussed with the patient in detail length she understand and in agreement with the above plan, time spent 50 minutes and 50% time spent on counseling. Significant findings: As above. Procedures performed: None. Treatment and response: As above. Complications: None. Time Spent with Patient Time attestation: Total time spent providing and/or coordinating discharge services: Discharge coordination time: Greater than 30 minutes Quality: Safe Use of Opioids Does Pt have an Active Cancer Diagnosis on the Problem List?: No Quality: Stroke Does the patient have a stroke diagnosis?: No Physical Exam Vital Signs: Vital Signs: Last Vital Signs Temp 97.9 F 11/06/21 07:25 Pulse 84 11/06/21 07:25 Resp 18 11/06/21 07:25 BP 127/63 11/06/21 07:25 Pulse Ox 94 11/06/21 07:25 BMI result Body Mass Index 36.7 Appearance: Alert.? Oriented X3.? not in distress.? Eyes: Pupils equal, round and reactive to light.? Sclera nonicteric.? ENT: Pharynx normal.? Moist mucous membranes. cvs: rrr, [id number] , no murmur res: clear to auscultation ,no rhonchii or wheezing abd: no rebound or guarding ,nt, bs present. ext pulses present , no cyanosis . neuro: axo3 , nonfocal. DS: Data Data Completed and Pending Labs on day of discharge: Laboratory Results - last 24 hr 11/05/21 11/05/21 11/06/21 16:36 21:19 07:24 POC Glucose 171 H 183 H 143 H 11/06/21 11:21 POC Glucose 280 H Additional Comments Additional comments: CT/CT abdomen pelvis w con IMPRESSION: ? Peripancreatic inflammatory fat stranding concerning the pancreatic head compatible with interstitial pancreatitis. Increase is homogeneously enhancing without evidence of necrosis. No organized fluid collection. ? A 1.9 cm indeterminate hypervascular liver lesion in hepatic segment 4B similar to prior. Again recommend definitive characterization with MR abdomen liver protocol with contrast if one has not already been obtained. ? Hepatic steatosis. Discharge Plan Discharge Patient Disposition: Home, Self-Care Discharge Diagnosis: Acute pancreatitis Referrals: Karyn Myers MD [Primary Care Provider] - 1 Week Discharge Medications: New polyethylene glycol 3350 [Miralax] 17 gram/dose powder 17 g PO DAILY Qty: 119 0RF Continued escitalopram oxalate 20 mg Tablet 20 mg PO DAILY 0RF atorvastatin 40 mg Tablet 40 mg PO DAILY 0RF glipizide 5 mg Tablet 5 mg PO BIDAC 0RF Lantus Solostar U-100 Insulin 100 unit/mL (3 mL) Insulin Pen 22 unit SUBCUT BEDTIME 0RF lisinopril 30 mg tablet 1 tab PO DAILY 0RF tetracycline 500 mg Capsule 500 mg PO Q12H 0RF buspirone [BuSpar] 5 mg Tablet 5 mg PO DAILY 0RF metronidazole 500 mg Tablet 500 mg PO BID 0RF lorazepam 2 mg Tablet 2 mg PO BID PRN (Reason: Anxiety) 0RF docusate sodium 100 mg Capsule 100 mg PO DAILY PRN (Reason: Constipation) 0RF omeprazole 20 mg Capsule,Delayed Release(Dr/Ec) 20 mg PO BID 0RF melatonin 5 mg tablet 10 mg PO BEDTIME PRN (Reason: Insomnia) 0RF amlodipine 10 mg tablet 10 mg PO DAILY Qty: 60 3RF multivitamin Tablet 1 tab PO DAILY 0RF ibuprofen 600 mg tablet 600 mg PO Q8H PRN (Reason: pain) Qty: 90 2RF Jardiance 25 mg tablet 25 mg PO DAILY 0RF metoprolol succinate 25 mg tablet extended release 24 hr 25 mg PO DAILY Qty: 60 3RF baclofen 20 mg tablet 20 mg PO TID 30 Days Qty: 90 8RF Diet: advance to usual diet Activity on Discharge: As tolerated Stand Alone Forms: Patient Portal Discharge page Care Plan Goals: patient came to the hospital with acute pancreatitis, treated with IV hydration, pain medication and subsequently- patient seems to be improved, tolerated diet, going home with pain management and advanced diet. Will also give some laxatives. further management outpatient Health Concerns: as above. Plan of Treatment: As above. Assessment: As above.
[2021-11-06] MEDS: oxyCODONE HCl Immed Release 5 MG TABLET 10 MG PO (13:11)
--- NOTE | 2021-11-06 13:23 | P.DS_ITS ---
DS: Providers Provider Date of Service: 11/06/21 Date of admission: 11/02/21 21:02 Primary care physician: Karyn Myers MD DS: Diagnosis Discharge Diagnosis (1) Acute alcoholic pancreatitis: Status: Acute (2) Pancreatitis: Status: Acute DS: Summary Hospital Course Hospital Course: 51-year-old male with past medical history of diabetes, sleep apnea, hypertension, hyperlipidemia, alcohol abuse,? presents the hospital with complaints of epigastric pain.? Patient reports the symptoms started about 3 days ago, localized to the epigastric region, radiating to the right upper quadrant as well as to the back, associated with nausea and vomiting and low appetite, no diarrhea constipation, no urinary symptoms and no lower extremity at this time.? Patient reports that he drinks about 4 days a week 3-4 glasses of vodka daily.? He reports that he has been doing this for over 30 years.? He denies having any fever or chills. on arrival to the ED patient found to have? temp of 96.4 degrees, heart rate of 128, respiratory rate of 16, stable blood pressure Labs are significant for sodium of 131, total bili of 1.3, AST of 127, ALT of 111, lipase of 116,? triglycerides of 700, Abdominal pelvic CT shows? peripancreatic inflammatory fat stranding concerning for acute? interstitial pancreatitis.? no organized fluid collection. ? Also seen a liver lesion but patient reports that he had a biopsy of this lesion and was benign in the past. ? Patient will be admitted for management of acute pancreatitis. Hospital course: patient came to the hospital with acute pancreatitis, treated with IV hydration, pain medication and subsequently- patient seems to be improved, tolerated diet, going home with pain management and advanced diet. Will also give some laxatives. liver lesion thought to be benign, stable on current abdominal imaging- further workup outpatient with GI. further management outpatient- Discussed with the patient follow-up with PCP and GI outpatient. In addition patient was strongly advised to quit alcohol. Above management discussed with the patient in detail length she understand and in agreement with the above plan, time spent 50 minutes and 50% time spent on counseling. Significant findings: As above. Procedures performed: None. Treatment and response: As above. Complications: None. Time Spent with Patient Time attestation: Total time spent providing and/or coordinating discharge services: Discharge coordination time: Greater than 30 minutes Quality: Safe Use of Opioids Does Pt have an Active Cancer Diagnosis on the Problem List?: No Quality: Stroke Does the patient have a stroke diagnosis?: No Physical Exam Vital Signs: Vital Signs: Last Vital Signs Temp 97.9 F 11/06/21 07:25 Pulse 84 11/06/21 07:25 Resp 18 11/06/21 07:25 BP 127/63 11/06/21 07:25 Pulse Ox 94 11/06/21 07:25 BMI result Body Mass Index 36.7 ?Appearance: Alert.? Oriented X3.? not in distress.? Eyes: Pupils equal, round and reactive to light.? Sclera nonicteric.? ENT: Pharynx normal.? Moist mucous membranes. cvs: rrr, [id number] , no murmur res: clear to auscultation ,no rhonchii or wheezing abd: no rebound or guarding, left sided abd pain still significant pain , bs present. ext pulses present , no cyanosis , neuro: axo3 , nonfocal. DS: Data Data Completed and Pending Labs on day of discharge: Laboratory Results - last 24 hr 11/05/21 11/05/21 11/06/21 16:36 21:19 07:24 POC Glucose 171 H 183 H 143 H 11/06/21 11:21 POC Glucose 280 H Discharge Plan Discharge Patient Disposition: Home, Self-Care Discharge Diagnosis: Acute pancreatitis Referrals: Karyn Myers MD [Primary Care Provider] - 1 Week Discharge Medications: New oxycodone 5 mg capsule 5 mg PO BID PRN (Reason: pain) Qty: 10 0RF polyethylene glycol 3350 [Miralax] 17 gram/dose powder 17 g PO DAILY Qty: 119 0RF Continued escitalopram oxalate 20 mg Tablet 20 mg PO DAILY 0RF atorvastatin 40 mg Tablet 40 mg PO DAILY 0RF glipizide 5 mg Tablet 5 mg PO BIDAC 0RF Lantus Solostar U-100 Insulin 100 unit/mL (3 mL) Insulin Pen 22 unit SUBCUT BEDTIME 0RF lisinopril 30 mg tablet 1 tab PO DAILY 0RF tetracycline 500 mg Capsule 500 mg PO Q12H 0RF buspirone [BuSpar] 5 mg Tablet 5 mg PO DAILY 0RF metronidazole 500 mg Tablet 500 mg PO BID 0RF lorazepam 2 mg Tablet 2 mg PO BID PRN (Reason: Anxiety) 0RF docusate sodium 100 mg Capsule 100 mg PO DAILY PRN (Reason: Constipation) 0RF omeprazole 20 mg Capsule,Delayed Release(Dr/Ec) 20 mg PO BID 0RF melatonin 5 mg tablet 10 mg PO BEDTIME PRN (Reason: Insomnia) 0RF amlodipine 10 mg tablet 10 mg PO DAILY Qty: 60 3RF multivitamin Tablet 1 tab PO DAILY 0RF ibuprofen 600 mg tablet 600 mg PO Q8H PRN (Reason: pain) Qty: 90 2RF Jardiance 25 mg tablet 25 mg PO DAILY 0RF metoprolol succinate 25 mg tablet extended release 24 hr 25 mg PO DAILY Qty: 60 3RF baclofen 20 mg tablet 20 mg PO TID 30 Days Qty: 90 8RF Discharge Orders: Discharge Order (Routine); Ordered 11/06/21 Ordered By: Anyi Munguia Diet: advance to usual diet Activity on Discharge: As tolerated Stand Alone Forms: Patient Portal Discharge page Care Plan Goals: patient came to the hospital with acute pancreatitis, treated with IV hydrat ion, pain medication and subsequently- patient seems to be improved, tolerated diet, going home with pain management and advanced diet. Will also give some laxatives. liver lesion thought to be benign, stable on current abdominal imaging- further workup outpatient with GI. further management outpatient- Discussed with the patient follow-up with PCP and GI outpatient. In addition patient was strongly advised to quit alcohol. Health Concerns: as above. Plan of Treatment: As above. Assessment: As above.
--- NOTE | 2021-11-06 13:27 | MHC.CM.PN ---
PATIENT IS DC HOME - SELF CARE. RN AWARE OF PLAN.
== END 2021-11-06 14:48 | disposition home or self-care (01) | DRG 282 ==
LOC: HO.ED 20:01 → HO.EDOVER 21:14 → HO.S3 11-03 14:42
PROVIDERS: Nurse Practitioner Family; Admitting Provider Internal Medicine; Emergency Provider Emergency Medicine; PCP Internal Medicine; Visit Provider Internal Medicine
DX: K85.20 Alcohol induced acute pancreatitis without necrosis or infection (principal); E66.01 Morbid (severe) obesity due to excess calories; G47.30 Sleep apnea, unspecified; E78.5 Hyperlipidemia, unspecified; I10 Essential (primary) hypertension; F10.10 Alcohol abuse, uncomplicated; Z68.36 Body mass index [BMI] 36.0-36.9, adult; Z20.822 Contact with and (suspected) exposure to COVID-19; Z80.0 Family history of malignant neoplasm of digestive organs; Z79.899 Other long term (current) drug therapy
CPT/HCPCS: 36415; 71046; 74177; 76705; 80048; 80076; 82947; 83690; 83735; 84478; 84484; 85025; 85027; 85610; 87635; 93005; 94660; 96361; 96374; 96375; 96376; 99284; 99285; J1650; J2270; J2405; Q9967

== ENCOUNTER 2021-11-13 09:32 | Outpatient (REF) | payer MEDICAID, SELFPAY ==
[2021-11-14 11:28] LABS: H Pylori Breath Test Negative (Negative)
== END 2021-11-13 09:33 | disposition home or self-care (01) ==
LOC: HO.LNP 09:32
PROVIDERS: PCP Internal Medicine; Referring Provider Internal Medicine; Visit Provider Nurse Practitioner Family
DX: A04.8 Other specified bacterial intestinal infections (principal)
CPT/HCPCS: 83013; 99211

== ENCOUNTER → 2022-03-18 13:06 | Outpatient (BNVA) | payer MEDICAID, SELFPAY | PROVIDERS: PCP Internal Medicine; Visit Provider Anesthesiology | DX: M47.817 Spondylosis without myelopathy or radiculopathy, lumbosacral region (principal); M46.1 Sacroiliitis, not elsewhere classified; E66.01 Morbid (severe) obesity due to excess calories; Z59.02 Unsheltered homelessness | CPT/HCPCS: 99212 ==

== ENCOUNTER → 2022-04-10 13:11 | Outpatient (BNVA) | payer MEDICAID, SELFPAY | PROVIDERS: PCP Internal Medicine; Referring Provider Internal Medicine; Visit Provider Nurse Practitioner Family | DX: R07.89 Other chest pain (principal); R06.02 Shortness of breath; G47.33 Obstructive sleep apnea (adult) (pediatric); E66.01 Morbid (severe) obesity due to excess calories; Z98.890 Other specified postprocedural states | CPT/HCPCS: 99212 ==

== ENCOUNTER → 2022-04-16 11:00 | Outpatient (BNVA) | payer MEDICAID, SELFPAY | PROVIDERS: PCP Internal Medicine; Visit Provider Internal Medicine Pulmonary Disease | DX: G47.33 Obstructive sleep apnea (adult) (pediatric) (principal); G47.34 Idiopathic sleep related nonobstructive alveolar hypoventilation; Z99.89 Dependence on other enabling machines and devices | CPT/HCPCS: 99212 ==

== ENCOUNTER → 2022-04-19 08:29 | Outpatient (BNVA) | payer MEDICAID, SELFPAY | PROVIDERS: PCP Internal Medicine; Referring Provider Internal Medicine; Visit Provider Nurse Practitioner Family | DX: K59.01 Slow transit constipation (principal); K21.9 Gastro-esophageal reflux disease without esophagitis | CPT/HCPCS: 99212 ==

== ENCOUNTER 2022-04-23 08:10 | Day surgery (SDC) | payer MEDICAID, SELFPAY ==
--- NOTE | ~2022-04-23 | FL_ITS ---
EXAMINATION: Intraoperative fluoroscopy CLINICAL INFORMATION: Lumbar stimulator COMPARISON: Intraoperative fluoroscopy October 05, 2021 TECHNIQUE: Intraoperative fluoroscopy was provided for use by Dr. Downing. A total of 2 images were saved to PACS. A radiologist was not present during imaging. Today's dictation is only for administrative purposes to document intraoperative fluoroscopic usage. TOTAL FLUOROSCOPIC TIME: 0.3 minutes FL/FL guidance in OR FINDINGS~\^^ Intraoperative fluoroscopy provided for use by Dr. Downing. Please see operative note for detailed findings.
[2022-04-23 08:40] VITALS: BP 111/66; PULSE 79; RESP 18; TEMP 36.3; O2SAT 96
[2022-04-23 08:43] VITALS: BMI 35.4
[2022-04-23 09:01] LABS: Glucose, Whole Blood 142 mg/dL (60-115)
--- NOTE | 2022-04-23 09:10 | MHC.SHP ---
Pre-Procedural Eval Section A Date of Service: 04/23/22 The patient is an INPATIENT: No Changes since office visit: Yes Patient answered all questions The History & Physical has been completed within 30 days and I have reviewed it.: No Section B Chief Complaint: Spondylosis without myelopathy or radiculopathy, l Details of Present Illness: as above Relevant Family History (Specify if Yes): No Relevant Social History: None Present Medications: see Short Stay Collaborative assessment Medical History: Significant History History of Previous Operations: No relevant previous surgery Allergies: Allergies Allergy/AdvReac Type Severity Reaction Status Date / Time No Known Allergies Allergy Verified 04/23/22 08:47 Review of Systems Sugical H&P ROS: Negative: Cardiovascular, Respiratory, Neurological, Psychiatric, Hem-Onc, Allergic/Immunologic, Gastrointestinal, Genitourinary, Musculoskeletal, Integumentary, Endocrine and Eyes/Ears/Nose/Throat and Yes, Specify: Constitution (morbid obesity) Exam Surgical H&P Exam: Normal: HEENT, Normal: Heart, Normal: Lungs, Normal: Extremities, Normal: Skin and Normal: Neurological and Significant Findings: Abdomen (enlarged 2 to i/a & s/q fat) Plan Diagnosis/Plan: Unchanged I have reviewed the history and physical and performed a pertinent physical examination on my patient. No changes have occurred unless specified.
--- NOTE | 2022-04-23 10:09 | MHC.SHP ---
Pre-Procedural Eval Section A Date of Service: 04/23/22 The patient is an INPATIENT: No Changes since office visit: Yes Patient answered all questions The History & Physical has been completed within 30 days and I have reviewed it.: No Section B Chief Complaint: Spondylosis without myelopathy or radiculopathy, l Details of Present Illness: as above L5 BILATERAL! Relevant Family History (Specify if Yes): No Relevant Social History: Other (specify) Present Medications: see Short Stay Collaborative assessment Medical History: Significant History History of Previous Operations: Relevant previous surgery/procedure and date(s) Allergies: Allergies Allergy/AdvReac Type Severity Reaction Status Date / Time No Known Allergies Allergy Verified 04/23/22 08:47 Review of Systems Sugical H&P ROS: Negative: Cardiovascular, Respiratory, Neurological, Psychiatric, Hem-Onc, Allergic/Immunologic, Gastrointestinal, Genitourinary, Musculoskeletal, Integumentary, Endocrine and Eyes/Ears/Nose/Throat and Yes, Specify: Constitution (MORBID OBESITY) Exam Surgical H&P Exam: Normal: HEENT, Normal: Heart, Normal: Lungs, Normal: Extremities, Normal: Skin and Normal: Neurological and Significant Findings: Abdomen (enlarged 2 to fat) Plan I have reviewed the history and physical and performed a pertinent physical examination on my patient. No changes have occurred unless specified.
[2022-04-23 11:12] VITALS: BP 122/77; PULSE 81; RESP 16; TEMP 36.6; O2SAT 95
[2022-04-23 11:25] VITALS: BP 131/77; PULSE 85; RESP 16; O2SAT 96
--- NOTE | 2022-04-23 11:49 | PM.OP ---
Brief Operative Note Date of Service: 04/23/22 Pre-op diagnosis: spondylosis lumbar spine Post-op diagnosis: same Procedure: Sprint PNS Implants: none permanent Surgeon: Holger Downing MD Anesthesia: local Was an Satellite Instruction Facilitator used for this Procedure?: No Estimated blood loss (mL): 0 Pathology: none sent Condition: stable Disposition: PACU
[2022-04-23] MEDS: Acetaminophen 325 MG TABLET 650 MG PO (11:50)
--- NOTE | 2022-04-23 11:51 | P.OP_ITS ---
Operative Note Operative Note Date of Service: 04/23/22 Narrative: ?Percutaneous implantation of peripheral nerve stimulation Sprint system bilateral L5. After the risks, benefits and alternatives were discussed with the patient and informed consent was obtained, patient was placed in the prone position . Time out was performed delineating correct site and side of the procedure , name and of the patient, patient participated in time out procedure. Sterilely draped C-arm was brought over the operating field and clear picture of the L5 lamina on the left and sequentially on the right was delineated on the screen. Thecentral portion of the laminas was chosen as a target of the needles tip insertion . After identifying and marking the intended target, the skin around the planned entry point and the subcutaneous tissues were injected with local an esthetic forming skin wheal.. A percutaneous sleeve and stimulating probe lead introduction system were assembled, inserted and advanced through the skin wheal to the? point of interest under C-arm view in tunnel vision fashion, the introducer needle was delivered to a location in proximity to the muscle.. Multiple stimulation parameters were used to deliver stimulation to the? nerve in concert with stimulating at multiple positions around the nerve. Nerve target acquisition was confirmed noting generation of? in the? corresponding to the nerve being stimulated. Various electrical parameter combinations were tested, and the lead location was adjusted (physically relocated) until the patient indicated? overlapping the distribution of the patient?s typical region of pain. The stimulating probe was removed from the introducer and a percutaneous lead was guided through the needle and delivered to a location in similar proximity to the nerve. Final location was verified with electrical stimulation. The introducer needles were removed, and the exposed end of the percutaneous leads were attached to an external stimulator unit. Various electrical parameter combinations were again tested until the patient indicated paresthesia or muscle tension overlapping the distribution of the patient?s typical region of pain. After confirming that lead impedance was in the normal range, the external unit was detached, the needle was removed, and the lead was anchored at the skin. The leads were threaded into the connector block and electrical continuity and desired patient response was confirmed. The connector block was attached to the external stimulator unit. The site was covered with a sterile occlusive dressing and a? image was taken to document final placement. Upon completion of the procedure the patient was taken to the PACU where he recovered.
--- NOTE | 2022-04-23 11:52 | PC.NURSE ---
Dr. Downing updated documentation and surgical consent to reflect the operating room schedule as written of lumbar sprint temporary peripheral nerve stimulator L5 bilateral. Peggy director supplier quality aware of these changes. Bilateral site does not need to be marked per hospital policy. Patient in agreeance. nutritionist public health present for consent review and signatures.
== END 2022-04-23 12:15 | disposition home or self-care (01) ==
PROVIDERS: PCP Internal Medicine; Visit Provider Anesthesiology
PROC: (CPT 64555; principal; 2022-04-23 10:00)
DX: M47.817 Spondylosis without myelopathy or radiculopathy, lumbosacral region (principal); G89.29 Other chronic pain; M46.1 Sacroiliitis, not elsewhere classified; E66.01 Morbid (severe) obesity due to excess calories; I10 Essential (primary) hypertension; E11.9 Type 2 diabetes mellitus without complications; G47.33 Obstructive sleep apnea (adult) (pediatric); Z79.899 Other long term (current) drug therapy
CPT/HCPCS: 64555; 82947; C1778; J0690

== ENCOUNTER → 2022-05-01 08:19 | Outpatient (BNVA) | payer MEDICAID, SELFPAY | PROVIDERS: PCP Internal Medicine; Visit Provider Anesthesiology | DX: M47.817 Spondylosis without myelopathy or radiculopathy, lumbosacral region (principal); M46.1 Sacroiliitis, not elsewhere classified; E66.01 Morbid (severe) obesity due to excess calories; Z68.37 Body mass index [BMI] 37.0-37.9, adult | CPT/HCPCS: 99212 ==

== ENCOUNTER → 2022-05-08 08:53 | Outpatient (BNVA) | payer MEDICAID, SELFPAY | PROVIDERS: PCP Internal Medicine; Visit Provider Anesthesiology | DX: Z48.01 Encounter for change or removal of surgical wound dressing (principal) | CPT/HCPCS: 99211 ==

== ENCOUNTER → 2022-06-19 10:48 | Outpatient (BNVA) | payer MEDICAID, SELFPAY | PROVIDERS: PCP Internal Medicine; Visit Provider Anesthesiology | DX: Z48.89 Encounter for other specified surgical aftercare (principal) | CPT/HCPCS: 99211 ==

== ENCOUNTER → 2022-07-04 10:04 | Outpatient (BNVA) | payer MEDICAID, SELFPAY | PROVIDERS: PCP Internal Medicine; Visit Provider Anesthesiology | DX: M47.817 Spondylosis without myelopathy or radiculopathy, lumbosacral region (principal); M46.1 Sacroiliitis, not elsewhere classified; E66.01 Morbid (severe) obesity due to excess calories; Z68.36 Body mass index [BMI] 36.0-36.9, adult | CPT/HCPCS: 99212 ==

== ENCOUNTER → 2022-11-12 09:33 | Outpatient (BNVA) | payer MEDICARE, MEDICAID, SELFPAY | PROVIDERS: PCP Internal Medicine; Visit Provider Nurse Practitioner Family | DX: K21.9 Gastro-esophageal reflux disease without esophagitis (principal); K59.01 Slow transit constipation; E66.01 Morbid (severe) obesity due to excess calories; K58.9 Irritable bowel syndrome, unspecified; K64.9 Unspecified hemorrhoids; Z68.36 Body mass index [BMI] 36.0-36.9, adult | CPT/HCPCS: 99212 ==

== ENCOUNTER 2023-02-05 10:51 | Outpatient (AMB) | payer MEDICARE, MEDICAID, SELFPAY ==
--- NOTE | 2023-02-05 11:08 | MHC.OFFVIS ---
Intake Vital Signs 02/05/23 11:17 Height 6 ft Weight 284 lb BMI 38.5 BP 130/74 Blood Pressure Location Lt brachial Position Sitting Pulse 99 Pulse Oximetry (%) 96 Intake Visit Reasons: Sleep apnea Allergies No Known Allergies Allergy (Verified 02/05/23 11:09) HPI Sleep apnea HPI Details 52-year-old gentleman followed for underlying severe obstructive sleep apnea. Patient symptoms a previously well controlled when he was able to use fullface mask. Recently, he has gotten in nasal mask only and was not able to use secondary to feeling suffocated. Patient would like to try using fullface mask again. [facility] Medical History Arthritis Blind left eye Chronic back pain Constipation Diabetes Diverticulosis High cholesterol HTN (hypertension) Left knee pain Lumbar back pain with radiculopathy affecting lower extremity Morbid obesity Osteoarthritis of left knee Sacroiliitis Sleep apnea Surgical History History of esophagogastroduodenoscopy (EGD) History of hernia surgery History of lumbar surgery History of testicular surgery Hx of colonoscopy S/P nasal surgery Family History Mother Intestinal cancer Brother Narcolepsy Social History Household Members: Children Housing: Apartment Do you presently have visiting nurse or other home services: No Alcohol intake: current Alcohol intake frequency: does not drink Alcohol type: beer and hard liquor Patient Tobacco Use Status: Former Tobacco user e-Cigarette/Vaping Use: Never Used Second Hand Smoke Exposure: No service: No Current occupational status: unemployed Current occupation: left handed Review of Systems Const Denies daytime sleepiness, Denies excessive sweating, Denies fatigue, Denies fever(s), Denies lethargy, Denies malaise, Denies night sweats, Denies snoring and Denies weight loss Eyes Denies blurry vision and Denies itchy eyes ENT Denies nasal congestion, Denies post nasal drip, Denies sinus pain, Denies sinus pressure and Denies other ( Thrush) Card Denies chest pain, Denies pedal edema, Denies dyspnea, Denies orthopnea and Denies paroxysmal nocturnal dyspnea Resp Denies cough, Denies hemoptysis, Denies excessive phlegm production, Denies dyspnea, Denies snoring and Denies wheezing GI Denies abdominal pain and Denies heartburn Musc Denies myalgias, Denies arthralgias and Denies joint swelling Skin/Breast Denies rash Neuro Denies memory loss and Denies seizure-like activity Psych Denies abnormal sleep pattern, Denies anxiety and Denies memory loss Endo Denies excessive sweating, Denies fatigue and Denies heat intolerance Олег/Lymph Denies easy bruising Aller/Immun Denies itchy eyes, Denies seasonal rhinorrhea and Denies wheezing Physical Exam Vital Signs: Last Vital Signs Pulse 99 02/05/23 11:17 BP 130/74 02/05/23 11:17 Pulse Ox 96 02/05/23 11:17 BMI result Body Mass Index 38.5 Const General: no acute distress and alert Nutritional Appearance: obese Orientation/consciousness: Other orientation findings ( oriented) HEENT Head: Yes atraumatic Eyes General: appearance normal, both eyes and all related structures Sclerae: sclerae normal EOM: EOMs intact bilaterally Neck Neck: Yes supple Lymphatic: no lymphadenopathy noted Resp Effort & Inspection: normal respiratory effort and no use of accessory muscles Auscultation: clear to auscultation bilaterally Cardio Rate: regular rate Rhythm: regular rhythm Heart sounds: no gallops, no murmurs and no rubs Skin General skin exam: other ( warm) Extrem General: No clubbing, No cyanosis and No edema Assessment & Plan Assessment & Plan (1) LIANE (obstructive sleep apnea): Code(s): G47.33 - Obstructive sleep apnea (adult) (pediatric) Plan: Underlying severe obstructive sleep apnea, now suboptimally controlled as patient was not able to tolerate nasal mask. Fullface mask provided. Patient has been encouraged to restart using his CPAP. Coding Level of Care Code Est Pt Level 3 (91135) Diagnoses LIANE (obstructive sleep apnea) G47.33
[2023-02-05 11:17] VITALS: BP 130/74; PULSE 99; O2SAT 96; BMI 38.5
== END 2023-02-05 11:27 | disposition home or self-care (01) ==
PROVIDERS: PCP Internal Medicine; Visit Provider Internal Medicine Pulmonary Disease
DX: G47.33 Obstructive sleep apnea (adult) (pediatric) (principal)
CPT/HCPCS: 99213

== ENCOUNTER → 2023-02-05 10:51 | Outpatient (BNVA) | payer MEDICARE, MEDICAID, SELFPAY | PROVIDERS: PCP Internal Medicine; Visit Provider Internal Medicine Pulmonary Disease | DX: G47.33 Obstructive sleep apnea (adult) (pediatric) (principal) | CPT/HCPCS: 99212 ==

== ENCOUNTER 2023-02-06 10:13 | Outpatient (AMB) | payer MEDICARE, MEDICAID, SELFPAY ==
--- NOTE | 2023-02-06 10:28 | MHC.OFFVIS ---
Intake Vital Signs 02/06/23 10:29 Height 6 ft Weight 281 lb BMI 38.1 BP 128/68 Blood Pressure Location Lt brachial Position Sitting Respiration 17 Pulse 100 Pulse Source Pulse Oximeter Pulse Oximetry (%) 96 Oxygen Delivery Method Room Air Intake Visit Reasons: Follow Up/Back Pain Intake Note: patient comes in for follow up. Allergies No Known Allergies Allergy (Verified 02/06/23 10:28) HPI HPI Comments History of Present Illness Details Cole is back in my office to discuss the procedures which could help he is mostly axial low back pain.? In the past he had multiple injections, he had medial branch blocks, he received a trial of sprint PNS.? He reports that trial of sprint was not very effective for his pain.? The rest of the treatment for axial back pain would require psychological evaluation.? This patient is the very stable psychologically however he is under observation of psychiatrist and psychologist [facility]. He can be scheduled for the psych evaluation by [facility] or he can have it with [facility] point. I will refer him to the [facility] and we will see whichever evaluation will be done sooner.? I think trial of Nevro spinal cord stimulator if approved by insurance company with good starts to treat his pain.. [facility] Medical History Arthritis Blind left eye Chronic back pain Constipation Diabetes Diverticulosis High cholesterol HTN (hypertension) Left knee pain Lumbar back pain with radiculopathy affecting lower extremity Morbid obesity Osteoarthritis of left knee Sacroiliitis Sleep apnea Surgical History History of esophagogastroduodenoscopy (EGD) History of hernia surgery History of lumbar surgery History of testicular surgery Hx of colonoscopy S/P nasal surgery Family History Mother Intestinal cancer Brother Narcolepsy Social History Household Members: Children Housing: Apartment Do you presently have visiting nurse or other home services: No Alcohol intake: current Alcohol intake frequency: does not drink Alcohol type: beer and hard liquor Patient Tobacco Use Status: Former Tobacco user e-Cigarette/Vaping Use: Never Used Second Hand Smoke Exposure: No service: No Current occupational status: unemployed Current occupation: left handed Review of Systems Const All systems reviewed & are unremarkable except as noted in HPI and below Physical Exam Vital Signs: Last Vital Signs Pulse 100 02/06/23 10:29 Resp 17 02/06/23 10:29 BP 128/68 02/06/23 10:29 Pulse Ox 96 02/06/23 10:29 Oxygen Delivery Method Room Air 02/06/23 10:29 BMI result Body Mass Index 38.1 Const Nutritional Appearance: obese morbidly obese Eyes General: appearance normal, both eyes and all related structures Pupils: Equal, round and reactive pupils present EOM: EOMs intact bilaterally Neck Neck: Yes full ROM Chest Chest palpation & inspection: normal inspection of the chest Resp Effort & Inspection: normal respiratory effort, able to speak in complete sentences, normal respiratory pattern, no audible wheezes and no cough Cardio Jugular venous distension: no JVD GI Inspection: Yes normal to inspection Back/Spine/Pelvis Other: He is able to stand on his tiptoes and on his heels demonstrating normal muscular strength of bilateral lower extremities. He is able to flex himself forward only to 50 ?. He reports that that aggravates his pain. He is able to flex back words to no more than 5? and it also aggravates his pain. He reports that both forward and backward is painful similarly. He admits Valsalva positive for pain increase. He denies incontinence with bowel or bladder. He denies urinary retention. He is able to perform straight leg rising maneuver without difficulty and without pain. Lassegue is also negative for pain increase. Tad test is positive for bilateral pain increase. Lumbar facet loading test is positive for pain increase. Flexing sideways aggravates his pain. Neuro Cranial nerves: Yes Equal, round and reactive pupils present Gait exam (Neuro): Normal gait present Motor exam (neuro): 5/5 motor strength present throughout Extrem General: No pedal edema Assessment & Plan Assessment & Plan (1) Spondylosis of lumbosacral spine without myelopathy: Code(s): M47.817 - Spondylosis without myelopathy or radiculopathy, lumbosacral region (2) Sacroiliitis: Code(s): M46.1 - Sacroiliitis, not elsewhere classified (3) Morbid obesity: Code(s): E66.01 - Morbid (severe) obesity due to excess calories Plan He reported very good pain relief on diagnostic medial branch block. Radiofrequency ablation resulted in good pain relief however it did not last long enough. sprint peripheral nerve stimulation procedure for his lumbar spine. Resulted in minimal pain improvement. Nevro SCS could be a good try for this patient. He needs to go for psychological evaluation. However this patient is homeless and he is under observation of psychiatrist and psychologist. He is being see by [facility] and he could be evaluated by them. Alternatively [facility] could evaluate him but the co-pay could be an obstacle since he is homeless individual. Medications: New gabapentin 300 mg PO TID 30 days 90 caps 6RF Coding Level of Care Code Est Pt Level 4 (69547) Diagnoses Spondylosis of lumbosacral spine without myelopathy M47.817 Sacroiliitis M46.1 Morbid obesity E66.01
[2023-02-06 10:29] VITALS: BP 128/68; PULSE 100; RESP 17; O2SAT 96; BMI 38.1
== END 2023-02-06 10:57 | disposition home or self-care (01) ==
PROVIDERS: PCP Internal Medicine; Visit Provider Anesthesiology
DX: M47.817 Spondylosis without myelopathy or radiculopathy, lumbosacral region (principal); M46.1 Sacroiliitis, not elsewhere classified; E66.09 Other obesity due to excess calories; Z68.38 Body mass index [BMI] 38.0-38.9, adult
CPT/HCPCS: 99214

== ENCOUNTER → 2023-02-06 10:13 | Outpatient (BNVA) | payer MEDICARE, MEDICAID, SELFPAY | PROVIDERS: PCP Internal Medicine; Visit Provider Anesthesiology | DX: M47.817 Spondylosis without myelopathy or radiculopathy, lumbosacral region (principal); M46.1 Sacroiliitis, not elsewhere classified; E66.01 Morbid (severe) obesity due to excess calories; Z68.38 Body mass index [BMI] 38.0-38.9, adult | CPT/HCPCS: 99212 ==